=== PATIENT | male | born 1945 | race Caucasian/White ===

== ENCOUNTER 2024-04-02 13:40 | Inpatient (IN) | payer MEDICARE, BC ==
[~2024-04-02] VITALS: Ht 172.7 cm; Wt 58.8 kg
[2024-04-02] MEDS: PROPOFOL 100 ML IV ONE (13:57)
[2024-04-02] MEDS: ROCURONIUM 10MG/ML 10ML VIAL IV ONE ×2 (13:59→14:07)
[2024-04-02] MEDS: ETOMIDATE (2MG/ML) 20ML VIAL IV ONE ×2 (13:59→14:06)
[2024-04-02] MEDS: PROPOFOL 100 ML IV SCH (14:13)
[2024-04-02 14:27] LABS: Urine Bacteria None Seen /hpf (None Seen)
[2024-04-02 14:30] VITALS: PULSE 140; RESP 16; O2SAT 93
[2024-04-02] MEDS: SODIUM CHLORIDE 0.9% 2,000 ML IV ONE (14:30)
[2024-04-02] MEDS: CEFEPIME 2GM/50ML NS 50 ML IV ONE ×2 (14:30→20:26)
[2024-04-02] MEDS: ONDANSETRON HCL 4 MG/2 ML VIAL IV ONE (14:30)
[2024-04-02 14:39] LABS: Urine Blood TRACE /uL (Negative); Urine Clarity Clear (Clear); Urine Color Yellow (Yellow); Urine Protein, UAD 1+ (Negative); Urine Specific Gravity 1.024 (1.001-1.035); Urine Urobilinogen Normal (Negative); Urine WBC 1 /hpf (0 - 3); Urine pH 5.5 (5.0-9.0)
[2024-04-02 14:57] LABS: Amphetamine Screen, Urine Neg (NEGATIVE)
[2024-04-02 14:58] LABS: Barbiturate Scree,Urine Neg (NEGATIVE); Benzodiazephine Screen, Urine Neg (NEGATIVE); Cannabinoid Screen, Urine Neg (NEGATIVE); Cocaine Screen, Urine Neg (NEGATIVE); Opiate Scree,Urine Neg (NEGATIVE); Phencyclidine Screen, Urine Neg (NEGATIVE)
[2024-04-02 15:10] LABS: Basophils # (auto) 0 10 ^3/uL (0-0.2); Basophils % (auto) 0.1 % (0.0-2.0); Eosinophils # (auto) 0 10 ^3/uL (0-0.8); Hematocrit 38.6 % (41.0-53.0); Hemoglobin 12.2 g/dL (13.5-17.5); Lymphocytes % (auto) 14.3 % (10.0-50.0); Mean Corpuscular Hemoglobin 27.6 pg (28.0-32.0); Mean Corpuscular Hgb Conc. 31.7 g/dL (32.0-36.0); Mean Corpuscular Volume 87.1 fL (80.0-100.0); Monocytes # (auto) 1.4 10 ^3/uL (0-1.3); Monocytes % (auto) 6.4 % (0.0-12.0); Neutrophils # (auto) 16.9 10 ^3/uL (1.6-8.6); Neutrophils % (auto) 79.2 % (37.0-80.0); Nucleated Red Blood Cells % 0.1 %; Platelet Count (auto) 282 10^3/uL (140-450); Red Blood Cells 4.43 10^6/uL (4.5-5.90); Red Cell Distribution Width 18.3 % (11.8-14.3); White Blood Cell 21.3 10^3/uL (4.4-10.8)
[2024-04-02 15:20] LABS: Albumin 4.1 g/dL (3.2-4.8); Alkaline Phosphatase 59 U/L (46-116); Anion Gap 8 (5-15); Aspartate Aminotransferase 15 U/L (13-40); Bilirubin, Total 1.9 mg/dL (0.2-1.0); Blood Urea Nitrogen 10 mg/dL (9-23); Calcium 9.1 mg/dL (8.7-10.4); Carbon Dioxide 22 mmol/L (20-30); Chloride 108 mmol/L (98-107); Glucose 191 mg/dL (74-106); Magnesium 1.7 mg/dL (1.6-2.6); Potassium 3.3 mmol/L (3.5-5.1); Sodium 138 mmol/L (136-145); Total Protein 7.8 g/dL (5.7-8.2)
[2024-04-02 15:24] LABS: Alanine Aminotransferase < 9 U/L (7-40)
[2024-04-02 15:25] LABS: Salicylate < 3.0 mg/dL (2.8-20.0)
[2024-04-02] MEDS: SODIUM CHLORIDE 0.9% 1,000 ML IV ONE (15:50)
[2024-04-02] MEDS: ACETAMINOPHEN IV 1000 MG/100ML (10MG/ML) IV STA (15:59)
[2024-04-02 16:01] LABS: Base Excess -12.8 mmol/L (-2.0-3.0)
[2024-04-02] MEDS: VANCOMYCIN 1GM/200ML 200 ML IV ONE (16:30)
[2024-04-02 16:52] LABS: Lactic Acid w/Reflex 2.1 mmol/L (0.4-2.0)
[2024-04-02] MEDS: AZITHROMYCIN 500MG/ 250ML 250 ML IV ONE (18:00)
[2024-04-02] MEDS ORDERED: NITROGLYCERIN 0.4 MG SL TAB SL PRN (19:00)
[2024-04-02] MEDS ORDERED: MORPHINE SULFATE INJ 2 MG/ml SYRG IV PRN (19:00)
[2024-04-02 19:30] VITALS: PULSE 126; RESP 27; O2SAT 95
[2024-04-02] MEDS ORDERED: VANCOMYCIN PER PHARMACY 0 MG IV SCH (19:30)
[2024-04-02] MEDS: MIDAZOLAM DRIP 50 mg/50mL 50 ML IV ONE (19:38)
[2024-04-02] MEDS ORDERED: CEFEPIME 2GM/50ML NS 50 ML IV ONE (19:45)
[2024-04-02] MEDS: MIDAZOLAM DRIP 50 mg/50mL 50 ML IV SCH (20:08)
[2024-04-02] MEDS: NOREPINEPHRINE 8 MG/250ML KIT 250 ML IV SCH (20:08)
[2024-04-02] MEDS ORDERED: DEXTROSE (50%) 50ML SYRG IV PRN (20:15)
[2024-04-02 20:16] LABS: Base Excess -8.6 mmol/L (-2.0-3.0)
[2024-04-02 20:22] VITALS: BP 77/56; PULSE 122; RESP 28; O2SAT 99
[2024-04-02] MEDS: POTASSIUM CHL 20MEQ/100ML 100 ML IV ONE (20:42)
[2024-04-02] MEDS: MAGNESIUM SULFATE 1GM/100ML 100 ML IV SCH (21:00)
[2024-04-02 21:30] VITALS: BP 99/62; PULSE 117; RESP 26; TEMP 100.2; O2SAT 99
[2024-04-02] MEDS: VANCOMYCIN 1.5GM/300ML 300 ML IV ONE (21:59)
[2024-04-02 22:03] VITALS: BP 100/62; PULSE 113; RESP 30; O2SAT 98
[2024-04-02 22:15] LABS: Base Excess -9.3 mmol/L (-2.0-3.0)
[2024-04-02] MEDS ORDERED: CLINIMIX PER PHARMACY 0 ML IV SCH (22:30)
[2024-04-02] MEDS: AMINO ACID INFUSION IN D10W 1,000 ML IV SCH (22:41)
[2024-04-03] VITALS (108 sets, daily range): BP systolic 83–152; BP diastolic 37–81; PULSE 65–137; RESP 11–32; TEMP 97.2–100.6; O2SAT 94–100
[2024-04-03] MEDS: ACCU-CHEK COMFORT CURVE STRIP VI SCH (00:16)
[2024-04-03] MEDS: InsuLIN REG 1unit/0.01ml Soln (100units/ml) SC SCH (00:17)
[2024-04-03] MEDS: fentaNYL Drip 2500mCg/250mlNS 250 ML IV SCH (02:00)
[2024-04-03 04:21] LABS: Basophils # (auto) 0 10 ^3/uL (0-0.2); Basophils % (auto) 0.2 % (0.0-2.0); Eosinophils # (auto) 0 10 ^3/uL (0-0.8); Hematocrit 33.2 % (41.0-53.0); Hemoglobin 10.8 g/dL (13.5-17.5); Lymphocytes % (auto) 7.6 % (10.0-50.0); Mean Corpuscular Hemoglobin 28.2 pg (28.0-32.0); Mean Corpuscular Hgb Conc. 32.5 g/dL (32.0-36.0); Monocytes # (auto) 0.8 10 ^3/uL (0-1.3); Monocytes % (auto) 5.8 % (0.0-12.0); Neutrophils # (auto) 11.6 10 ^3/uL (1.6-8.6); Neutrophils % (auto) 86.4 % (37.0-80.0); Platelet Count (auto) 205 10^3/uL (140-450); Red Blood Cells 3.81 10^6/uL (4.5-5.90); Red Cell Distribution Width 17.6 % (11.8-14.3); White Blood Cell 13.4 10^3/uL (4.4-10.8)
[2024-04-03 04:41] LABS: Albumin 3.3 g/dL (3.2-4.8); Alkaline Phosphatase 51 U/L (46-116); Anion Gap 4 (5-15); Aspartate Aminotransferase 25 U/L (13-40); BUN/Creatinine Ratio 15.8 (10.0-20.0); Blood Urea Nitrogen 12 mg/dL (9-23); Calcium 8.1 mg/dL (8.7-10.4); Carbon Dioxide 20 mmol/L (20-30); Chloride 111 mmol/L (98-107); Glucose 217 mg/dL (74-106); Magnesium 1.8 mg/dL (1.6-2.6); Potassium 3.9 mmol/L (3.5-5.1); Sodium 135 mmol/L (136-145)
[2024-04-03 04:42] LABS: Bilirubin, Total 0.7 mg/dL (0.2-1.0); Phosphorus 1.5 mg/dL (2.4-5.1); Total Protein 6.2 g/dL (5.7-8.2)
[2024-04-03 04:43] LABS: Alanine Aminotransferase < 9 U/L (7-40)
[2024-04-03] MEDS: CEFEPIME 2GM/50ML NS 50 ML IV SCH (06:00)
[2024-04-03] MEDS: ACETAMINOPHEN 325 MG TAB PO PRN (06:40)
[2024-04-03 08:19] LABS: Base Excess -6.6 mmol/L (-2.0-3.0)
[2024-04-03 09:34] LABS: Triglycerides 113 mg/dL (< 150)
[2024-04-03 09:35] LABS: LDL Cholesterol 18 mg/dL (< 100)
[2024-04-03 09:36] LABS: Cholesterol 64 mg/dL (< 200); HDL Cholesterol 23 mg/dL (40-59)
[2024-04-03] MEDS: HEPARIN SODIUM (PORCINE) 5000 UNITS/ML 1ML VIAL IV ONE (09:45)
[2024-04-03] MEDS: MAGNESIUM SULFATE 1GM/100ML 100 ML IV ONE ×2 (09:58→11:38)
[2024-04-03 10:39] LABS: INR 1.1 (0.9-1.15); Partial Thromboplastin Time 33.3 SEC (24.5-34.5); Prothrombin Time 11.6 sec (9.3-11.8)
[2024-04-03 10:57] LABS: Basophils # (auto) 0 10 ^3/uL (0-0.2); Basophils % (auto) 0.2 % (0.0-2.0); Eosinophils # (auto) 0 10 ^3/uL (0-0.8); Eosinophils % (auto) 0.1 % (0.0-7.0); Hematocrit 32.6 % (41.0-53.0); Hemoglobin 10.5 g/dL (13.5-17.5); Lymphocytes # (auto) 0.8 10 ^3/uL (0.4-5.4); Lymphocytes % (auto) 7.2 % (10.0-50.0); Mean Corpuscular Hemoglobin 28.4 pg (28.0-32.0); Mean Corpuscular Hgb Conc. 32.1 g/dL (32.0-36.0); Mean Corpuscular Volume 88.3 fL (80.0-100.0); Monocytes # (auto) 0.5 10 ^3/uL (0-1.3); Monocytes % (auto) 4.7 % (0.0-12.0); Neutrophils # (auto) 9.4 10 ^3/uL (1.6-8.6); Neutrophils % (auto) 87.8 % (37.0-80.0); Platelet Count (auto) 190 10^3/uL (140-450); Red Blood Cells 3.69 10^6/uL (4.5-5.90); Red Cell Distribution Width 18.3 % (11.8-14.3); White Blood Cell 10.7 10^3/uL (4.4-10.8)
[2024-04-03] MEDS: HEPARIN DRIP/D5W 100UNITS/ML 250 ML IV SCH ×2 (11:38→20:53)
[2024-04-03] MEDS: ASPirin 81 mg TAB PO SCH (11:38)
[2024-04-03] MEDS: ATORVASTATIN 20 MG TAB PO SCH (11:38)
[2024-04-03] MEDS ORDERED: ACCU-CHEK COMFORT CURVE STRIP VI SCH (12:00)
[2024-04-03] MEDS ORDERED: DEXTROSE (50%) 50ML SYRG IV SCH (12:00)
[2024-04-03] MEDS ORDERED: InsuLIN REG 1unit/0.01ml Soln (100units/ml) SC SCH (12:00)
[2024-04-03] MEDS: PANTOPRAZOLE 40 MG/10 ML VIAL INJ IV ONE (13:03)
[2024-04-03] MEDS: methylPREDNISolone SOD SUCC 40 MG/ML VL IV ONE (13:04)
[2024-04-03] MEDS: POTASSIUM PHOSPHATE 22 MEQ in SODIUM CHL 0.9% 100 ML IV ONE (13:15)
[2024-04-03] MEDS: AMIODARONE 450mg/250ml AE 250 ML IV ONE (13:32)
[2024-04-03] MEDS: AMIODARONE BOLUS KIT 100 ML IV ONE ×2 (13:33→13:38)
[2024-04-03] MEDS: AMIODARONE 450mg/250ml AE 250 ML IV SCH ×2 (13:48→20:50)
[2024-04-03] MEDS ORDERED: ALBUTEROL SULF 2.5 MG/0.5ML(0.5%) NEB SOLN NEB SCH (18:00)
[2024-04-03 18:46] LABS: % Iron Saturation 4.5 % (20-55)
[2024-04-03] MEDS: IPRATROPIUM BROM 0.5 MG/2.5ML INH SOL NEB SCH (18:55)
[2024-04-03] MEDS: LEVALBUTEROL HCL 1.25 MG/3 ML NEB NEB SCH (18:55)
[2024-04-03 19:39] LABS: INR 1.19 (0.9-1.15); Prothrombin Time 12.5 sec (9.3-11.8)
[2024-04-03 19:45] LABS: Partial Thromboplastin Time > 139.0 SEC (24.5-34.5)
[2024-04-03] MEDS ORDERED: APIX5TAB PO (20:11)
[2024-04-03] MEDS ORDERED: PREG200C36 PO (20:11)
[2024-04-03] MEDS ORDERED: GLIP5TAB21 PO (20:11)
[2024-04-03] MEDS ORDERED: ATOR20TA50 PO (20:11)
[2024-04-03] MEDS: VANCOMYCIN 1GM/200ML 200 ML IV SCH (20:25)
[2024-04-03] MEDS: methylPREDNISolone SOD SUCC 40 MG/ML VL IV SCH (22:06)
[2024-04-03] MEDS: Glucerna 1.2 Cal 1Liter BOTTLE GT SCH (23:14)
[2024-04-04] VITALS (102 sets, daily range): BP systolic 91–158; BP diastolic 41–61; PULSE 47–84; RESP 10–28; TEMP 96.1–99.1; O2SAT 70–100
[2024-04-04 04:36] LABS: Hematocrit 30.5 % (41.0-53.0); Mean Corpuscular Hemoglobin 28.7 pg (28.0-32.0); Mean Corpuscular Hgb Conc. 32.9 g/dL (32.0-36.0); Mean Corpuscular Volume 87.2 fL (80.0-100.0); Platelet Count (auto) 203 10^3/uL (140-450); White Blood Cell 10.6 10^3/uL (4.4-10.8)
[2024-04-04 04:54] LABS: Basophils % (manual) 0 (0.0-2.0); Blast Cells 0; Eosinophils % (manual) 0 (0-7); Metamyelocytes % 0; Myelocytes % 0; Promyelocytes % 0; Reactive Lymphocytes 0
[2024-04-04 04:59] LABS: Albumin 3.1 g/dL (3.2-4.8); Alkaline Phosphatase 65 U/L (46-116); Anion Gap 7 (5-15); Aspartate Aminotransferase 20 U/L (13-40); BUN/Creatinine Ratio 18.4 (10.0-20.0); Bilirubin, Total 0.5 mg/dL (0.2-1.0); Blood Urea Nitrogen 14 mg/dL (9-23); Calcium 8.4 mg/dL (8.7-10.4); Carbon Dioxide 19 mmol/L (20-31); Chloride 109 mmol/L (98-107); Phosphorus 1.2 mg/dL (2.4-5.1); Potassium 3.8 mmol/L (3.5-5.1); Sodium 135 mmol/L (136-145); Total Protein 5.7 g/dL (5.7-8.2)
[2024-04-04 05:23] LABS: Alanine Aminotransferase 9 U/L (7-40); Glucose 374 mg/dL (74-106)
[2024-04-04 06:25] LABS: Anisocytosis Slight; Band Neutrophils % (manual) 2; Lymphocytes % (manual) 1 (10.0-50.0); Monocytes % (manual) 1 (0-12); Platelet Estimate Adequate
[2024-04-04 06:41] LABS: INR 1.07 (0.9-1.15); Partial Thromboplastin Time 36.5 SEC (24.5-34.5); Prothrombin Time 11.3 sec (9.3-11.8)
[2024-04-04 07:35] LABS: Base Excess -7.7 mmol/L (-2.0-3.0)
[2024-04-04] MEDS: PANTOPRAZOLE 40 MG/10 ML VIAL INJ IV SCH (08:16)
[2024-04-04] MEDS: POTASSIUM PHOSPHATE 22 MEQ in SODIUM CHL 0.9% 100 ML IV ONE (08:16)
[2024-04-04] MEDS: IOHEXOL 300 MG/ML 100ML BOTTLE IJ ONE (09:34)
[2024-04-04] MEDS ORDERED: ENOXAPARIN SOD 40 MG/0.4 ML SYRINGE SC SCH (15:15)
[2024-04-04] MEDS: AMIODARONE HCL 200 MG TAB PO ONE (16:29)
[2024-04-04] MEDS: AMIODARONE HCL 200 MG TAB PO SCH (22:00)
[2024-04-04] MEDS ORDERED: AMIODARONE HCL 200 MG TAB NG SCH (22:00)
[2024-04-04] MEDS: ENOXAPARIN SOD 80 MG/0.8ML SYRINGE SC SCH (22:00)
[2024-04-05] VITALS (108 sets, daily range): BP systolic 98–176; BP diastolic 45–108; PULSE 53–95; RESP 12–32; TEMP 97–99; O2SAT 94–100
[2024-04-05 05:00] LABS: Basophils # (auto) 0 10 ^3/uL (0-0.2); Basophils % (auto) 0.1 % (0.0-2.0); Eosinophils # (auto) 0 10 ^3/uL (0-0.8); Hematocrit 28.2 % (41.0-53.0); Hemoglobin 9.4 g/dL (13.5-17.5); Lymphocytes # (auto) 0.2 10 ^3/uL (0.4-5.4); Lymphocytes % (auto) 3.3 % (10.0-50.0); Mean Corpuscular Hemoglobin 28.8 pg (28.0-32.0); Mean Corpuscular Hgb Conc. 33.3 g/dL (32.0-36.0); Mean Corpuscular Volume 86.6 fL (80.0-100.0); Monocytes # (auto) 0.2 10 ^3/uL (0-1.3); Monocytes % (auto) 2.5 % (0.0-12.0); Neutrophils # (auto) 6.8 10 ^3/uL (1.6-8.6); Neutrophils % (auto) 94.1 % (37.0-80.0); Platelet Count (auto) 167 10^3/uL (140-450); Red Blood Cells 3.25 10^6/uL (4.5-5.90); Red Cell Distribution Width 18.4 % (11.8-14.3); White Blood Cell 7.3 10^3/uL (4.4-10.8)
[2024-04-05 05:14] LABS: Albumin 3.2 g/dL (3.2-4.8); Alkaline Phosphatase 60 U/L (46-116); Anion Gap 9 (5-15); Aspartate Aminotransferase < 8 U/L (13-40); BUN/Creatinine Ratio 22.1 (10.0-20.0); Bilirubin, Total 0.5 mg/dL (0.2-1.0); Blood Urea Nitrogen 19 mg/dL (9-23); Calcium 9.2 mg/dL (8.7-10.4); Carbon Dioxide 20 mmol/L (20-31); Chloride 113 mmol/L (98-107); Glucose 296 mg/dL (74-106); Magnesium 2.1 mg/dL (1.6-2.6); Potassium 3.5 mmol/L (3.5-5.1); Sodium 142 mmol/L (136-145)
[2024-04-05 05:15] LABS: Total Protein 6.2 g/dL (5.7-8.2)
[2024-04-05 05:23] LABS: Alanine Aminotransferase < 9 U/L (7-40)
[2024-04-06] VITALS (90 sets, daily range): BP systolic 122–185; BP diastolic 55–150; PULSE 61–121; RESP 13–36; TEMP 97.5–100.4; O2SAT 85–100
[2024-04-06 04:58] LABS: Basophils # (auto) 0 10 ^3/uL (0-0.2); Eosinophils # (auto) 0 10 ^3/uL (0-0.8); Hematocrit 29.2 % (41.0-53.0); Hemoglobin 9.5 g/dL (13.5-17.5); Lymphocytes # (auto) 0.2 10 ^3/uL (0.4-5.4); Lymphocytes % (auto) 3.1 % (10.0-50.0); Mean Corpuscular Hemoglobin 28.1 pg (28.0-32.0); Mean Corpuscular Hgb Conc. 32.7 g/dL (32.0-36.0); Monocytes # (auto) 0.2 10 ^3/uL (0-1.3); Neutrophils # (auto) 7.6 10 ^3/uL (1.6-8.6); Neutrophils % (auto) 93.9 % (37.0-80.0); Platelet Count (auto) 177 10^3/uL (140-450); Red Blood Cells 3.39 10^6/uL (4.5-5.90); Red Cell Distribution Width 18.6 % (11.8-14.3); White Blood Cell 8.1 10^3/uL (4.4-10.8)
[2024-04-06 07:23] LABS: Albumin 3.4 g/dL (3.2-4.8); Alkaline Phosphatase 57 U/L (46-116); Anion Gap 11 (5-15); Aspartate Aminotransferase 11 U/L (13-40); BUN/Creatinine Ratio 30.8 (10.0-20.0); Bilirubin, Total 0.8 mg/dL (0.2-1.0); Blood Urea Nitrogen 24 mg/dL (9-23); Calcium 9.1 mg/dL (8.7-10.4); Carbon Dioxide 19 mmol/L (20-31); Chloride 114 mmol/L (98-107); Glucose 288 mg/dL (74-106); Potassium 3.4 mmol/L (3.5-5.1); Sodium 144 mmol/L (136-145); Total Protein 6.4 g/dL (5.7-8.2)
[2024-04-06 07:24] LABS: Alanine Aminotransferase < 9 U/L (7-40)
[2024-04-06 07:51] LABS: Base Excess -4.1 mmol/L (-2.0-3.0)
[2024-04-06] MEDS: hydrALAZINE HCL 20 MG/ML VL IV PRN (10:58)
[2024-04-06] MEDS: POTASSIUM CHL 20MEQ/100ML 100 ML IV SCH (11:33)
[2024-04-06] MEDS: LABETALOL HCL 20 MG/4 ML VL IV PRN (13:37)
[2024-04-06] MEDS: EPINEPHrine HCL 0.5 ML NEB ONE (14:18)
[2024-04-06 15:16] LABS: Base Excess -0.7 mmol/L (-2.0-3.0)
[2024-04-06] MEDS: LORazepam 2MG/ML-1ML VIAL IV ONE (19:58)
[2024-04-07] VITALS (37 sets, daily range): BP systolic 102–166; BP diastolic 48–96; PULSE 73–133; RESP 18–35; TEMP 97.5–98.3; O2SAT 85–100
[2024-04-07 04:28] LABS: Basophils # (auto) 0 10 ^3/uL (0-0.2); Basophils % (auto) 0.1 % (0.0-2.0); Eosinophils # (auto) 0 10 ^3/uL (0-0.8); Hematocrit 33.3 % (41.0-53.0); Hemoglobin 10.9 g/dL (13.5-17.5); Lymphocytes # (auto) 0.7 10 ^3/uL (0.4-5.4); Lymphocytes % (auto) 6.2 % (10.0-50.0); Mean Corpuscular Hemoglobin 27.9 pg (28.0-32.0); Mean Corpuscular Hgb Conc. 32.8 g/dL (32.0-36.0); Mean Corpuscular Volume 85.2 fL (80.0-100.0); Monocytes # (auto) 1.1 10 ^3/uL (0-1.3); Monocytes % (auto) 10.1 % (0.0-12.0); Neutrophils # (auto) 8.9 10 ^3/uL (1.6-8.6); Neutrophils % (auto) 83.6 % (37.0-80.0); Platelet Count (auto) 225 10^3/uL (140-450); Red Cell Distribution Width 18.6 % (11.8-14.3); White Blood Cell 10.7 10^3/uL (4.4-10.8)
[2024-04-07 04:47] LABS: Alanine Aminotransferase 10 U/L (7-40); Alkaline Phosphatase 57 U/L (46-116); Anion Gap 5 (5-15); Aspartate Aminotransferase 18 U/L (13-40); Blood Urea Nitrogen 18 mg/dL (9-23); Calcium 9.5 mg/dL (8.7-10.4); Carbon Dioxide 27 mmol/L (20-31); Chloride 109 mmol/L (98-107); Glucose 234 mg/dL (74-106); Phosphorus 2.4 mg/dL (2.4-5.1); Potassium 3.4 mmol/L (3.5-5.1); Sodium 141 mmol/L (136-145)
[2024-04-07 04:48] LABS: Bilirubin, Total 1.3 mg/dL (0.2-1.0); Total Protein 6.8 g/dL (5.7-8.2)
[2024-04-07 05:21] LABS: Albumin 3.6 g/dL (3.2-4.8)
[2024-04-07 08:36] LABS: Base Excess -1.2 mmol/L (-2.0-3.0)
[2024-04-07] MEDS: POTASSIUM CHL 20MEQ/100ML 100 ML IV ONE (10:11)
[2024-04-07] MEDS ORDERED: DEXTROSE (50%) 50ML SYRG IV PRN (16:45)
[2024-04-07] MEDS: InsuLIN REG 1unit/0.01ml Soln (100units/ml) SC SCH ×2 (17:18→21:36)
[2024-04-07] MEDS: ACCU-CHEK COMFORT CURVE STRIP VI SCH (17:22)
[2024-04-07] MEDS: OXYCODONE W/ ACETAMINOPHEN 5/325MG TABLET PO PRN (23:23)
[2024-04-08] VITALS (61 sets, daily range): BP systolic 122–186; BP diastolic 62–101; PULSE 81–119; RESP 14–32; TEMP 97.1–98.8; O2SAT 87–100
[2024-04-08 03:46] LABS: Basophils # (auto) 0 10 ^3/uL (0-0.2); Eosinophils # (auto) 0 10 ^3/uL (0-0.8); Hematocrit 38.5 % (41.0-53.0); Hemoglobin 12.8 g/dL (13.5-17.5); Lymphocytes # (auto) 0.5 10 ^3/uL (0.4-5.4); Lymphocytes % (auto) 3.6 % (10.0-50.0); Mean Corpuscular Hemoglobin 27.8 pg (28.0-32.0); Mean Corpuscular Hgb Conc. 33.2 g/dL (32.0-36.0); Mean Corpuscular Volume 83.7 fL (80.0-100.0); Monocytes # (auto) 0.6 10 ^3/uL (0-1.3); Monocytes % (auto) 4.7 % (0.0-12.0); Neutrophils # (auto) 11.7 10 ^3/uL (1.6-8.6); Neutrophils % (auto) 91.7 % (37.0-80.0); Platelet Count (auto) 324 10^3/uL (140-450); Red Cell Distribution Width 18.7 % (11.8-14.3); White Blood Cell 12.8 10^3/uL (4.4-10.8)
[2024-04-08 04:04] LABS: Alanine Aminotransferase 13 U/L (7-40); Albumin 4.2 g/dL (3.2-4.8); Alkaline Phosphatase 70 U/L (46-116); Anion Gap 11 (5-15); Aspartate Aminotransferase 16 U/L (13-40); BUN/Creatinine Ratio 28.4 (10.0-20.0); Blood Urea Nitrogen 21 mg/dL (9-23); Calcium 9.7 mg/dL (8.7-10.4); Carbon Dioxide 24 mmol/L (20-31); Chloride 105 mmol/L (98-107); Glucose 277 mg/dL (74-106); Magnesium 2.2 mg/dL (1.6-2.6); Potassium 3.2 mmol/L (3.5-5.1); Sodium 140 mmol/L (136-145); Total Protein 7.8 g/dL (5.7-8.2)
[2024-04-08] MEDS: POTASSIUM CHL 20MEQ/100ML 100 ML IV SCH ×2 (05:24→11:03)
[2024-04-08] MEDS: PREGABALIN 25 MG CAP PO SCH (09:20)
[2024-04-08] MEDS ORDERED: IBUPROFEN 600 MG TAB PO ONE (09:45)
[2024-04-08] MEDS: COLCHICINE 0.6 MG CAP PO SCH (11:03)
[2024-04-08] MEDS: METOPROLOL TARTRATE 25 MG TAB PO SCH ×2 (11:04→22:07)
[2024-04-08] MEDS ORDERED: IBUPROFEN 600 MG TAB PO SCH (14:00)
[2024-04-08] MEDS: IBUPROFEN 100MG/5ML ORAL SUSP 100 MG/5 ML UD PO SCH (14:00)
[2024-04-08] MEDS: PSYLLIUM PWD 5.8GM PKG GT ONE (17:21)
[2024-04-08] MEDS: FUROSEMIDE 20 MG/2 ML VIAL IV ONE (17:21)
[2024-04-08] MEDS: LABETALOL HCL 20 MG/4 ML VL IV PRN (18:17)
[2024-04-08] MEDS: PSYLLIUM PWD 5.8GM PKG GT SCH (22:09)
[2024-04-09] VITALS (90 sets, daily range): BP systolic 113–162; BP diastolic 60–92; PULSE 73–110; RESP 16–35; TEMP 97.2–98.6; O2SAT 89–100
[2024-04-09 05:03] LABS: Basophils # (auto) 0.1 10 ^3/uL (0-0.2); Basophils % (auto) 0.4 % (0.0-2.0); Eosinophils # (auto) 0.2 10 ^3/uL (0-0.8); Eosinophils % (auto) 1.4 % (0.0-7.0); Hematocrit 43.6 % (41.0-53.0); Hemoglobin 13.8 g/dL (13.5-17.5); Lymphocytes # (auto) 0.7 10 ^3/uL (0.4-5.4); Lymphocytes % (auto) 4.4 % (10.0-50.0); Mean Corpuscular Hemoglobin 27.5 pg (28.0-32.0); Mean Corpuscular Hgb Conc. 31.5 g/dL (32.0-36.0); Mean Corpuscular Volume 87.2 fL (80.0-100.0); Monocytes # (auto) 0.8 10 ^3/uL (0-1.3); Monocytes % (auto) 4.7 % (0.0-12.0); Neutrophils # (auto) 14.4 10 ^3/uL (1.6-8.6); Neutrophils % (auto) 89.1 % (37.0-80.0); Nucleated Red Blood Cells % 0.1 %; Platelet Count (auto) 350 10^3/uL (140-450); Red Cell Distribution Width 19.6 % (11.8-14.3); White Blood Cell 16.2 10^3/uL (4.4-10.8)
[2024-04-09] MEDS ORDERED: D5W 5% 1,000 ML IV SCH (11:45)
[2024-04-09 12:38] LABS: Glucose 278 mg/dL (74-106)
[2024-04-09 12:39] LABS: Alkaline Phosphatase 78 U/L (46-116); Magnesium 2.2 mg/dL (1.6-2.6)
[2024-04-09 12:41] LABS: Aspartate Aminotransferase 17 U/L (13-40); Bilirubin, Total 1.1 mg/dL (0.2-1.0); Phosphorus 3.8 mg/dL (2.4-5.1); Total Protein 7.6 g/dL (5.7-8.2)
[2024-04-09 12:52] LABS: Alanine Aminotransferase 15 U/L (7-40); Anion Gap 9 (5-15); Calcium 9.4 mg/dL (8.7-10.4); Carbon Dioxide 23 mmol/L (20-31); Chloride 108 mmol/L (98-107); Potassium 3.6 mmol/L (3.5-5.1); Sodium 140 mmol/L (136-145)
[2024-04-09 12:53] LABS: Blood Urea Nitrogen 36 mg/dL (9-23)
[2024-04-09] MEDS: VANCOMYCIN 1GM/200ML 200 ML IV ONE (21:38)
[2024-04-10] VITALS (39 sets, daily range): BP systolic 102–152; BP diastolic 53–83; PULSE 72–106; RESP 16–29; TEMP 97.8–98.4; O2SAT 87–100
[2024-04-10 05:12] LABS: Basophils # (auto) 0 10 ^3/uL (0-0.2); Basophils % (auto) 0.2 % (0.0-2.0); Eosinophils # (auto) 0 10 ^3/uL (0-0.8); Hematocrit 41.3 % (41.0-53.0); Hemoglobin 13.5 g/dL (13.5-17.5); Lymphocytes # (auto) 0.6 10 ^3/uL (0.4-5.4); Lymphocytes % (auto) 3.4 % (10.0-50.0); Mean Corpuscular Hemoglobin 27.8 pg (28.0-32.0); Mean Corpuscular Hgb Conc. 32.7 g/dL (32.0-36.0); Mean Corpuscular Volume 84.8 fL (80.0-100.0); Monocytes # (auto) 0.6 10 ^3/uL (0-1.3); Monocytes % (auto) 3.3 % (0.0-12.0); Neutrophils # (auto) 17.7 10 ^3/uL (1.6-8.6); Neutrophils % (auto) 93.1 % (37.0-80.0); Platelet Count (auto) 402 10^3/uL (140-450); Red Blood Cells 4.86 10^6/uL (4.5-5.90)
[2024-04-10] MEDS: levoFLOXacin 500MG 100 ML IV SCH (10:47)
[2024-04-10 12:05] LABS: Alanine Aminotransferase 25 U/L (7-40); Albumin 4.1 g/dL (3.2-4.8); Alkaline Phosphatase 86 U/L (46-116); Anion Gap 12 (5-15); Aspartate Aminotransferase 35 U/L (13-40); BUN/Creatinine Ratio 41.4 (10.0-20.0); Bilirubin, Total 1.1 mg/dL (0.2-1.0); Blood Urea Nitrogen 41 mg/dL (9-23); Calcium 9.5 mg/dL (8.7-10.4); Carbon Dioxide 19 mmol/L (20-31); Chloride 111 mmol/L (98-107); Glucose 257 mg/dL (74-106); Magnesium 2.5 mg/dL (1.6-2.6); Phosphorus 3.8 mg/dL (2.4-5.1); Potassium 4.2 mmol/L (3.5-5.1); Sodium 142 mmol/L (136-145)
[2024-04-10 12:06] LABS: Total Protein 8.1 g/dL (5.7-8.2)
[2024-04-11] VITALS (70 sets, daily range): BP systolic 91–123; BP diastolic 37–80; PULSE 64–97; RESP 14–27; TEMP 97.2–98.7; O2SAT 70–100
[2024-04-11 06:13] LABS: Anion Gap 11 (5-15); Carbon Dioxide 20 mmol/L (20-31); Chloride 112 mmol/L (98-107); Potassium 3.4 mmol/L (3.5-5.1); Sodium 143 mmol/L (136-145)
[2024-04-11 06:15] LABS: Calcium 8.9 mg/dL (8.7-10.4)
[2024-04-11 06:19] LABS: Blood Urea Nitrogen 40 mg/dL (9-23); Glucose 207 mg/dL (74-106)
[2024-04-11 06:20] LABS: Magnesium 2.4 mg/dL (1.6-2.6)
[2024-04-11 06:22] LABS: Phosphorus 3.2 mg/dL (2.4-5.1)
[2024-04-11 06:24] LABS: Basophils # (auto) 0 10 ^3/uL (0-0.2); Basophils % (auto) 0.1 % (0.0-2.0); Eosinophils # (auto) 0 10 ^3/uL (0-0.8); Eosinophils % (auto) 0.1 % (0.0-7.0); Hematocrit 38.9 % (41.0-53.0); Lymphocytes # (auto) 1.8 10 ^3/uL (0.4-5.4); Lymphocytes % (auto) 10.3 % (10.0-50.0); Mean Corpuscular Hemoglobin 28.1 pg (28.0-32.0); Mean Corpuscular Hgb Conc. 33.4 g/dL (32.0-36.0); Mean Corpuscular Volume 84.2 fL (80.0-100.0); Monocytes # (auto) 1.1 10 ^3/uL (0-1.3); Monocytes % (auto) 6.1 % (0.0-12.0); Neutrophils # (auto) 14.7 10 ^3/uL (1.6-8.6); Neutrophils % (auto) 83.4 % (37.0-80.0); Platelet Count (auto) 313 10^3/uL (140-450); Red Blood Cells 4.62 10^6/uL (4.5-5.90); Red Cell Distribution Width 18.6 % (11.8-14.3); White Blood Cell 17.6 10^3/uL (4.4-10.8)
[2024-04-11 09:08] LABS: Base Excess -2.3 mmol/L (-2.0-3.0)
[2024-04-11 11:21] LABS: Base Excess -3.1 mmol/L (-2.0-3.0)
[2024-04-11] MEDS: POTASSIUM CHL 20MEQ/100ML 100 ML IV ONE (12:30)
[2024-04-12] VITALS (33 sets, daily range): BP systolic 89–130; BP diastolic 41–98; PULSE 65–100; RESP 12–24; TEMP 97.8–98; O2SAT 82–100
[2024-04-12 05:09] LABS: Basophils # (auto) 0 10 ^3/uL (0-0.2); Basophils % (auto) 0.2 % (0.0-2.0); Eosinophils # (auto) 0 10 ^3/uL (0-0.8); Eosinophils % (auto) 0.2 % (0.0-7.0); Hematocrit 37.8 % (41.0-53.0); Hemoglobin 12.4 g/dL (13.5-17.5); Lymphocytes # (auto) 2.2 10 ^3/uL (0.4-5.4); Lymphocytes % (auto) 12.8 % (10.0-50.0); Mean Corpuscular Hemoglobin 27.6 pg (28.0-32.0); Mean Corpuscular Hgb Conc. 32.7 g/dL (32.0-36.0); Mean Corpuscular Volume 84.4 fL (80.0-100.0); Monocytes # (auto) 1.1 10 ^3/uL (0-1.3); Monocytes % (auto) 6.5 % (0.0-12.0); Neutrophils % (auto) 80.3 % (37.0-80.0); Platelet Count (auto) 285 10^3/uL (140-450); Red Blood Cells 4.48 10^6/uL (4.5-5.90); Red Cell Distribution Width 18.2 % (11.8-14.3); White Blood Cell 17.4 10^3/uL (4.4-10.8)
[2024-04-12 05:24] LABS: Alanine Aminotransferase 35 U/L (7-40); Albumin 3.4 g/dL (3.2-4.8); Alkaline Phosphatase 71 U/L (46-116); Anion Gap 9 (5-15); Aspartate Aminotransferase 36 U/L (13-40); BUN/Creatinine Ratio 37.1 (10.0-20.0); Bilirubin, Total 1.6 mg/dL (0.2-1.0); Blood Urea Nitrogen 33 mg/dL (9-23); Calcium 8.6 mg/dL (8.7-10.4); Carbon Dioxide 22 mmol/L (20-31); Chloride 110 mmol/L (98-107); Glucose 153 mg/dL (74-106); Magnesium 2.1 mg/dL (1.6-2.6); Potassium 3.6 mmol/L (3.5-5.1); Sodium 141 mmol/L (136-145); Total Protein 6.5 g/dL (5.7-8.2)
[2024-04-12 06:25] LABS: Triglycerides 130 mg/dL (< 150)
[2024-04-12 06:26] LABS: LDL Cholesterol 44 mg/dL (< 100)
[2024-04-12 06:27] LABS: Cholesterol 89 mg/dL (< 200); HDL Cholesterol 24 mg/dL (40-59)
[2024-04-13] VITALS (22 sets, daily range): BP systolic 82–120; BP diastolic 33–62; PULSE 67–97; RESP 13–24; TEMP 97.4–98; O2SAT 87–100
[2024-04-13] MEDS ORDERED: FLUCONAZOLE 100 MG TAB PO SCH (15:30)
[2024-04-14] MEDS ORDERED: cefTRIAXone 2GM/50ML D5W 50 ML IV SCH (10:00)
== END 2024-04-13 15:51 | disposition left against medical advice (07) | DRG 871 ==
LOC: ER 13:40 → EDBD 13:40 → OVERFLOW 19:18 → ICU WEST 19:18 → DOU IN ICU 04-08 23:23
PROVIDERS: ADMIT Internal Medicine; ATTEND Internal Medicine
PROC: 5A1945Z Respiratory Ventilation, 24-96 Consecutive Hours (ICD-10-PCS; principal; 2024-04-02)
PROC: 0BH17EZ Insertion of Endotracheal Airway into Trachea, Via Natural or Artificial Opening (ICD-10-PCS; 2024-04-02)
PROC: 02HV33Z Insertion of Infusion Device into Superior Vena Cava, Percutaneous Approach (ICD-10-PCS; 2024-04-02)
PROC: 0B9D8ZX Drainage of Right Middle Lung Lobe, Via Natural or Artificial Opening Endoscopic, Diagnostic (ICD-10-PCS; 2024-04-05)
PROC: 0BC78ZZ Extirpation of Matter from Left Main Bronchus, Via Natural or Artificial Opening Endoscopic (ICD-10-PCS; 2024-04-05)
PROC: 05HB33Z Insertion of Infusion Device into Right Basilic Vein, Percutaneous Approach (ICD-10-PCS; 2024-04-08)
PROC: B54MZZA Ultrasonography of Right Upper Extremity Veins, Guidance (ICD-10-PCS; 2024-04-08)
PROC: 5A0935A Assistance with Respiratory Ventilation, Less than 24 Consecutive Hours, High Flow/Velocity Cannula (ICD-10-PCS; 2024-04-11)
PROC: 5A0935A Assistance with Respiratory Ventilation, Less than 24 Consecutive Hours, High Flow/Velocity Cannula (ICD-10-PCS; 2024-04-12)
DX: A41.9 Sepsis, unspecified organism (principal); G93.41 Metabolic encephalopathy; J69.0 Pneumonitis due to inhalation of food and vomit; I21.A1 Myocardial infarction type 2; J96.01 Acute respiratory failure with hypoxia; R65.21 Severe sepsis with septic shock; N17.0 Acute kidney failure with tubular necrosis; J15.0 Pneumonia due to Klebsiella pneumoniae; J18.9 Pneumonia, unspecified organism; E87.20 Acidosis, unspecified; I30.9 Acute pericarditis, unspecified; D68.69 Other thrombophilia; E44.0 Moderate protein-calorie malnutrition; J44.1 Chronic obstructive pulmonary disease with (acute) exacerbation; I48.92 Unspecified atrial flutter; I47.10 Supraventricular tachycardia, unspecified; J44.0 Chronic obstructive pulmonary disease with (acute) lower respiratory infection; E11.65 Type 2 diabetes mellitus with hyperglycemia; I48.0 Paroxysmal atrial fibrillation; E78.5 Hyperlipidemia, unspecified; D64.9 Anemia, unspecified; F03.90 Unspecified dementia, unspecified severity, without behavioral disturbance, psychotic disturbance, mood disturbance, and anxiety; Z79.2 Long term (current) use of antibiotics; Z79.899 Other long term (current) drug therapy; Z79.891 Long term (current) use of opiate analgesic; Z79.01 Long term (current) use of anticoagulants; Y92.89 Other specified places as the place of occurrence of the external cause; Z68.22 Body mass index [BMI] 22.0-22.9, adult
CPT/HCPCS: 31500; 31624; 36415; 36556; 36600; 70450; 71045; 71260; 72125; 74177; 80048; 80053; 80061; 80202; 80307; 80329; 81001; 82140; 82565; 82728; 82805; 82962; 83036; 83540; 83550; 83605; 83735; 83880; 84100; 84443; 84484; 85007; 85025; 85027; 85610; 85730; 87040; 87070; 87077; 87081; 87086; 87088; 87186; 87205; 92507; 92610; 93005; 93306; 94002; 94003; 94640; 97110; 97163; 97530; 99291; 99292; G0378; J0131; J0692; J1815; J1956; J2405; J2470; J2704; J3480; J7060

== ENCOUNTER 2025-01-07 19:38 | Inpatient (IN) | payer MEDICARE, BC ==
[~2025-01-07] VITALS: Ht 177.8 cm; Wt 56.4 kg
[2025-01-07] MEDS: POTASSIUM CHL 20MEQ/100ML 100 ML IV SCH (01:22)
[2025-01-07 19:38] VITALS: PULSE 158; RESP 34; O2SAT 94
[~2025-01-07 19:38] MED LIST: APIX5TAB PO; ATOR20TA50 PO; GLIP5TAB21 PO; PREG200C36 PO
[2025-01-07] MEDS: SODIUM CHLORIDE 0.9% 1,000 ML IV ONE (20:15)
[2025-01-07 20:27] LABS: Hematocrit 39.9 % (41.0-53.0); Hemoglobin 12.7 g/dL (13.5-17.5); Mean Corpuscular Hemoglobin 27.2 pg (28.0-32.0); Mean Corpuscular Volume 85.5 fL (80.0-100.0); Nucleated Red Blood Cells % 0.1 %
[2025-01-07 20:35] LABS: Sodium 140 mmol/L (136-145)
[2025-01-07 20:36] LABS: Anion Gap 18 (5-15); Calcium 10.0 mg/dL (8.7-10.4); Carbon Dioxide 24 mmol/L (20-31); Chloride 98 mmol/L (98-107); Potassium 3.0 mmol/L (3.5-5.1)
[2025-01-07 20:40] LABS: Base Excess -4.6 mmol/L (-2.0-3.0)
[2025-01-07 20:41] LABS: BUN/Creatinine Ratio 8.6 (10.0-20.0)
--- NOTE | 2025-01-07 20:41 | ED.PDOC ---
SOB-HPI HPI Comments Patient is a 79-year-old male with a past medical history of COPD on 2 L oxygen at home, hypertension, type 2 diabetes mellitus,? CHF, ? Atrial fibrillation was brought in to the ER via EMS with a chief complaint of worsening shortness of breath. Patient was picked up from his home where he lives with the family and they reported that he has been having worsening shortness of breath with the last 1-2 weeks associated with cough and yellowish sputum, chills. As per the EMS patient was saturating around 89% on arrival and dropped down to 80s was put on nasal cannula 6 L was still feeling short of breath and was given breathing treatments which did not have much in the patient was put on CPAP and brought to the ED for further evaluation. Patient denied any chest pain, abdominal pain, nausea or vomiting. Chief Complaint: Shortness of Breath Time Seen by MD: 19:38 Primary Care Provider: UNKNOWN Mode of Arrival: EMS Past Medical History PAST MEDICAL HISTORY: COPD, Dementia, DM, HTN Surgical History: Unknown Family History Family History: Reviewed,noncontributory to illness, Unknown Social History Smoker: Quit Greater Than 1 Year Alcohol: Denies ETOH Use Drugs: Denies Drug Use Lives In: Home Constitutional: reports: chills, fatigue, weakness EENTM: denies: blurred vision, double vision, ear bleeding, ear discharge, ear drainage, ear pain, ear ringing, eye pain, eye redness, hearing loss, mouth pain, mouth swelling, nasal discharge, nose bleeding, nose congestion, nose pain, photophobia, tearing, throat pain, throat swelling, voice changes, others Respiratory: reports: cough, SOB at rest, others (Phlegm yellowish in color) Cardiovascular: reports: palpitations Gastrointestinal: denies: abdomen distended, abdominal pain, blood streaked bowels, constipated, diarrhea, dysphagia, difficulty swallowing, hematemesis, melena, nausea, poor appetite, poor fluid intake, rectal bleeding, rectal pain, vomiting, others Genitourinary: denies: burning, dysuria, flank pain, frequency, hematuria, incontinence, penile discharge, penile sore, pain, testicle pain, testicle swelling, urgency, others Neurological: denies: dizziness, fainting, headache, left sided numbness, left sided weakness, numbness, paresthesia, pre-existing deficit, right sided numbness, right sided weakness, seizure, speech problems, tingling, tremors, weakness, others Musculoskeletal: denies: back pain, gout, joint pain, joint swelling, muscle pain, muscle stiffness, neck pain, others Integumetry: denies: bruises, change in color, change in hair/nails, dryness, laceration, lesions, lumps, rash, wounds, others Allergic/Immunocompromised: denies: Difficulty Healing, Frequent Infections, Hives, Itching, others Hematologic/Lymphatic: denies: anemia, blood clots, easy bleeding, easy bruising, swollen glands, others Endocrine: denies: excessive hunger, excessive sweating, excessive thirst, excessive urination, flushing, intolerance to cold, intolerance to heat, unexplained weight gain, unexplained weight loss, others Psychiatric: denies: anxiety, bipolar disorder, depression, hopeless, panic disorder, schizophrenia, sleepless, suicidal, others Physical Exam General Appearance: Cachectic, Moderate Distress HEENT: Normal ENT Inspection, Pharynx Normal, TMs Normal Neck: Full Range of Motion, Non-Tender, Normal, Normal Inspection Respiratory: Accessory Muscle Use, Decreased Breath Sounds, Wheezing Cardiovascular: Irregular, No Edema, No JVD, Tachycardia Breast Exam: Deferred Gastrointestinal: No Organomegaly, Non Tender, No Pulsatile Mass, Normal Bowel Sounds, Soft Genitalia: Deferred Pelvic: Deferred Rectal: Deferred Extremities: No calf tenderness, Normal capillary refill, Normal inspection, Normal range of motion, Non-tender, No pedal edema Neurologic: Alert, 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 Was a procedure done?: No Differential Dx Differential Diagnosis: Other Comments COPD exacerbation, pneumonia, acute on chronic hypoxic respiratory failure, sepsis, atrial fibrillation with RVR X-Ray, Labs, Meds, VS Vital Signs Date Time Temp Pulse Resp B/P (MAP) Pulse Ox O2 Delivery O2 Flow Rate FiO2 01/07/25 21:46 101 104/61 Facial BiPAP Mask 35 01/07/25 21:30 98.4 124 33 106/75 (85) 93 98.4 01/07/25 21:00 178 138/94 01/07/25 20:41 135 01/07/25 20:35 32 93 Bi-Pap+ 35 35 01/07/25 20:19 89 Room Air* 20 100 Bi-Pap+ 100 01/07/25 20:19 98.4 145 38 138/73 (94) 89 98.4 01/07/25 20:00 177 01/07/25 19:54 164 154/65 Facial BiPAP Mask 50 01/07/25 19:46 135 01/07/25 19:38 98.0 158 34 154/65 (94) 97 98.0 Lab Test 01/07/25 23:17 01/07/25 23:02 01/07/25 22:03 01/07/25 21:04 Range/Units Troponin I High Sensitivity 18 15 </=54 ng/L POC Glucose 177 H 70-106 mg/dl Lactic Acid Level 2.7 *H 0.4-2.0 mmol/L Test 01/07/25 20:47 01/07/25 20:32 01/07/25 20:13 Range/Units Urine Color Light-yellow Yellow Urine Clarity Clear Clear Urine pH 6.0 5.0-9.0 Urine Specific [place] 1.010 1.001-1.035 Urine Protein Trace H Negative Urine Ketones 3+ H Negative Urine Blood Negative Negative /uL Urine Nitrite Negative Negative Urine Bilirubin Negative Negative Urine Urobilinogen Normal Negative mg/dL Urine Leukocyte Esterase Negative Negative /uL Urine RBC 1 0 - 3 /hpf Urine Microscopic WBC < 1 0-3 /HPF Urine Squamous Epithelial Cells Few <5 /hpf Urine Bacteria None seen None Seen /hpf Urine Glucose Normal Normal mg/dL Blood Gas Specimen Type Arterial Blood Gas Sample Site Right radial Blood Gas Patient Temperature 37.0 Arterial Blood Date Drawn [id number] Arterial Blood pH 7.399 7.350-7.450 Arterial Blood Partial Pressure CO2 31.9 L 35.0-48.0 mmHg Arterial Blood Partial Pressure O2 72.4 L 83.0-108.0 mmHg Arterial Blood HCO3 19.3 L 21.0-28.0 mmol/L Arterial Blood Oxygen Saturation 93.8 L 94.0-98.0 % Arterial Blood Base Excess -4.6 L -2.0-3.0 mmol/L Arterial Blood Oxyhemoglobin 91.5 L 94.0-98.0 % Arterial Blood Carboxyhemoglobin 2.2 H 0.5-1.5 % Arterial Blood Methemoglobin 0.3 0.0-1.5 % Ifeanyi Test Modified Blood Gas Total Hemoglobin 12.60 L 13.5-17.5 g/dL Blood Gas Set Respiration Rate 14.0 Blood Gas Modality Mask - bipap Blood Gas Spontaneous Rate 32 FiO2 % 35.0 Blood Gas EPAP 5 Blood Gas IPAP 12 White Blood Count 12.2 H 4.4-10.8 10^3/uL Red Blood Count 4.67 4.5-5.90 10^6/uL Hemoglobin 12.7 L 13.5-17.5 g/dL Hematocrit 39.9 L 41.0-53.0 % Mean Corpuscular Volume 85.5 80.0-100.0 fL Mean Corpuscular Hemoglobin 27.2 L 28.0-32.0 pg Mean Corpuscular Hemoglobin Concent 31.9 L 32.0-36.0 g/dL Red Cell Distribution Width 18.0 H 11.8-14.3 % Platelet Count 370 140-450 10^3/uL Mean Platelet Volume 7.2 6.9-10.8 fL Neutrophils (%) (Auto) 86.9 H 37.0-80.0 % Lymphocytes (%) (Auto) 6.4 L 10.0-50.0 % Monocytes (%) (Auto) 6.4 0.0-12.0 % Eosinophils (%) (Auto) 0.0 0.0-7.0 % Basophils (%) (Auto) 0.3 0.0-2.0 % Neutrophils # (Auto) 10.6 H 1.6-8.6 10 ^3/uL Lymphocytes # (Auto) 0.8 0.4-5.4 10 ^3/uL Monocytes # (Auto) 0.8 0-1.3 10 ^3/uL Eosinophils # (Auto) 0 0-0.8 10 ^3/uL Basophils # (Auto) 0 0-0.2 10 ^3/uL Nucleated Red Blood Cells 0.1 % Sodium Level 140 136-145 mmol/L Potassium Level 3.0 L 3.5-5.1 mmol/L Chloride Level 98 98-107 mmol/L Carbon Dioxide Level 24 20-31 mmol/L Anion Gap 18 H 5-15 Blood Urea Nitrogen 6 L 9-23 mg/dL Creatinine 0.70 0.700-1.30 mg/dL Glomerular Filtration Rate Calc 93 >90 mL/min BUN/Creatinine Ratio 8.6 L 10.0-20.0 Serum Glucose 152 H 74-106 mg/dL Lactic Acid Level 2.4 *H 0.4-2.0 mmol/L Calcium Level 10.0 8.7-10.4 mg/dL Magnesium Level 1.6 1.6-2.6 mg/dL Troponin I High Sensitivity 13 </=54 ng/L B-Type Natriuretic Peptide 137.22 0-100 pg/mL Current Medications Medications (Trade) Dose Ordered Sig/Milena Route Start Time Stop Time Status Last Admin Sodium Chloride 1,000 ml @ 1,000 mls/hr Q1H ONCE IV 01/07/25 20:00 01/07/25 20:59 DC 01/07/25 20:15 Albuterol (Ventolin Medneb) 5 mg ONCE ONCE NEB 01/07/25 20:00 01/07/25 20:37 DC 01/07/25 20:45 Ipratropium Mccurtain (Atrovent Medneb) 0.5 mg ONCE ONCE NEB 01/07/25 20:00 01/07/25 20:37 DC 01/07/25 20:45 Methylprednisolone Sodium Succinate (Solu Medrol) 62.5 mg ONCE ONCE IV 01/07/25 20:00 01/07/25 20:37 DC 01/07/25 20:59 Metoprolol Tartrate (Lopressor) 5 mg ONCE ONCE IV 01/07/25 21:00 01/07/25 21:05 DC 01/07/25 21:00 Potassium Chloride 100 ml @ 50 mls/hr Q2H IV 01/07/25 21:45 01/08/25 03:44 01/07/25 23:21 Piperacillin Sod/ Tazobactam Sod 100 ml @ 100 mls/hr ONCE ONCE IV 01/07/25 21:45 01/07/25 22:44 DC 01/07/25 22:21 Sodium Chloride 500 ml @ 500 mls/hr Q1H ONCE IV 01/07/25 22:00 01/07/25 22:59 DC 01/07/25 22:31 Magnesium Sulfate/ Dextrose 100 ml @ 100 mls/hr ONCE ONCE IV 01/07/25 22:30 01/07/25 23:29 DC 01/07/25 23:19 ED year old male patient was brought in via EMS with a chief complaint of worsening shortness of breath in route was given breathing treatments and was put on nasal cannula at 6 L which did not help with the shortness of breath following which he was put on CPAP. On arrival patient was started on BiPAP at 12/5, initial lab investigations revealed elevated white count with left shift, elevated lactic acid, chest x-ray showing possible infectious etiology, pulmonar y edema following which the patient was given 1.5 L of fluid judiciously given mild pulmonary congestion seen on the x-ray and on physical examination. Patient was in atrial fibrillation with a RVR with a heart rate more than 150 and was given 5 mg of IV metoprolol which controlled his heart rate. Patient has a history of atrial fibrillation with a prescribed Eliquis 5 mg b.i.d. but daughter reports patient might not have been compliant with the medication. Patient is being admitted for further management of sepsis, pneumonia, COPD exacerbation. Time of 1ST Reevaluation: 20:38 Reevaluation 1ST: Unchanged Time of 2ND Reevaluation: 21:34 Reevaluation 2ND: Improved Patient Education/Counseling: Diagnosis, Treatment Family Education/Counseling: Diagnosis, Treatment SEPSIS Sepsis Screen Date sepsis recognized/suspect: Jan 07, 2025 Time Sepsis recognized/suspect: 2018 Recent Procedure: No On Antibiotic Therapy: No Respiratory Rate >20: Yes Heart Rate >90: Yes Temp<36 C (96.8 F) or >38.3 C: No SBP <90 or MAP <65 mmHG: No New Acute Mental Status Change: No Is the patient on CPAP, BIPAP,: No Physician Orders Electrocardigram (01/07/25 19:50) Chest Portable (01/07/25 19:57) Electrocardigram (01/07/25 20:57) Electrocardigram (01/07/25 22:57) Blood Culture (01/07/25 19:58) BIPAP (01/07/25 20:24) Abg W/ Co-Ox (01/07/25 20:24) Amiodarone 360mg/200ml Premix (Nexterone (01/07/25 21:00) Potassium Chl 20meq/100ml (01/07/25 21:45) Vancomycin Per Pharmacy (01/07/25 21:45) Rapid Influenza A&B (01/07/25 21:31) Covid19 Antigen Kimmy (01/07/25 ) Mrsa Screen (01/07/25 21:31) Vital Signs Date Time Temp Pulse Resp B/P (MAP) Pulse Ox O2 Delivery O2 Flow Rate FiO2 01/07/25 21:46 101 104/61 Facial BiPAP Mask 35 01/07/25 21:30 98.4 124 33 106/75 (85) 93 98.4 01/07/25 21:00 178 138/94 01/07/25 20:41 135 01/07/25 20:35 32 93 Bi-Pap+ 35 35 01/07/25 20:19 89 Room Air* 20 100 Bi-Pap+ 100 01/07/25 20:19 98.4 145 38 138/73 (94) 89 98.4 01/07/25 20:00 177 01/07/25 19:54 164 154/65 Facial BiPAP Mask 50 01/07/25 19:46 135 01/07/25 19:38 98.0 158 34 154/65 (94) 97 98.0 Laboratory Tests Test 01/07/25 20:13 01/07/25 22:03 Lactic Acid Level 2.4 mmol/L (0.4-2.0) *H 2.7 mmol/L (0.4-2.0) *H White Blood Count 12.2 10^3/uL (4.4-10.8) H Medications Medications Dose Ordered Sig/Milena Route Start Time Stop Time Status Last Admin Dose Admin Albuterol 5 mg ONCE ONCE NEB 01/07/25 20:00 01/07/25 20:37 DC 01/07/25 20:45 Ipratropium [place] 0.5 mg ONCE ONCE NEB 01/07/25 20:00 01/07/25 20:37 DC 01/07/25 20:45 Magnesium Sulfate/ Dextrose 100 ml @ 100 mls/hr ONCE ONCE IV 01/07/25 22:30 01/07/25 23:29 DC 01/07/25 23:19 Methylprednisolone Sodium Succinate 62.5 mg ONCE ONCE IV 01/07/25 20:00 01/07/25 20:37 DC 01/07/25 20:59 Metoprolol Tartrate 5 mg ONCE ONCE IV 01/07/25 21:00 01/07/25 21:05 DC 01/07/25 21:00 Piperacillin Sod/ Tazobactam Sod 100 ml @ 100 mls/hr ONCE ONCE IV 01/07/25 21:45 01/07/25 22:44 DC 01/07/25 22:21 Potassium Chloride 100 ml @ 50 mls/hr Q2H IV 01/07/25 21:45 01/08/25 03:44 01/07/25 23:21 Sodium Chloride 500 ml @ 500 mls/hr Q1H ONCE IV 01/07/25 22:00 01/07/25 22:59 DC 01/07/25 22:31 Sodium Chloride 1,000 ml @ 1,000 mls/hr Q1H ONCE IV 01/07/25 20:00 01/07/25 20:59 DC 01/07/25 20:15 Departure 1 Departure Time of Disposition: 22:02 Impression: Primary Impression: Acute on chronic hypoxic respiratory failure Additional Impressions: COPD exacerbation Pneumonia Qualified Codes: J18.9 - Pneumonia, unspecified organism Sepsis Qualified Codes: A41.9 - Sepsis, unspecified organism; R65.20 - Severe sepsis without septic shock; G93.41 - Metabolic encephalopathy Atrial fibrillation with RVR Disposition: ADMITTED INPATIENT Condition: Serious Critical Care Note Critical Care Time?: Yes (90 min-critical care time only) Critical care comment: Acute shortness of breath Authorized and Performed by: Arabella Ugalde MD Total critical care time: Approximately 41 minutes Due to a high probability of clinically significant, life threatening deterioration, the patient required my highest level of preparedness to intervene emergently and I personally spent this critical care time directly and personally managing the patient. This critical care time included obtaining a history; examining the patient; pulse oximetry; ordering and review of studies; arranging urgent treatment with development of a management plan; evaluation of patient's response to treatment; frequent reassessment; and, discussions with other providers. This critical care time was performed to assess and manage the high probability of imminent, life-threatening deterioration that could result in multi-organ failure. It was exclusive of separately billable procedures and treating other patients and teaching time. Please see my other sections and the rest of the note for further information on patient assessment and treatment. Stability Stability form required: No Heart Score Heart Score: Heart Score Response (Comments) Value History Slightly Suspicious 0 EKG N/A 0 Age >65 2 Risk Factors >3 or Hx ASHD 2 Troponin Normal limit 0 Total 4 VU VERDUGO RESIDENT Jan 07, 2025 20:41 ARABELLA UGALDE MD Jan 08, 2025 01:22
--- NOTE | 2025-01-07 20:42 | DVH ---
EXAM: XY CHEST PORTABLE CLINICAL HISTORY: sob TECHNIQUE: Single AP view of the chest WID: COMPARISON: XY CHEST XRAY 1 VIEW on DOS: 04/12/24 FINDINGS: Lines and tubes: None Chest: The heart size and pulmonary vasculature is within normal limits. Small bilateral pleural effusions. Diffuse interstitial opacities of the lungs. Hyperexpansion of the lungs. No pneumothorax. The osseous structures are grossly intact. IMPRESSION: Diffuse interstitial opacities of the lungs. DDX includes pulmonary edema, atypical infection, fibro sis/scarring. Small bilateral pleural effusions.
[2025-01-07] MEDS: IPRATROPIUM BROM 0.5 MG/2.5ML INH SOL NEB ONE (20:45)
[2025-01-07] MEDS: ALBUTEROL SULF 2.5 MG/0.5ML(0.5%) NEB SOLN NEB ONE (20:45)
[2025-01-07] MEDS: methylPREDNISolone SOD SUCC 125 MG/2 ML VL IV ONE (20:59)
[2025-01-07] MEDS: METOPROLOL TARTRATE 1MG/1ML-5ML VIAL IV ONE ×2 (21:00→21:24)
[2025-01-07 21:18] LABS: Blood Urea Nitrogen 6 mg/dL (9-23); Glucose 152 mg/dL (74-106)
[2025-01-07 21:21] LABS: Urine Protein, UAD TRACE (Negative)
[2025-01-07 21:21] LABS: Lactic Acid w/Reflex 2.4 mmol/L (0.4-2.0)
[2025-01-07] MEDS ORDERED: VANCOMYCIN PER PHARMACY 0 MG IV SCH (21:45)
[2025-01-07] MEDS: AMIODARONE 360mg/200mL PREMIX 200 ML IV ONE (22:07)
[2025-01-07] MEDS: AMIODARONE BOLUS KIT 100 ML IV ONE (22:07)
[2025-01-07] MEDS: PIPERACILLIN-TAZOB 3.375GM 100 ML IV ONE (22:21)
[2025-01-07] MEDS: SODIUM CHLORIDE 0.9% 500 ML IV ONE (22:31)
[2025-01-07] MEDS: MAGNESIUM SULFATE 1GM/100ML 100 ML IV ONE (23:19)
[2025-01-08] VITALS (14 sets, daily range): BP systolic 130–170; BP diastolic 64–76; PULSE 74–155; RESP 16–31; TEMP 97.8–98.3; O2SAT 92–99
[2025-01-08] MEDS ORDERED: MORPHINE SULFATE INJ 2 MG/ml SYRG IV PRN
[2025-01-08] MEDS ORDERED: NITROGLYCERIN 0.4 MG SL TAB SL PRN
[2025-01-08] MEDS ORDERED: ACETAMINOPHEN 325 MG TAB PO PRN
[2025-01-08] MEDS ORDERED: DEXTROSE (50%) 50ML SYRG IV PRN
[2025-01-08] MEDS ORDERED: VANCOMYCIN PER PHARMACY 0 MG IV SCH
[2025-01-08] MEDS: VANCOMYCIN 1GM/250ML KIT 250 ML IV ONE (01:30)
[2025-01-08] MEDS: VANCOMYCIN 1GM/200ML PM 200 ML IV ONE (01:31)
[2025-01-08 02:29] LABS: COVID19 ANTIGEN SOFIA FIA NEGATIVE (NEGATIVE)
--- NOTE | 2025-01-08 04:09 | DVHHP2 ---
History of Present Illness Reason for Visit: Shortness for breath History of Present Illness 79-year-old male presents for evaluation of shortness for breath. Patient presents with a one-week history of worsening shortness for breath with associated cough and yellow phlegm. On arrival patient was noted to be saturating in the 80s. He also has a history of congestive heart failure and COPD and uses oxygen at home. Past Medical History Diabetes mellitus, dementia, hypertension, AFib, COPD Family History Noncontributory Smoke: Quit ALCOHOL: none Drugs: None Lives: with Family Review of Systems Review of Systems Review of systems are currently negative otherwise addressed in HPI. Allergies: Coded Allergies: NO KNOWN ALLERGIES (Unverified , 04/02/24) Medications Current Medications Medications Dose Ordered Sig/Milena Route Start Time Stop Time Status Last Admin Dose Admin Vancomycin HCl 0 ml @ 0 mls/hr UD IV 01/07/25 21:45 UNV Piperacillin Sod/ Tazobactam Sod 100 ml @ 25 mls/hr Q8HR IV 01/08/25 06:00 Vancomycin HCl 0 ml @ 0 mls/hr UD IV 01/08/25 00:00 UNV Diagnostic Test (Pha) 1 strip ACHS 01/08/25 07:00 Insulin Human Regular ACHS SC 01/08/25 07:00 Dextrose 50 ml UD PRN IV 01/08/25 00:00 Ondansetron HCl 4 mg Q4HP PRN IV 01/08/25 00:00 Enoxaparin Sodium 40 mg DAILY SC 01/08/25 10:00 Acetaminophen 650 mg Q6HP PRN PO 01/08/25 00:00 Nitroglycerin 0.4 mg Q5MINP PRN SL 01/08/25 00:00 Morphine Sulfate 2 mg Q30M PRN IV 01/08/25 00:00 Acetaminophen/ Hydrocodone Bitart 1 tab Q8HP PRN PO 01/08/25 03:45 UNV Exam Vital Signs Vital Signs Date Time Temp Pulse Resp B/P (MAP) Pulse Ox O2 Delivery O2 Flow Rate FiO2 01/08/25 02:23 93 31 154/69 94 35.0 01/08/25 02:16 Bi-pap/CPAP 01/08/25 02:16 35 01/08/25 02:00 98.0 98.0 Exam Gen: 79-year-old male in moderate distress Skin: Warm, dry, normal color and texture, no rash. HEENT: Normocephalic atraumatic, mucous membranes moist and pink. Neck: Cervical and supraclavicular nodes normal without enlargement, trachea is midline, thyroid gland is normal without masses. Pulmonary: Diminished breath sounds bilaterally Cardiac: Regular rate and rhythm. No murmur Abdomen: Soft, nontender, nondistended, bowel sounds present all 4 quadrants, no guarding, no rigidity, no organomegaly. Extremities: No cyanosis, clubbing, no edema Neuro: Cranial nerves II through XII grossly intact, normal affect and speech, no focal motor deficits. Labs/Xrays ORDERING PHYSICIAN: ARABELLA MONTENEGRO MD PROCEDURE(s): CXRP - CHEST PORTABLE REASON: sob ORDER NUMBER(s): [id number], ACCESSION NUMBER(s): [id number] EXAM: XY CHEST PORTABLE CLINICAL HISTORY: sob TECHNIQUE: Single AP view of the chest WID: COMPARISON: XY CHEST XRAY 1 VIEW on DOS: 04/12/24 FINDINGS: Lines and tubes: None Chest: The heart size and pulmonary vasculature is within normal limits. Small bilateral pleural effusions. Diffuse interstitial opacities of the lungs. Hyperexpansion of the lungs. No pneumothorax. The osseous structures are grossly intact. IMPRESSION: Diffuse interstitial opacities of the lungs. DDX includes pulmonary edema, atypical infection, fibrosis/scarring. Small bilateral pleural effusions. Labs Test 01/08/25 03:30 01/08/25 01:10 01/07/25 23:17 01/07/25 23:02 Range/Units Influenza Type A Antigen Negative Negative Influenza Type B Antigen Negative Negative SARS-CoV-2 Antigen (Rapid) Negative NEGATIVE Troponin I High Sensitivity 18 </=54 ng/L POC Glucose 177 H 70-106 mg/dl Test 01/07/25 22:03 01/07/25 20:47 01/07/25 20:32 01/07/25 20:13 Range/Units Lactic Acid Level 2.7 *H 0.4-2.0 mmol/L Urine Color Light-yellow Yellow Urine Clarity Clear Clear Urine pH 6.0 5.0-9.0 Urine Specific [place] 1.010 1.001-1.035 Urine Protein Trace H Negative Urine Ketones 3+ H Negative Urine Blood Negative Negative /uL Urine Nitrite Negative Negative Urine Bilirubin Negative Negative Urine Urobilinogen Normal Negative mg/dL Urine Leukocyte Esterase Negative Negative /uL Urine RBC 1 0 - 3 /hpf Urine Microscopic WBC < 1 0-3 /HPF Urine Squamous Epithelial Cells Few <5 /hpf Urine Bacteria None seen None Seen /hpf Urine Glucose Normal Normal mg/dL Blood Gas Specimen Type Arterial Blood Gas Sample Site Right radial Blood Gas Patient Temperature 37.0 Arterial Blood Date Drawn [id number] Arterial Blood pH 7.399 7.350-7.450 Arterial Blood Partial Pressure CO2 31.9 L 35.0-48.0 mmHg Arterial Blood Partial Pressure O2 72.4 L 83.0-108.0 mmHg Arterial Blood HCO3 19.3 L 21.0-28.0 mmol/L Arterial Blood Oxygen Saturation 93.8 L 94.0-98.0 % Arterial Blood Base Excess -4.6 L -2.0-3.0 mmol/L Arterial Blood Oxyhemoglobin 91.5 L 94.0-98.0 % Arterial Blood Carboxyhemoglobin 2.2 H 0.5-1.5 % Arterial Blood Methemoglobin 0.3 0.0-1.5 % Ifeanyi Test Modified Blood Gas Total Hemoglobin 12.60 L 13.5-17.5 g/dL Blood Gas Set Respiration Rate 14.0 Blood Gas Modality Mask - bipap Blood Gas Spontaneous Rate 32 FiO2 % 35.0 Blood Gas EPAP 5 Blood Gas IPAP 12 Eosinophils (%) (Auto) 0.0 0.0-7.0 % Eosinophils # (Auto) 0 0-0.8 10 ^3/uL Basophils # (Auto) 0 0-0.2 10 ^3/uL Nucleated Red Blood Cells 0.1 % Magnesium Level 1.6 1.6-2.6 mg/dL B-Type Natriuretic Peptide 137.22 0-100 pg/mL Assessment/Plan Assessment/Plan Assessment Multifocal pneumonia Sepsis Acute hypoxic respiratory failure Dementia Diabetes mellitus AFib COPD Electrolyte imbalance Plan Admit the patient to D OU to the hospitalist Zosyn/vancomycin Med nebs Resume home medications Continue treatment per orders. Plan discussed with: Patient My Orders Orders - GLORIA CALDERON AGACNP Procedure Category Date Status Time Piperacillin-Tazob PHA 01/08/25 In Process 3.375gm (Zosyn 3.375g 06:00 Vancomycin Per PHA 01/08/25 Pending Pharmacy 00:00 Glucose Blood PHA 01/08/25 In Process (Accu-Chek Comfort 07:00 Insulin R (Human) PHA 01/08/25 In Process (Insulin R) 07:00 Dextrose 50% Syringe PHA 01/08/25 In Process 00:00 Admit ADMIT 01/07/25 Transmitted 23:52 Ondansetron Hcl PHA 01/08/25 In Process (Zofran) 00:00 Enoxaparin Sodium PHA 01/08/25 In Process (Lovenox) 10:00 Complete Blood Count LAB 01/08/25 In Process 04:00 Comprehensive LAB 01/08/25 In Process Metabolic Panel 04:00 Cardiac DIET 01/08/25 Transmitted Diet-2gna,Lofat,Lochol Breakfast Condition: Serious VANNESA 01/07/25 In Process 23:52 Acetaminophen Tablet PHA 01/08/25 In Process (Tylenol Tablet) 00:00 Bedrest With Bathroom VANNESA 01/07/25 In Process Privileg 23:52 Nitroglycerin PHA 01/08/25 In Process Sublingual (Ntrostat 00:00 Morphine Sulfate PHA 01/08/25 In Process Injection 00:00 Stat Ekg For Chest VANNESA 01/07/25 In Process Pain 23:52 Notify Md Of Changes VANNESA 01/07/25 In Process From Base 23:52 Audiovisual Equipment Operator For VANNESA 01/07/25 In Process 24 Hours 23:52 Emergency Dysrhythmia VANNESA 01/07/25 In Process Protocol 23:52 Rhythm Strips Once VANNESA 01/07/25 In Process Every Shift 23:52 Oxygen By Nasal RT 01/07/25 Transmitted Cannula 23:52 Hydrocodone-Acet PHA 01/08/25 Logged 7.5/325mg Tab ([place] 03:45 Date of Service: Jan 07, 2025 Billing Provider: GLORIA CALDERON Common Visit Codes: [id number] CARE 30-74 MIN GLORIA CALDERON Jan 08, 2025 04:09
[2025-01-08 04:13] LABS: Hematocrit 37.6 % (41.0-53.0); Hemoglobin 12.1 g/dL (13.5-17.5); Mean Corpuscular Hemoglobin 27.3 pg (28.0-32.0); Mean Corpuscular Volume 84.8 fL (80.0-100.0); Nucleated Red Blood Cells % 0.0 %
[2025-01-08 04:36] LABS: Albumin 4.2 g/dL (3.2-4.8); Alkaline Phosphatase 69 U/L (46-116); Anion Gap 14 (5-15); BUN/Creatinine Ratio 8.0 (10.0-20.0); Calcium 9.4 mg/dL (8.7-10.4); Carbon Dioxide 24 mmol/L (20-31); Chloride 101 mmol/L (98-107); Sodium 139 mmol/L (136-145); Total Protein 8.1 g/dL (5.7-8.2)
[2025-01-08 04:37] LABS: Bilirubin, Total 0.6 mg/dL (0.2-1.0)
[2025-01-08 04:48] LABS: Alanine Aminotransferase < 9 U/L (7-40); Blood Urea Nitrogen 6 mg/dL (9-23); Glucose 248 mg/dL (74-106); Potassium 3.2 mmol/L (3.5-5.1)
[2025-01-08] MEDS: PIPERACILLIN-TAZOB 3.375GM 100 ML IV SCH (05:34)
[2025-01-08] MEDS: IPRATROPIUM BROM 0.5 MG/2.5ML INH SOL NEB SCH (06:13)
[2025-01-08] MEDS: ALBUTEROL SULF 2.5 MG/0.5ML(0.5%) NEB SOLN NEB SCH (06:14)
[2025-01-08] MEDS: InsuLIN REG 1unit/0.01ml Soln (100units/ml) SC SCH (06:37)
[2025-01-08] MEDS: ACCU-CHEK COMFORT CURVE STRIP VI SCH (06:37)
[2025-01-08] MEDS: HYDROcodone-ACET 7.5/325MG TAB PO PRN (06:41)
[2025-01-08] MEDS: POTASSIUM EFFERVESENT TAB 25 MEQ PO ONE (09:18)
[2025-01-08] MEDS: LISINOPRIL 5 MG TAB PO SCH (10:00)
[2025-01-08] MEDS: ENOXAPARIN SOD 40 MG/0.4 ML SYRINGE SC SCH (10:23)
[2025-01-08] MEDS: ONDANSETRON HCL 4 MG/2 ML VIAL IV PRN (10:23)
[2025-01-08] MEDS: methylPREDNISolone SOD SUCC 40 MG/ML VL IV SCH (10:23)
--- NOTE | 2025-01-08 12:31 | DVHPNRES ---
Progress Note Date Seen: Jan 08, 2025 Resident Creating Document: VENECIA FENTON RESIDENT Medical Necessity Reason Pt with a Central, PICC or Fol: No Subjective Review of Systems 79-year-old male with past medical history of hypertension, diabetes mellitus, chronic back pain, dementia, atrial fibrillation, COPD and diastolic dysfunction, he uses home oxygen on 2 L. He presented with shortness of breath. Patient presents with a one-week history of worsening shortness for breath with associated cough and sputum. Reports loss of appetite. Sputum is productive, yellow in color. On arrival patient was noted to be saturating in the 80s. Patient presented with tachycardia, tachypnea, hypertension, hyperglycemia. Negative history of fever, chills, burning micturition, chest pain, orthopnea, recent sick contact. He was admitted in May 2024 for pneumonia for which he received antibiotics. Chest x-ray shows bilateral diffuse pulmonary infiltrate. He was started on IV fluids and vancomycin and Zosyn. Blood culture sent. He had hypokalemia and was treated with IV potassium chloride. ROS: Constitutional: Denies fever and chills. HEENT: Denies changes in vision and hearing. Respiratory: Shortness of breath and cough Cardiovascular: Denies chest discomfort or palpitations GI: Denies abdominal pain, nausea, vomiting and diarrhea. : Denies dysuria and urinary frequency. Musculoskeletal: Pain in left hip. Denie any other myalgias and joint pain Skin: Denies rash and pruritus. Neurological: Denies dizziness, headache, vision or hearing problems Objective vital signs Vital Sign Date Time Temp Pulse Resp B/P (MAP) Pulse Ox O2 Delivery O2 Flow Rate FiO2 01/08/25 11:56 85 16 97 01/08/25 11:15 160/63 (95) 01/08/25 08:15 Nasal Cannula* 4 36 01/08/25 08:15 98.5 98.5 Total Intake and Output 01/07/25 01/07/25 01/08/25 15:00 23:00 07:00 Intake Total 1000 ml 1150 ml Balance 1000 ml 1150 ml medications Current Medications Medications Dose Ordered Sig/Milena Route Start Time Stop Time Status Last Admin Dose Admin Vancomycin HCl 0 ml @ 0 mls/hr UD IV 01/07/25 21:45 UNV Piperacillin Sod/ Tazobactam Sod 100 ml @ 25 mls/hr Q8HR IV 01/08/25 06:00 01/08/25 05:34 25 MLS/HR Vancomycin HCl 0 ml @ 0 mls/hr UD IV 01/08/25 00:00 Diagnostic Test (Pha) 1 strip ACHS 01/08/25 07:00 01/08/25 06:37 1 STRIP Insulin Human Regular ACHS SC 01/08/25 07:00 01/08/25 06:37 4 UNITS Dextrose 50 ml UD PRN IV 01/08/25 00:00 Ondansetron HCl 4 mg Q4HP PRN IV 01/08/25 00:00 01/08/25 10:23 4 MG Enoxaparin Sodium 40 mg DAILY SC 01/08/25 10:00 01/08/25 10:23 40 MG Acetaminophen 650 mg Q6HP PRN PO 01/08/25 00:00 Nitroglycerin 0.4 mg Q5MINP PRN SL 01/08/25 00:00 Morphine Sulfate 2 mg Q30M PRN IV 01/08/25 00:00 Acetaminophen/ Hydrocodone Bitart 1 tab Q8HP PRN PO 01/08/25 03:45 01/08/25 06:41 1 TAB Albuterol 2.5 mg Q6HR NEB 01/08/25 06:00 01/08/25 11:46 2.5 MG Ipratropium [place] 0.5 mg Q6HR NEB 01/08/25 06:00 01/08/25 11:46 0.5 MG Lisinopril 10 mg DAILY PO 01/08/25 10:00 Methylprednisolone Sodium Succinate 40 mg BID IV 01/08/25 10:00 01/08/25 10:23 40 MG Vancomycin HCl 250 ml @ 200 mls/hr Q16H IV 01/08/25 18:00 Examination Physical examination: General: Patient looks frail. Oriented in person, place and time. Patient following commands. HEENT: Normocephalic, atraumatic, moist mucous membranes. Respiratory/pulmonary: Reduced breath sounds. Lungs clear bilaterally, no associated crackles or wheezes. Cardiovascular: Normal heart sounds S1 and S2 with no associated murmurs Abdomen: Abdomen nondistended, there is no pain to palpation in any of the abdominal quadrants, no palpable masses. Extremities: There is no peripheral edema present at the lower extremities. Skin: No rashes or pruritus, there is no sacral edema present at this time. Neurological: Intact cranial nerves with no focal neurologic deficits laboratory and microbiology Laboratory Tests 01/08/25 03:30 Test 01/08/25 03:30 Range/Units Serum Glucose 248 H 74-106 mg/dL Problem List/Assessment/Plan Problem List/Assessment/Plan 1. Sepsis due to pneumonia, Gram-negative, Gram positive, possibly 2. Acute exacerbation of COPD 3. Acute on chronic hypoxic respiratory failure - Chest x-ray shows diffuse pulmonary interstitial opacities and pleural effusions bilaterally - Currently on IV vancomycin and Zosyn. Switch vancomycin to IV doxycycline 100 mg b.i.d.. to cover atypical as well - Ordered sputum culture - Start methylprednisolone 40 mg IV once daily 4. Hypokalemia 5. Severely Malnourished - Administered potassium chloride 50 mEq. Potassium WNL now. 6. Leukocytosis 7. Neutrophil 8. Lactic acidosis 9. Hypoglycemia Goals of care discussed with the patient at bedside for > 35 minutes. Full code Plan discussed with Dr. Lopes Plan discussed with: Patient VENECIA FENTON RESIDENT Jan 08, 2025 12:31
[2025-01-08] MEDS: DOXYCYCLINE 100MG/100ML 100 ML IV SCH (13:45)
[2025-01-08] MEDS: hydrALAZINE HCL 20 MG/ML VL IV PRN (13:45)
[2025-01-08] MEDS: OXYCODONE W/ ACETAMINOPHEN 5/325MG TABLET PO PRN (13:46)
[2025-01-08] MEDS: D5W/SOD CHL 0.45% 1,000 ML IV SCH (16:47)
[2025-01-08] MEDS ORDERED: VANCOMYCIN 1GM/250ML KIT 250 ML IV SCH (18:00)
[2025-01-08] MEDS: AMIODARONE BOLUS KIT 100 ML IV ONE (22:05)
[2025-01-08] MEDS: PREGABALIN CAPSULE 75 MG CAP PO SCH (22:22)
[2025-01-08] MEDS: PANTOPRAZOLE 40 MG/10 ML VIAL INJ IV SCH (22:22)
[2025-01-08] MEDS: PREGABALIN 25 MG CAP PO SCH (22:23)
[2025-01-08] MEDS: AMIODARONE 360mg/200mL PREMIX 200 ML IV ONE (22:30)
[2025-01-09] VITALS (13 sets, daily range): BP systolic 109–179; BP diastolic 72–86; PULSE 84–131; RESP 16–21; TEMP 97.4–99.1; O2SAT 93–100
[2025-01-09] MEDS: PIPERACILLIN-TAZOB 3.375GM 100 ML IV SCH (01:26)
[2025-01-09] MEDS: AMIODARONE 360mg/200mL PREMIX 200 ML IV SCH (03:11)
--- NOTE | 2025-01-09 06:39 | ECG ---
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
[2025-01-09 06:52] LABS: Chloride 99 mmol/L (98-107); Sodium 140 mmol/L (136-145)
[2025-01-09 06:53] LABS: Anion Gap 12 (5-15); Carbon Dioxide 29 mmol/L (20-31)
[2025-01-09 06:54] LABS: Calcium 9.2 mg/dL (8.7-10.4)
[2025-01-09 06:58] LABS: BUN/Creatinine Ratio 16.3 (10.0-20.0)
[2025-01-09 06:59] LABS: Hematocrit 38.7 % (41.0-53.0); Hemoglobin 12.4 g/dL (13.5-17.5); Mean Corpuscular Hemoglobin 27.0 pg (28.0-32.0); Mean Corpuscular Volume 84.2 fL (80.0-100.0); Nucleated Red Blood Cells % 0.1 %
[2025-01-09 07:06] LABS: Blood Urea Nitrogen 8 mg/dL (9-23); Glucose 157 mg/dL (74-106); Potassium 3.4 mmol/L (3.5-5.1)
[2025-01-09] MEDS: PREGABALIN CAPSULE 75 MG CAP PO SCH (10:00)
[2025-01-09] MEDS: methylPREDNISolone SOD SUCC 40 MG/ML VL IV SCH (10:44)
[2025-01-09 11:41] LABS: INR 1.05 (0.9-1.15); Partial Thromboplastin Time 28.6 SEC (24.5-34.5); Prothrombin Time 11.1 sec (9.3-11.8)
--- NOTE | 2025-01-09 11:55 | DVHINCON2 ---
Date of service: Jan 08, 2025 Referring Physician Reason for Consultation Abdominal pain nausea or vomiting weight loss weakness History of Present Illness This 79-year-old male has been having problems with abdominal pain nausea and vomiting patient has history of hypertension and diabetes congestive heart failure patient has been having nausea vomiting any through quite a bit of vomitus with coffee-ground emesis also and hence the reason for the GI consult. Patient is also hypoxic apparently also has lost some weight according to the family. And not able to eat properly and he has also has got dementia and diabetes. Because of this the reason for the GI consult Past Medical History COPD dementia diabetes hypertension Past Surgical History Noncontributory Family History: Diabetes mellitus G8 MOTHER G8 FATHER Family History Noncontributory Social History Denies smoking or drinking Allergies: Coded Allergies: NO KNOWN ALLERGIES (Unverified , 04/02/24) Home Meds Reported Medications Pregabalin (Pregabalin) 200 Mg Cap, 1 CAP PO BIDPRN PRN for neuropathy 04/03/24 Atorvastatin Calcium (ATORVASTATIN CALCIUM) 20 Mg Tab, 1 TAB PO DAILY 04/03/24 Glipizide (Glipizide) 5 Mg Tab, 1 TAB PO DAILY 04/03/24 Apixaban Base (ELIQUIS) 5 Mg Tab, 5 MG PO BID, TAB 04/03/24 Current Medications Current Medications Medications (Trade) Dose Ordered Sig/Milena Route PRN Reason Start Time Stop Time Status Last Admin Vancomycin HCl 250 ml @ 200 mls/hr Q16H IV 01/08/25 18:00 01/08/25 12:35 DC Methylprednisolone Sodium Succinate (Solu Medrol) 40 mg DAILY IV 01/09/25 10:00 01/09/25 10:44 Doxycycline Hyclate 100 ml @ 50 mls/hr Q12HR IV 01/08/25 12:45 01/09/25 10:45 Dextrose/Sodium Chloride 1,000 ml @ 75 mls/hr [id number] IV 01/08/25 12:45 01/08/25 16:47 Oxycodone/ Acetaminophen (Percocet 5/ 325MG Tablet) 1 tab Q6HP PRN PO MODERATE PAIN (4-6 PAIN SCALE) 01/08/25 12:45 01/08/25 20:28 Pregabalin (Lyrica Capsule) 50 mg BID PO 01/08/25 22:00 01/09/25 09:52 DC 01/08/25 22:23 Pantoprazole Sodium (Protonix) 40 mg BID IV 01/08/25 22:00 01/09/25 10:44 Hydralazine HCl (Apresoline Injection) 10 mg Q6HP PRN IV SBP>150 01/08/25 13:30 01/08/25 13:45 Pregabalin (Lyrica Capsule) 150 mg BID PO 01/08/25 22:00 01/09/25 09:53 DC 01/08/25 22:22 Piperacillin Sod/ Tazobactam Sod 100 ml @ 25 mls/hr Q8HR@0200,1000,1800 IV 01/09/25 02:00 01/09/25 10:45 Pregabalin (Lyrica Capsule) 150 mg BID PO 01/09/25 10:00 Review of Systems Noncontributory Vital Signs Vital Signs Date Time Temp Pulse Resp B/P (MAP) Pulse Ox O2 Delivery O2 Flow Rate FiO2 01/09/25 08:55 97.7 107 16 132/72 (92) 96 97.7 01/09/25 07:03 Room Air 01/09/25 07:03 0 21 Physical Exam Poorly built and nourished male in no acute distress but looks chronically ill and wasted Vitals normal Lungs clear Vascular unremarkable Abdomen is soft mild tenderness in the epigastrium no rigidity no guarding no masses bowel sounds normal Extremities no edema Neuro grossly intact Labs/Diagnostic Data Labs Test 01/09/25 05:15 01/08/25 22:44 01/08/25 14:06 01/08/25 03:30 Range/Units White Blood Count 22.0 #H 4.4-10.8 10^3/uL Red Blood Count 4.59 4.5-5.90 10^6/uL Hemoglobin 12.4 L 13.5-17.5 g/dL Hematocrit 38.7 L 41.0-53.0 % Mean Corpuscular Volume 84.2 80.0-100.0 fL Mean Corpuscular Hemoglobin 27.0 L 28.0-32.0 pg Mean Corpuscular Hemoglobin Concent 32.1 32.0-36.0 g/dL Red Cell Distribution Width 18.4 H 11.8-14.3 % Platelet Count 394 140-450 10^3/uL Mean Platelet Volume 7.5 6.9-10.8 fL Neutrophils (%) (Auto) 86.5 H 37.0-80.0 % Lymphocytes (%) (Auto) 5.1 L 10.0-50.0 % Monocytes (%) (Auto) 8.3 0.0-12.0 % Eosinophils (%) (Auto) 0.0 0.0-7.0 % Basophils (%) (Auto) 0.1 0.0-2.0 % Neutrophils # (Auto) 19.1 H 1.6-8.6 10 ^3/uL Lymphocytes # (Auto) 1.1 0.4-5.4 10 ^3/uL Monocytes # (Auto) 1.8 H 0-1.3 10 ^3/uL Eosinophils # (Auto) 0 0-0.8 10 ^3/uL Basophils # (Auto) 0 0-0.2 10 ^3/uL Nucleated Red Blood Cells 0.1 % Sodium Level 140 136-145 mmol/L Potassium Level 3.4 L 3.5-5.1 mmol/L Chloride Level 99 98-107 mmol/L Carbon Dioxide Level 29 20-31 mmol/L Anion Gap 12 5-15 Blood Urea Nitrogen 8 L 9-23 mg/dL Creatinine 0.49 L 0.700-1.30 mg/dL Glomerular Filtration Rate Calc 104 >90 mL/min BUN/Creatinine Ratio 16.3 10.0-20.0 Serum Glucose 157 H 74-106 mg/dL Calcium Level 9.2 8.7-10.4 mg/dL POC Glucose 244 H 70-106 mg/dl Lactic Acid Level 1.4 0.4-2.0 mmol/L Hemoglobin A1c 5.5 <5.7 % A1C Total Bilirubin 0.6 0.2-1.0 mg/dL Aspartate Amino Transferase (AST) 15 13-40 U/L Alanine Aminotransferase (ALT) < 9 7-40 U/L Alkaline Phosphatase 69 46-116 U/L Total Protein 8.1 5.7-8.2 g/dL Albumin 4.2 3.2-4.8 g/dL Test 01/08/25 01:10 01/07/25 23:17 01/07/25 20:47 01/07/25 20:32 Range/Units Influenza Type A Antigen Negative Negative Influenza Type B Antigen Negative Negative SARS-CoV-2 Antigen (Rapid) Negative NEGATIVE Troponin I High Sensitivity 18 </=54 ng/L Urine Color Light-yellow Yellow Urine Clarity Clear Clear Urine pH 6.0 5.0-9.0 Urine Specific [place] 1.010 1.001-1.035 Urine Protein Trace H Negative Urine Ketones 3+ H Negative Urine Blood Negative Negative /uL Urine Nitrite Negative Negative Urine Bilirubin Negative Negative Urine Urobilinogen Normal Negative mg/dL Urine Leukocyte Esterase Negative Negative /uL Urine RBC 1 0 - 3 /hpf Urine Microscopic WBC < 1 0-3 /HPF Urine Squamous Epithelial Cells Few <5 /hpf Urine Bacteria None seen None Seen /hpf Urine Glucose Normal Normal mg/dL Blood Gas Specimen Type Arterial Blood Gas Sample Site Right radial Blood Gas Patient Temperature 37.0 Arterial Blood Date Drawn [id number] Arterial Blood pH 7.399 7.350-7.450 Arterial Blood Partial Pressure CO2 31.9 L 35.0-48.0 mmHg Arterial Blood Partial Pressure O2 72.4 L 83.0-108.0 mmHg Arterial Blood HCO3 19.3 L 21.0-28.0 mmol/L Arterial Blood Oxygen Saturation 93.8 L 94.0-98.0 % Arterial Blood Base Excess -4.6 L -2.0-3.0 mmol/L Arterial Blood Oxyhemoglobin 91.5 L 94.0-98.0 % Arterial Blood Carboxyhemoglobin 2.2 H 0.5-1.5 % Arterial Blood Methemoglobin 0.3 0.0-1.5 % Ifeanyi Test Modified Blood Gas Total Hemoglobin 12.60 L 13.5-17.5 g/dL Blood Gas Set Respiration Rate 14.0 Blood Gas Modality Mask - bipap Blood Gas Spontaneous Rate 32 FiO2 % 35.0 Blood Gas EPAP 5 Blood Gas IPAP 12 Test 01/07/25 20:13 Range/Units Magnesium Level 1.6 1.6-2.6 mg/dL B-Type Natriuretic Peptide 137.22 0-100 pg/mL Microbiology Date/Time Source Procedure Growth Status 01/08/25 01:10 Nose MRSA Screen - Final Complete 01/07/25 20:13 Blood Blood Culture - Preliminary NO GROWTH AFTER 24 HOURS OF INCUBATION. Resulted Assessment 79-year-old male with a history of COPD dementia diabetes hypertension admitted with a [place] hematemesis as well as abdominal pain and nausea vomiting and weight loss Abdomen is soft mild nonspecific tenderness in the epigastrium no masses Clinical impression possible diabetic gastroparesis possible dementia and weight loss possible gastric gastroparesis from diabetes or gastric outlet obstruction ulcer or cancer to be ruled out Plan/Recommendation We will recommend EGD evaluation and further workup and treatment accordingly Thank you Dr. Lizarraga Plan discussed with: Patient SID LIZARRAGA MD Jan 09, 2025 11:55
[2025-01-09] MEDS: POTASSIUM CHLORIDE 20 MEQ, LIDOCAINE 1% (LOCAL ANESTH.) 2 ML in SODIUM CHL 0.9% 100 ML IV ONE (13:13)
--- NOTE | 2025-01-09 14:41 | DVHPN2 ---
Progress Note - Dictate Date Seen: Jan 09, 2025 Medical Necessity Reason Pt with a Central, PICC or Fol: No Subjective Patient apparently has high heart rate and is on amiodarone drip Mild shortness of breath no nausea vomiting no bleeding As per the family patient also had some severe weight loss and weakness and tiredness vital signs Vital Sign Date Time Temp Pulse Resp B/P (MAP) Pulse Ox O2 Delivery O2 Flow Rate FiO2 01/09/25 12:34 97.5 96 16 109/86 (94) 97 97.5 01/09/25 10:00 Nasal Cannula* 4 36 Total Intake and Output 01/08/25 01/08/25 01/09/25 15:00 23:00 07:00 Intake Total 50 ml 0 ml 0 ml Balance 50 ml 0 ml 0 ml medications Current Medications Medications Dose Ordered Sig/Milena Route Start Time Stop Time Status Last Admin Dose Admin Vancomycin HCl 0 ml @ 0 mls/hr UD IV 01/07/25 21:45 UNV Diagnostic Test (Pha) 1 strip ACHS 01/08/25 07:00 01/09/25 12:00 1 STRIP Insulin Human Regular ACHS SC 01/08/25 07:00 01/08/25 23:02 4 UNITS Dextrose 50 ml UD PRN IV 01/08/25 00:00 Ondansetron HCl 4 mg Q4HP PRN IV 01/08/25 00:00 01/08/25 10:23 4 MG Enoxaparin Sodium 40 mg DAILY SC 01/08/25 10:00 01/08/25 10:23 40 MG Acetaminophen 650 mg Q6HP PRN PO 01/08/25 00:00 Nitroglycerin 0.4 mg Q5MINP PRN SL 01/08/25 00:00 Morphine Sulfate 2 mg Q30M PRN IV 01/08/25 00:00 Acetaminophen/ Hydrocodone Bitart 1 tab Q8HP PRN PO 01/08/25 03:45 Hold 01/08/25 06:41 1 TAB Albuterol 2.5 mg Q6HR NEB 01/08/25 06:00 01/09/25 07:03 2.5 MG Ipratropium [place] 0.5 mg Q6HR NEB 01/08/25 06:00 01/09/25 07:03 0.5 MG Lisinopril 10 mg DAILY PO 01/08/25 10:00 Methylprednisolone Sodium Succinate 40 mg DAILY IV 01/09/25 10:00 01/09/25 10:44 40 MG Doxycycline Hyclate 100 ml @ 50 mls/hr Q12HR IV 01/08/25 12:45 01/09/25 10:45 50 MLS/HR Dextrose/Sodium Chloride 1,000 ml @ 75 mls/hr [id number] IV 01/08/25 12:45 01/08/25 16:47 75 MLS/HR Oxycodone/ Acetaminophen 1 tab Q6HP PRN PO 01/08/25 12:45 01/09/25 13:11 1 TAB Pantoprazole Sodium 40 mg BID IV 01/08/25 22:00 01/09/25 10:44 40 MG Hydralazine HCl 10 mg Q6HP PRN IV 01/08/25 13:30 01/08/25 13:45 10 MG Piperacillin Sod/ Tazobactam Sod 100 ml @ 25 mls/hr Q8HR@0200,1000,1800 IV 01/09/25 02:00 01/09/25 10:45 25 MLS/HR Pregabalin 150 mg BID PO 01/09/25 10:00 objective Patient is in atrial fib and amiodarone. Abdomen is soft nontender laboratory and microbiology Laboratory Tests 01/09/25 05:15 Test 01/09/25 05:15 Range/Units Serum Glucose 157 H 74-106 mg/dL Assessment/Plan 79-year-old male with a history of COPD dementia diabetes hypertension admitted with a [place] hematemesis as well as abdominal pain and nausea vomiting and weight loss Abdomen is soft mild nonspecific tenderness in the epigastrium no masses Clinical impression possible diabetic gastroparesis possible dementia and weight loss possible gastric gastroparesis from diabetes or gastric outlet obstruction ulcer or cancer to be ruled out Patient has got high got her cardiac grade we will recommend to await until the cardiac clearance is done in the heart rate is stabilized and then decide on further GI workup if possible. For the time being patient is a high high-risk and hence we will hold off the endoscopic workup until cleared by Cardiology Thank you Dr. Lizarraga Dietary Evaluation Review Comments: 1) Initiate Ensure Clear tid 2) Encourage optimal PO intake 3) Advance to NCS cardiac diet when medically feasible (liberalize diet d/t underweight and advanced age) 4) Refer to outpatient RD for weight gain 5) Follow-up with cardiology and gastroenterology 6) Continue to monitor I&O, labs, and skin integrity Expected Outcomes/Goals: 1) appetite and labs to improve 2) diet to advance 2) f/u in 2-3 days Plan discussed with: Patient SID LIZARRAGA MD Jan 09, 2025 14:41
--- NOTE | 2025-01-09 16:01 | DVHPNRES ---
Progress Note Date Seen: Jan 09, 2025 Resident Creating Document: VENECIA FENTON RESIDENT Medical Necessity Reason Pt with a Central, PICC or Fol: No Subjective Review of Systems 79-year-old male with past medical history of hypertension, diabetes mellitus, chronic back pain, dementia, atrial fibrillation, COPD and diastolic dysfunction, he uses home oxygen on 2 L. He presented with shortness of breath. Patient had one-week history of worsening shortness for breath with associated cough and sputum. Reports loss of appetite. Sputum is productive, yellow in color. On arrival patient was noted to be saturating in the 80s. Patient presented with tachycardia, tachypnea, hypertension, hyperglycemia. Negative history of fever, chills, burning micturition, chest pain, orthopnea, recent sick contact. He was admitted in May 2024 for pneumonia for which he received antibiotics. 01/08/25: Chest x-ray shows bilateral diffuse pulmonary infiltrate. He was started on IV fluids and vancomycin and Zosyn. Blood culture sent. He had hypokalemia and was treated with IV potassium chloride. Had an episode of bloody emesis. GI consulted, EGD advised. 01/09/25: Patient has no new complaints. He has tachycardia, irregular rate with premature ventricular contractions on telemetry. Patient was administered 1 dose of amiodarone. GI is evaluating and cardiac consult placed. Labs show leukocytosis, hypokalemia. ROS: Constitutional: Denies fever and chills. HEENT: Denies changes in vision and hearing. Respiratory: Difficulty breathing Cardiovascular: Denies chest discomfort or palpitations GI: Denies abdominal pain, nausea, vomiting and diarrhea. : Denies dysuria and urinary frequency. Musculoskeletal: Pain in left hip. Skin: Denies rash and pruritus. Neurological: Denies dizziness, headache, vision or hearing problems Objective vital signs Vital Sign Date Time Temp Pulse Resp B/P (MAP) Pulse Ox O2 Delivery O2 Flow Rate FiO2 01/09/25 12:34 97.5 96 16 109/86 (94) 97 97.5 01/09/25 10:00 Nasal Cannula* 4 36 Total Intake and Output 01/08/25 01/08/25 01/09/25 15:00 23:00 07:00 Intake Total 50 ml 0 ml 0 ml Balance 50 ml 0 ml 0 ml medications Current Medications Medications Dose Ordered Sig/Milena Route Start Time Stop Time Status Last Admin Dose Admin Vancomycin HCl 0 ml @ 0 mls/hr UD IV 01/07/25 21:45 UNV Diagnostic Test (Pha) 1 strip ACHS 01/08/25 07:00 01/09/25 12:00 1 STRIP Insulin Human Regular ACHS SC 01/08/25 07:00 01/08/25 23:02 4 UNITS Dextrose 50 ml UD PRN IV 01/08/25 00:00 Ondansetron HCl 4 mg Q4HP PRN IV 01/08/25 00:00 01/08/25 10:23 4 MG Enoxaparin Sodium 40 mg DAILY SC 01/08/25 10:00 01/08/25 10:23 40 MG Acetaminophen 650 mg Q6HP PRN PO 01/08/25 00:00 Nitroglycerin 0.4 mg Q5MINP PRN SL 01/08/25 00:00 Morphine Sulfate 2 mg Q30M PRN IV 01/08/25 00:00 Acetaminophen/ Hydrocodone Bitart 1 tab Q8HP PRN PO 01/08/25 03:45 Hold 01/08/25 06:41 1 TAB Albuterol 2.5 mg Q6HR NEB 01/08/25 06:00 01/09/25 07:03 2.5 MG Ipratropium [place] 0.5 mg Q6HR NEB 01/08/25 06:00 01/09/25 07:03 0.5 MG Lisinopril 10 mg DAILY PO 01/08/25 10:00 Methylprednisolone Sodium Succinate 40 mg DAILY IV 01/09/25 10:00 01/09/25 10:44 40 MG Doxycycline Hyclate 100 ml @ 50 mls/hr Q12HR IV 01/08/25 12:45 01/09/25 10:45 50 MLS/HR Dextrose/Sodium Chloride 1,000 ml @ 75 mls/hr [id number] IV 01/08/25 12:45 01/08/25 16:47 75 MLS/HR Oxycodone/ Acetaminophen 1 tab Q6HP PRN PO 01/08/25 12:45 01/09/25 13:11 1 TAB Pantoprazole Sodium 40 mg BID IV 01/08/25 22:00 01/09/25 10:44 40 MG Hydralazine HCl 10 mg Q6HP PRN IV 01/08/25 13:30 7/3/25 13:45 10 MG Piperacillin Sod/ Tazobactam Sod 100 ml @ 25 mls/hr Q8HR@0200,1000,1800 IV 01/09/25 02:00 01/09/25 10:45 25 MLS/HR Pregabalin 150 mg BID PO 01/09/25 10:00 Examination Physical examination: General: Cachexia. Oriented in person, place and time. HEENT: Normocephalic, atraumatic. Respiratory/pulmonary: Reduced breath sounds. Low-pitched wheeze in right lower lung. Cardiovascular: Irregular heart sounds on auscultation, no associated murmurs Abdomen: Abdomen sunken, no palpable masses. Extremities: There is no peripheral edema present at the lower extremities. Skin: No rashes or pruritus, there is no sacral edema present at this time. Neurological: Intact cranial nerves with no focal neurologic deficits laboratory and microbiology Laboratory Tests 01/09/25 05:15 Test 01/09/25 05:15 Range/Units Serum Glucose 157 H 74-106 mg/dL Microbiology Date/Time Source Procedure Growth Status 01/08/25 01:10 Nose MRSA Screen - Final Complete 01/07/25 20:13 Blood Blood Culture - Preliminary NO GROWTH AFTER 24 HOURS OF INCUBATION. Resulted Problem List/Assessment/Plan Problem List/Assessment/Plan 1. Sepsis due to pneumonia, Gram-negative, Gram positive, possibly 2. Acute exacerbation of COPD 3. Acute on chronic hypoxic respiratory failure - Chest x-ray shows diffuse pulmonary interstitial opacities and pleural effusions bilaterally - Influenza and SARS-CoV-2 negative - Ordered sputum culture. Blood culture negative. MRSA screen negative. - Currently on IV vancomycin and Zosyn. Previously switched vancomycin to IV doxycycline 100 mg b.i.d.. to cover atypical as well - Continue ipratropium bromide, albuterol and methylprednisolone 4. Hypokalemia 5. Severely Malnourished 6. Rule out GI bleed 7. Chronic hip pain - GI consulted. EGD done to rule out GI bleed - CT abdomen pelvis with oral contrast ordered. - Administered IV potassium chloride 20 mEq. - Nutritional consult recommended to encourage p.o. intake and advanced to NCS cardiac diet when medically feasible. - Continues [place] for pain control as needed. 8. Leukocytosis 9. Lactic acidosis 10. Hypoglycemia 11. Hypertension - HTN managed with lisinopril and hydralazine. Goals of care discussed with the patient at bedside for > 25 minutes. Full code Plan discussed with Dr. Lopes Plan discussed with: Patient, Daughter (Both patient & daughter) My Orders My Orders Orders - VENECIA FENTON Procedure Category Date Status Time Pt Request For Service PT 01/09/25 Logged 06:11 * Meat Lugger CONS 01/09/25 Transmitted Consult * Cardiology Consult CONS 01/09/25 Transmitted 15:03 Complete Blood Count LAB 01/10/25 Verified 04:00 Basic Metabolic Panel LAB 01/10/25 Verified 04:00 Dietary Evaluation Review Comments: 1) Initiate Ensure Clear tid 2) Encourage optimal PO intake 3) Advance to NCS cardiac diet when medically feasible (liberalize diet d/t underweight and advanced age) 4) Refer to outpatient RD for weight gain 5) Follow-up with cardiology and gastroenterology 6) Continue to monitor I&O, labs, and skin integrity Expected Outcomes/Goals: 1) appetite and labs to improve 2) diet to advance 2) f/u in 2-3 days VENECIA FENTON RESIDENT Jan 09, 2025 16:01
--- NOTE | 2025-01-09 18:36 | DVH ---
Exam: CT CT AB PEL WITH ORAL CON ONLY History: GI bleed Comparison Study: None TECHNIQUE: Multidetector CT of the abdomen was performed from lung bases to pubic symphysis. Imaging was performed without IV contrast. Axial, coronal and sagittal multiplanar reformats were obtained fr om the axial data set by the technologist. Radiation Dose : 1. Abdomen/Pelvis: CTDIvol 5.1 mGy, DLP 236.5 mGy*cm. FINDINGS: Evaluation of solid organs is limited due to lack of intravenous contrast use. Findings: Lung Bases: Diffuse interstitial opacities with bronchial wall thickening and bronchial impaction wit h emphysematous changes. Liver: The liver is normal in size. No focal lesions. Gallbladder and Biliary Tree: Unremarkable Spleen: Unremarkable Pancreas: The pancreas is grossly normal in appearance. Adrenal Glands: Unremarkable Kidneys: Kidneys are grossly normal without calculi or hydronephrosis. Bladder: Grossly unremarkable for degree of distention. Bowel: Contrast is visualized in the colon. There is wall thickening in the ascending colon/ cecum. Underlying mass can not be excluded. Colonic diverticulosis without CT evidence of acute diverticuli tis. Ascites: Absent Lymphadenopathy: No mesenteric, retroperitoneal or periportal lymphadenopathy. Abdominal Wall and Mesentery: Unremarkable. Vasculature: Severe atherosclerotic vascular disease of the abdominal aorta and its branches. The abd ominal aorta is ectatic. Pelvic Organs: Unremarkable Musculoskeletal: No aggressive focal bony lesions, acute fractures or dislocation. Soft tissues: Unremarkable IMPRESSION: There is wall thickening in the ascending colon/ cecum. Underlying mass can not be excluded. Recomm end direct visualization with colonoscopy. Diffuse interstitial opacities with bronchial wall thickening and bronchial impaction with emphysemat ous changes. Radiation optimization: All CT scans at this facility use at least one of these dose optimization oanh hniques: automated exposure control mA and/or kV adjustment per patient size (includes targeted exam s where dose is matched to clinical indication) or iterative reconstruction.
[2025-01-09] MEDS ORDERED: MIDODRINE HCL 10 MG TAB PO ONE (21:00)
[2025-01-10] VITALS (17 sets, daily range): BP systolic 102–144; BP diastolic 60–77; PULSE 76–96; RESP 16–18; TEMP 97.4–98.7; O2SAT 96–100
[2025-01-10 06:48] LABS: Hematocrit 36.4 % (41.0-53.0); Hemoglobin 11.6 g/dL (13.5-17.5); Mean Corpuscular Hemoglobin 27.0 pg (28.0-32.0); Mean Corpuscular Volume 84.5 fL (80.0-100.0); Nucleated Red Blood Cells % 0.0 %
[2025-01-10 06:53] LABS: Anion Gap 9 (5-15); Chloride 99 mmol/L (98-107); Sodium 140 mmol/L (136-145)
[2025-01-10 06:55] LABS: Calcium 9.8 mg/dL (8.7-10.4)
[2025-01-10 06:59] LABS: BUN/Creatinine Ratio 15.8 (10.0-20.0); Carbon Dioxide 32 mmol/L (20-31); Potassium 3.0 mmol/L (3.5-5.1)
[2025-01-10 07:13] LABS: Blood Urea Nitrogen 9 mg/dL (9-23); Glucose 145 mg/dL (74-106)
--- NOTE | 2025-01-10 10:19 | DVHINCON2 ---
Date Seen: Jan 10, 2025 Referring Physician MD Vickie resident Reason for Consultation Cardiac risk stratification and AFib History of Present Illness This is an 79-year-old male patient who presents to the emergency room with chief complaint of worsening shortness of breath for one day. He also mentions abdominal pain that he has had for approximately one year. Cardiology has been consulted at this time for cardiac risk stratification and atrial fibrillation. At the time of assessment, the patient is a very poor historian and denies all past medical history. Spoke with the patient's daughter, Cyndee, for more information. Initial twelve lead electrocardiogram reveals atrial fibrillation with rapid ventricular response, PVCs and left ventricular hypertrophy. The patient was initiated on an amiodarone drip per primary team. At the time of assessment, the patient is back in normal sinus rhythm with PACs and PVCs on monitoring tech. Significant past medical history includes paroxysmal atrial fibrillation/flutter, hypertension, dyslipidemia, COPD with continuous home O2 use, type 2 diabetes mellitus, urinary incontinence, chronic back pain, and dementia. 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 Past Medical History Past medical history reviewed. No other significant than mentioned above. Past Surgical History Denies all previous surgeries Family History: Diabetes mellitus G8 MOTHER G8 FATHER Family History Family history reviewed. Social History Patient has a 60 pack-year history, quit smoking approximately 30 years ago Denies any illicit drug use Denies any alcohol use Allergies: Coded Allergies: NO KNOWN ALLERGIES (Unverified , 04/02/24) Home Meds Reported Medications Pregabalin (Pregabalin) 200 Mg Cap, 1 CAP PO BIDPRN PRN for neuropathy 04/03/24 Atorvastatin Calcium (ATORVASTATIN CALCIUM) 20 Mg Tab, 1 TAB PO DAILY 04/03/24 Glipizide (Glipizide) 5 Mg Tab, 1 TAB PO DAILY 04/03/24 Apixaban Base (ELIQUIS) 5 Mg Tab, 5 MG PO BID, TAB 04/03/24 Home Meds Home medications reviewed. Review of Systems Constitutional: No symptom reported Ears, Nose, & Throat: No symptom reported Eyes: No symptom reported Neurological: No symptoms reported Pulmonary/Respiratory: Shortness of breath Cardiovascular: No symptom reported Gastrointestinal: Abdominal pain Genitourinary: No symptom reported Musculoskeletal: No symptom reported Skin: No symptom reported Psychiatric: No symptom reported Endocrine: No symptom reported Hematologic/Lymphatic: No symptom reported Vital Signs Vital Signs Date Time Temp Pulse Resp B/P (MAP) Pulse Ox O2 Delivery O2 Flow Rate FiO2 01/10/25 09:34 144/77 01/10/25 08:45 97.4 85 16 98 97.4 01/10/25 06:16 Nasal Cannula* 1 24 Physical Exam General Appearance: Cooperative. Thin, frail Pulmonary/Respiratory: Clear, bilateral breaths sounds. Cardiovascular/Chest: Regular rate and rhythm. Peripheral Pulses: 2+ Radial (R). 2+ Radial (L). 2+ Pedal (R). 2+ Pedal (L) Abdominal Exam: Normal bowel sounds. Ankle Exam: Negative ankle edema Lower extremities: Negative lower extremity edema Neuro/Mental Status: A/OX3, coherent. Thoughts/Psych: Normal thought pattern. Appropriate mood and affect. Good judgment and insight. Appearance: No acute distress. Skin Exam: Generalized ecchymosis. Skin warm and dry. Labs/Diagnostic Data Labs Test 01/10/25 05:05 01/09/25 22:34 01/09/25 11:09 01/08/25 14:06 Range/Units White Blood Count 15.9 #H 4.4-10.8 10^3/uL Red Blood Count 4.31 L 4.5-5.90 10^6/uL Hemoglobin 11.6 L 13.5-17.5 g/dL Hematocrit 36.4 L 41.0-53.0 % Mean Corpuscular Volume 84.5 80.0-100.0 fL Mean Corpuscular Hemoglobin 27.0 L 28.0-32.0 pg Mean Corpuscular Hemoglobin Concent 32.0 32.0-36.0 g/dL Red Cell Distribution Width 17.8 H 11.8-14.3 % Platelet Count 342 140-450 10^3/uL Mean Platelet Volume 7.5 6.9-10.8 fL Neutrophils (%) (Auto) 86.3 H 37.0-80.0 % Lymphocytes (%) (Auto) 6.5 L 10.0-50.0 % Monocytes (%) (Auto) 7.1 0.0-12.0 % Eosinophils (%) (Auto) 0.0 0.0-7.0 % Basophils (%) (Auto) 0.1 0.0-2.0 % Neutrophils # (Auto) 13.7 H 1.6-8.6 10 ^3/uL Lymphocytes # (Auto) 1.0 0.4-5.4 10 ^3/uL Monocytes # (Auto) 1.1 0-1.3 10 ^3/uL Eosinophils # (Auto) 0 0-0.8 10 ^3/uL Basophils # (Auto) 0 0-0.2 10 ^3/uL Nucleated Red Blood Cells 0.0 % Sodium Level 140 136-145 mmol/L Potassium Level 3.0 L 3.5-5.1 mmol/L Chloride Level 99 98-107 mmol/L Carbon Dioxide Level 32 H 20-31 mmol/L Anion Gap 9 5-15 Blood Urea Nitrogen 9 9-23 mg/dL Creatinine 0.57 L 0.700-1.30 mg/dL Glomerular Filtration Rate Calc 99 >90 mL/min BUN/Creatinine Ratio 15.8 10.0-20.0 Serum Glucose 145 H 74-106 mg/dL Calcium Level 9.8 8.7-10.4 mg/dL POC Glucose 269 H 70-106 mg/dl Prothrombin Time 11.1 9.3-11.8 sec Prothrombin Time INR 1.05 0.9-1.15 Activated Partial Thromboplast Time 28.6 24.5-34.5 SEC Lactic Acid Level 1.4 0.4-2.0 mmol/L Test 01/08/25 03:30 01/08/25 01:10 01/07/25 23:17 01/07/25 20:47 Range/Units Hemoglobin A1c 5.5 <5.7 % A1C Total Bilirubin 0.6 0.2-1.0 mg/dL Aspartate Amino Transferase (AST) 15 13-40 U/L Alanine Aminotransferase (ALT) < 9 7-40 U/L Alkaline Phosphatase 69 46-116 U/L Total Protein 8.1 5.7-8.2 g/dL Albumin 4.2 3.2-4.8 g/dL Influenza Type A Antigen Negative Negative Influenza Type B Antigen Negative Negative SARS-CoV-2 Antigen (Rapid) Negative NEGATIVE Troponin I High Sensitivity 18 </=54 ng/L Urine Color Light-yellow Yellow Urine Clarity Clear Clear Urine pH 6.0 5.0-9.0 Urine Specific [place] 1.010 1.001-1.035 Urine Protein Trace H Negative Urine Ketones 3+ H Negative Urine Blood Negative Negative /uL Urine Nitrite Negative Negative Urine Bilirubin Negative Negative Urine Urobilinogen Normal Negative mg/dL Urine Leukocyte Esterase Negative Negative /uL Urine RBC 1 0 - 3 /hpf Urine Microscopic WBC < 1 0-3 /HPF Urine Squamous Epithelial Cells Few <5 /hpf Urine Bacteria None seen None Seen /hpf Urine Glucose Normal Normal mg/dL Test 01/07/25 20:32 01/07/25 20:13 Range/Units Blood Gas Specimen Type Arterial Blood Gas Sample Site Right radial Blood Gas Patient Temperature 37.0 Arterial Blood Date Drawn [id number] Arterial Blood pH 7.399 7.350-7.450 Arterial Blood Partial Pressure CO2 31.9 L 35.0-48.0 mmHg Arterial Blood Partial Pressure O2 72.4 L 83.0-108.0 mmHg Arterial Blood HCO3 19.3 L 21.0-28.0 mmol/L Arterial Blood Oxygen Saturation 93.8 L 94.0-98.0 % Arterial Blood Base Excess -4.6 L -2.0-3.0 mmol/L Arterial Blood Oxyhemoglobin 91.5 L 94.0-98.0 % Arterial Blood Carboxyhemoglobin 2.2 H 0.5-1.5 % Arterial Blood Methemoglobin 0.3 0.0-1.5 % Ifeanyi Test Modified Blood Gas Total Hemoglobin 12.60 L 13.5-17.5 g/dL Blood Gas Set Respiration Rate 14.0 Blood Gas Modality Mask - bipap Blood Gas Spontaneous Rate 32 FiO2 % 35.0 Blood Gas EPAP 5 Blood Gas IPAP 12 B-Type Natriuretic Peptide 137.22 0-100 pg/mL Microbiology Date/Time Source Procedure Growth Status 01/08/25 01:10 Nose MRSA Screen - Final Complete 01/07/25 20:13 Blood Blood Culture - Preliminary NO GROWTH AFTER 48 HOURS OF INCUBATION. Resulted Assessment Preprocedural cardiovascular examination Paroxysmal atrial fibrillation, [id number] Chronic compensated HFmrEF, NYHA class II Hypertension Dyslipidemia Hypokalemia Sepsis COPD with continuous home O2 use Type 2 diabetes mellitus Chronic back pain Dementia Plan/Recommendation We will continue with the following plan/recommendations (Dr. Coto): * Transthoracic echocardiogram reveals EF 45% with no severe valve abnormalities * [id number] score: 4 points, HAS-BLED: 1 point * Stop amiodarone drip, transition to oral Amiodarone for rhythm control * Consider therapeutic Lovenox while inpatient, then transition to NOAC prior to discharge-----if cleared by GI team * Beta-dwight for rate control as tolerated and up-titrate as needed * Monitor and replete electrolytes as needed, keep potassium greater than four and magnesium greater than two * Close Cardiac surveillance Case discussed with . Revised Cardiac Risk Index (Dev criteria): 1 point (1.1% risk of major cardiac event). The patient has no cardiac contraindications to proceed with the procedure. Patient has an underlying history of paroxysmal atrial fibrillation, currently has converted back into normal sinus rhythm. Per cardiology standpoint, patient is at an acceptable-risk for moderate-risk surgery. There is no additional cardiac work-up indicated prior to surgery. Thank you for allowing us to participate in this patient's care. Please call if you have any questions or concerns. Critical care time spent: 44 minutes This medical document was created using an electronic medical record system with voice recognition software and computerized dictation system. Although this document has been carefully reviewed, there might still be some phonetic and typographical errors. Occasional wrong-word or ``sound-alike substitutions may have occurred due to the inherent limitations of voice recognition software. These areas are purely typographical due to imperfections of the software programs and do not reflect any compromise in the patient's medical care. Please read the chart carefully and recognize, using context, where these substitutions have occurred. Plan discussed with: Patient NYHA Physical activity limitations: Class2(Slight)fatigue,sob (palpitatns, angina w activityv) Date of Service: Jan 10, 2025 Billing Provider: SONY KNOWLES Cardiology Common Codes: 18300-JEVMLBZ INP/OBS CARE (High) Cardiology Consultation Codes: 20919-[id number] CONSULT <45MIN SONY KNOWLES Jan 10, 2025 10:19
[2025-01-10] MEDS: MAGNESIUM SULFATE 1GM/100ML 100 ML IV ONE (13:02)
[2025-01-10] MEDS: OXYCODONE W/ ACETAMINOPHEN 5/325MG TABLET PO PRN (13:14)
--- NOTE | 2025-01-10 13:48 | DVHPN2 ---
Progress Note - Dictate Date Seen: Jan 10, 2025 Medical Necessity Reason Pt with a Central, PICC or Fol: No Subjective Patient apparently has converted to sinus rhythm is on amiodarone drip Mild shortness of breath no nausea vomiting no bleeding CT scan showed possible mass lesion in the ascending colon cecum suspicious for neoplasm As per the family patient also had some severe weight loss and weakness and tiredness Cardiology consult is pending and they have ordered echo etc. before the cardiac clearance vital signs Vital Sign Date Time Temp Pulse Resp B/P (MAP) Pulse Ox O2 Delivery O2 Flow Rate FiO2 01/10/25 13:00 98.2 76 16 133/63 (86) 100 98.2 01/10/25 11:23 Nasal Cannula* 2 28 Total Intake and Output 01/09/25 01/09/25 01/10/25 15:00 23:00 07:00 Intake Total 820 ml 700 ml 750 ml Output Total 400 ml Balance 420 ml 700 ml 750 ml medications Current Medications Medications Dose Ordered Sig/Milena Route Start Time Stop Time Status Last Admin Dose Admin Vancomycin HCl 0 ml @ 0 mls/hr UD IV 01/07/25 21:45 UNV Diagnostic Test (Pha) 1 strip ACHS 01/08/25 07:00 01/10/25 13:02 1 STRIP Insulin Human Regular ACHS SC 01/08/25 07:00 01/10/25 13:05 3 UNITS Dextrose 50 ml UD PRN IV 01/08/25 00:00 Ondansetron HCl 4 mg Q4HP PRN IV 01/08/25 00:00 01/08/25 10:23 4 MG Enoxaparin Sodium 40 mg DAILY SC 01/08/25 10:00 01/08/25 10:23 40 MG Acetaminophen 650 mg Q6HP PRN PO 01/08/25 00:00 Nitroglycerin 0.4 mg Q5MINP PRN SL 01/08/25 00:00 Morphine Sulfate 2 mg Q30M PRN IV 01/08/25 00:00 Acetaminophen/ Hydrocodone Bitart 1 tab Q8HP PRN PO 01/08/25 03:45 Hold 01/08/25 06:41 1 TAB Albuterol 2.5 mg Q6HR NEB 01/08/25 06:00 01/10/25 11:23 2.5 MG Ipratropium Mobile 0.5 mg Q6HR NEB 01/08/25 06:00 01/10/25 11:23 0.5 MG Lisinopril 10 mg DAILY PO 01/08/25 10:00 01/10/25 09:34 10 MG Methylprednisolone Sodium Succinate 40 mg DAILY IV 01/09/25 10:00 01/10/25 09:43 40 MG Doxycycline Hyclate 100 ml @ 50 mls/hr Q12HR IV 01/08/25 12:45 01/10/25 09:40 50 MLS/HR Dextrose/Sodium Chloride 1,000 ml @ 75 mls/hr [id number] IV 01/08/25 12:45 01/09/25 15:36 75 MLS/HR Pantoprazole Sodium 40 mg BID IV 01/08/25 22:00 01/10/25 09:43 40 MG Hydralazine HCl 10 mg Q6HP PRN IV 01/08/25 13:30 01/08/25 13:45 10 MG Piperacillin Sod/ Tazobactam Sod 100 ml @ 25 mls/hr Q8HR@0200,1000,1800 IV 01/09/25 02:00 01/10/25 03:46 25 MLS/HR Pregabalin 150 mg BID PO 01/09/25 10:00 01/10/25 09:34 150 MG Amiodarone HCl 200 mg Q12HR PO 01/10/25 22:00 Metoprolol Tartrate 12.5 mg BID PO 01/10/25 22:00 Oxycodone/ Acetaminophen 2 tab Q6HPRN PRN PO 01/10/25 12:45 01/10/25 13:14 2 TAB objective Patient is in atrial fib and amiodarone. Abdomen is soft nontender Awaiting cardiac clearance Plans scheduled for colon tomorrow if clearance is obtained from cardiology Otherwise endorsed to Dr. Quintero for the colonoscopy after getting the clearance Thank you Dr. Nixon laboratory and microbiology Laboratory Tests 01/10/25 05:05 Test 01/10/25 05:05 Range/Units Serum Glucose 145 H 74-106 mg/dL Assessment/Plan 79-year-old male with a history of COPD dementia diabetes hypertension admitted with a [place] hematemesis as well as abdominal pain and nausea vomiting and weight loss Abdomen is soft mild nonspecific tenderness in the epigastrium no masses Clinical impression possible diabetic gastroparesis possible dementia and weight loss possible gastric gastroparesis from diabetes or gastric outlet obstruction ulcer or cancer to be ruled out Patient has got high got her cardiac grade we will recommend to await until the cardiac clearance is done in the heart rate is stabilized and then decide on further GI workup if possible. For the time being patient is a high high-risk and hence we will hold off the endoscopic workup until cleared by Cardiology Thank you Dr. Nixon Dietary Evaluation Review Comments: 1) Initiate Ensure Clear tid 2) Encourage optimal PO intake 3) Advance to NCS cardiac diet when medically feasible (liberalize diet d/t underweight and advanced age) 4) Refer to outpatient RD for weight gain 5) Follow-up with cardiology and gastroenterology 6) Continue to monitor I&O, labs, and skin integrity Expected Outcomes/Goals: 1) appetite and labs to improve 2) diet to advance 2) f/u in 2-3 days Plan discussed with: Patient SID NIXON MD Jan 10, 2025 13:48
[2025-01-10] MEDS: AMIODARONE HCL 200 MG TAB PO ONE (14:00)
[2025-01-10] MEDS ORDERED: POTASSIUM CHL 20MEQ/100ML 100 ML IV SCH (15:30)
--- NOTE | 2025-01-10 15:33 | DVHPNRES ---
Progress Note Date Seen: Jan 10, 2025 Resident Creating Document: MAC CHARLES RESIDENT Has the PT tested + for MRSA If YES, has PT been informed?: No Medical Necessity Reason Pt with a Central, PICC or Fol: No Subjective Review of Systems This is an 79-year-old male with past medical history of hypertension, diabetes mellitus, chronic back pain, dementia, atrial fibrillation, COPD and diastolic dysfunction, he uses home oxygen on 2 L. He presented with shortness of breath. Patient had one-week history of worsening shortness for breath with associated cough and sputum. Reports loss of appetite. Sputum is productive, yellow in color. On arrival patient was noted to be saturating in the 80s. Patient presented with tachycardia, tachypnea, hypertension, hyperglycemia. Negative history of fever, chills, burning micturition, chest pain, orthopnea, recent sick contact. He was admitted in May 2024 for pneumonia for which he received antibiotics. Patient seen and examined at bedside. Patient is cachectic and looks weak and states very minimal discomfort at the abdominal region. Patient denied fever/chills, chest pain, shortness of breath or any other associated symptoms. Patient is currently back on 2 L of oxygen through nasal cannula which is currently his baseline. CT of the abdomen and pelvis with contrast showed wall thickening at the level of the colon with an underlying mass could not be excluded. Tele monitor was reviewed and patient is on sinus rhythm with recurrent PACs and PVCs which makes it irregular. Cardiology was consulted for preoperative clearance and AFib with RVR control. They recommended to switch patient to p.o. amiodarone and consider anticoagulation. We will wait for EGD and colonoscopy to be done and afterward we will start anticoagulation. ROS Constitutional: weight loss, loss of appetite. HEENT: Denies changes in vision and hearing. Respiratory: Denies shortness of breath and cough Cardiovascular: Denies chest discomfort or palpitations GI: Reports mild abdominal discomfort. Denies nausea, vomiting or constipation. : Denies dysuria and urinary frequency. Musculoskeletal: Denies myalgias and joint pain Skin: Denies rash and pruritus. Neurological: Denies dizziness, headache, vision or hearing problems Objective vital signs Vital Sign Date Time Temp Pulse Resp B/P (MAP) Pulse Ox O2 Delivery O2 Flow Rate FiO2 01/10/25 13:00 98.2 76 16 133/63 (86) 100 98.2 7/5/25 11:23 Nasal Cannula* 2 28 Total Intake and Output 01/09/25 01/09/25 01/10/25 15:00 23:00 07:00 Intake Total 820 ml 700 ml 750 ml Output Total 400 ml Balance 420 ml 700 ml 750 ml medications Current Medications Medications Dose Ordered Sig/Milena Route Start Time Stop Time Status Last Admin Dose Admin Vancomycin HCl 0 ml @ 0 mls/hr UD IV 01/07/25 21:45 UNV Diagnostic Test (Pha) 1 strip ACHS 01/08/25 07:00 01/10/25 13:02 1 STRIP Insulin Human Regular ACHS SC 01/08/25 07:00 01/10/25 13:05 3 UNITS Dextrose 50 ml UD PRN IV 01/08/25 00:00 Ondansetron HCl 4 mg Q4HP PRN IV 01/08/25 00:00 01/08/25 10:23 4 MG Enoxaparin Sodium 40 mg DAILY SC 01/08/25 10:00 01/08/25 10:23 40 MG Acetaminophen 650 mg Q6HP PRN PO 01/08/25 00:00 Nitroglycerin 0.4 mg Q5MINP PRN SL 01/08/25 00:00 Morphine Sulfate 2 mg Q30M PRN IV 01/08/25 00:00 Acetaminophen/ Hydrocodone Bitart 1 tab Q8HP PRN PO 01/08/25 03:45 Hold 01/08/25 06:41 1 TAB Albuterol 2.5 mg Q6HR NEB 01/08/25 06:00 01/10/25 11:23 2.5 MG Ipratropium [place] 0.5 mg Q6HR NEB 01/08/25 06:00 01/10/25 11:23 0.5 MG Lisinopril 10 mg DAILY PO 01/08/25 10:00 01/10/25 09:34 10 MG Methylprednisolone Sodium Succinate 40 mg DAILY IV 01/09/25 10:00 01/10/25 09:43 40 MG Doxycycline Hyclate 100 ml @ 50 mls/hr Q12HR IV 01/08/25 12:45 01/10/25 09:40 50 MLS/HR Dextrose/Sodium Chloride 1,000 ml @ 75 mls/hr [id number] IV 01/08/25 12:45 01/09/25 15:36 75 MLS/HR Pantoprazole Sodium 40 mg BID IV 01/08/25 22:00 01/10/25 09:43 40 MG Hydralazine HCl 10 mg Q6HP PRN IV 01/08/25 13:30 01/08/25 13:45 10 MG Piperacillin Sod/ Tazobactam Sod 100 ml @ 25 mls/hr Q8HR@0200,1000,1800 IV 01/09/25 02:00 01/10/25 03:46 25 MLS/HR Pregabalin 150 mg BID PO 01/09/25 10:00 01/10/25 09:34 150 MG Amiodarone HCl 200 mg Q12HR PO 01/10/25 22:00 Metoprolol Tartrate 12.5 mg BID PO 01/10/25 22:00 Oxycodone/ Acetaminophen 2 tab Q6HPRN PRN PO 01/10/25 12:45 01/10/25 13:14 2 TAB Examination Physical examination: General: Cachexia. Oriented in person, place and time. HEENT: Normocephalic, atraumatic. Respiratory/pulmonary: Reduced breath sounds. No significant wheezes at this time. Cardiovascular: Irregular heart sounds on auscultation, no associated murmurs Abdomen: Abdomen mildly tender to palpation, no palpable masses. Extremities: There is no peripheral edema present at the lower extremities. Skin: No rashes or pruritus, there is no sacral edema present at this time. Neurological: Intact cranial nerves with no focal neurologic deficits laboratory and microbiology Laboratory Tests 01/10/25 05:05 Test 01/10/25 05:05 Range/Units Serum Glucose 145 H 74-106 mg/dL Microbiology Date/Time Source Procedure Growth Status 01/08/25 01:10 Nose MRSA Screen - Final Complete 01/07/25 20:13 Blood Blood Culture - Preliminary NO GROWTH AFTER 48 HOURS OF INCUBATION. Resulted Problem List/Assessment/Plan Problem List/Assessment/Plan Assessment/plan Acute on chronic abdominal pain likely due to Colonic mass at the level of the cecum Possible upper/lower GI bleed Severely malnourished and cachectic likely due to above AFib with RVR, currently on sinus rhythm with recurrent PACs and PVCs -amiodarone p.o., metoprolol tartrate 12.5 mg b.i.d. -cardiology on board, recommended to transition IV amiodarone to p.o. amiodarone. Recommended to start anticoagulation when GI provides clearance -we will start anticoagulation after EGD and colonoscopy is performed -GI on board, we will perform colonoscopy/EGD once cardio clears the patient. -CT of the abdomen and pelvis with contrast showed wall thickening at the level of the colon/cecum with possible mass -EGD/colonoscopy scheduled likely for tomorrow Sepsis due to Gram-positive/Gram-negative bacterial pneumonia Acute COPD exacerbation Acute hypoxic respiratory failure likely due to above - Chest x-ray shows diffuse pulmonary interstitial opacities and pleural effusions bilaterally - Influenza and SARS-CoV-2 negative - Ordered sputum culture. Blood culture negative. MRSA screen negative. -continue doxycycline, continue IV Zosyn -continue albuterol/ipratropium med nebs -methylprednisolone 40 mg IV daily Hypokalemia -potassium was 3.0, was repleted Chronic back pain/hip pain likely due to osteoarthritis -pain modulation Primary hypertension -Lisinopril 10 mg daily -metoprolol tartrate 12.5 mg b.i.d. -monitor blood pressure closely Goals of care discussed with the patient at bedside for > 25 minutes. Full code Plan discussed with Dr. Lopes Plan discussed with: Patient Dietary Evaluation Review Comments: 1) Initiate Ensure Clear tid 2) Encourage optimal PO intake 3) Advance to NCS cardiac diet when medically feasible (liberalize diet d/t underweight and advanced age) 4) Refer to outpatient RD for weight gain 5) Follow-up with cardiology and gastroenterology 6) Continue to monitor I&O, labs, and skin integrity Expected Outcomes/Goals: 1) appetite and labs to improve 2) diet to advance 2) f/u in 2-3 days MAC CHARLES RESIDENT Jan 10, 2025 15:33 VENECIA FENTON RESIDENT Jan 14, 2025 17:46
[2025-01-10] MEDS: POTASSIUM CHLORIDE 60 MEQ, LIDOCAINE 1% (LOCAL ANESTH.) 6 ML in SODIUM CHL 0.9% 500 ML IV ONE (18:10)
[2025-01-10] MEDS: METOPROLOL TARTRATE 25 MG TAB PO SCH (22:51)
[2025-01-10] MEDS: AMIODARONE HCL 200 MG TAB PO SCH (22:52)
[2025-01-11] VITALS (18 sets, daily range): BP systolic 106–144; BP diastolic 55–86; PULSE 58–96; RESP 16–19; TEMP 97.4–98.1; O2SAT 92–100
[2025-01-11 06:05] LABS: Hematocrit 34.6 % (41.0-53.0); Hemoglobin 11.3 g/dL (13.5-17.5); Mean Corpuscular Hemoglobin 27.4 pg (28.0-32.0); Mean Corpuscular Volume 83.5 fL (80.0-100.0); Nucleated Red Blood Cells % 0.1 %
[2025-01-11 06:14] LABS: Anion Gap 9 (5-15); Calcium 9.6 mg/dL (8.7-10.4); Carbon Dioxide 29 mmol/L (20-31); Chloride 101 mmol/L (98-107); Potassium 3.9 mmol/L (3.5-5.1); Sodium 139 mmol/L (136-145)
[2025-01-11 06:20] LABS: BUN/Creatinine Ratio 14.8 (10.0-20.0); Blood Urea Nitrogen 8 mg/dL (9-23); Glucose 108 mg/dL (74-106)
--- NOTE | 2025-01-11 09:52 | DVHSR ---
APPROVED REPORT EXAM: LIMITED Two-dimensional and M-mode echocardiogram with Doppler and color Doppler. Blood Pressure: 144/77 mmHg INDICATION Evaluate cardiac function RISK FACTORS Height: 5' 10", Weight: 117 DIMENSIONS LVDd3.9 (3.8-5.7cm)LA (2D)3.5 (1.9-4.0cm)Aortic Root3.0 (2.0-3.7cm) LVDs3.0 (2.5-4.0cm)LA (MM) (1.9-4.0cm)Aortic Cusp Exc1.7 (1.5-2.0cm) EF (%) 47.0 (55-70%)Rt. Atrium3.6 (1.9-4.0cm)Asc. Aorta cm IVSd1.1 (0.7-1.1cm)RV (D) (1.8-2.4cm) PWd1.2 (0.7-1.1cm) Mitral Valve MitralMitral Stenosis E wave0.50m/sMV Mean GR.mmHg A wave0.80m/sMV Peak GR.mmHg E/A ratio0.62D MVAcm2 Aortic Valve Aortic ValveAortic Stenosis V10.90m/Lucille Mean GR.2mmHg V20.80m/Lucille Peak GR.3mmHg LVOT Diameter2.2 (1.8-2.4cm)Doppler AVA4.27cm2 Conclusion lvef 45% mild LVH normal rv function mild mitral regurg no severe valve abnormalities noted
--- NOTE | 2025-01-11 14:36 | DVHPNRES ---
Progress Note Date Seen: Jan 11, 2025 Resident Creating Document: VENECIA FENTON RESIDENT Has the PT tested + for MRSA If YES, has PT been informed?: No Medical Necessity Reason Pt with a Central, PICC or Fol: No Subjective Review of Systems This is an 79-year-old male with past medical history of hypertension, diabetes mellitus, chronic back pain, dementia, atrial fibrillation, COPD and diastolic dysfunction, he uses home oxygen on 2 L. He presented with shortness of breath. Patient had one-week history of worsening shortness for breath with associated cough and sputum. Reports loss of appetite. Sputum is productive, yellow in color. On arrival patient was noted to be saturating in the 80s. Patient presented with tachycardia, tachypnea, hypertension, hyperglycemia. Negative history of fever, chills, burning micturition, chest pain, orthopnea, recent sick contact. He was admitted in May 2024 for pneumonia for which he received antibiotics. Patient is cachectic and looks weak and states very minimal discomfort at the abdominal region. Patient denied fever/chills, chest pain, shortness of breath or any other associated symptoms. Patient is currently back on 2 L of oxygen through nasal cannula which is currently his baseline. CT of the abdomen and pelvis with contrast showed wall thickening at the level of the colon. Tele monitor was reviewed and patient is on sinus rhythm with recurrent PACs and PVCs which makes it irregular. Cardiology was consulted for preoperative clearance and AFib with RVR control. They recommended to switch patient to p.o. amiodarone and consider anticoagulation. We will wait for EGD and colonoscopy to be done and afterward we will start anticoagulation. 01/11/25: Patient's condition has been improving. Cardiology has cleared him for EGD and colonoscopy. ROS Constitutional: Cachexia. Denies fever and chills. HEENT: Denies changes in vision and hearing. Respiratory: Improvement in shortness of breath and cough Cardiovascular: Denies chest discomfort or palpitations GI: Reports mild abdominal discomfort. Denies nausea, vomiting or constipation. : Denies dysuria and urinary frequency. Musculoskeletal: Denies myalgias and joint pain Skin: Denies rash and pruritus. Neurological: Denies dizziness, headache, vision or hearing problems Objective vital signs Vital Sign Date Time Temp Pulse Resp B/P (MAP) Pulse Ox O2 Delivery O2 Flow Rate FiO2 01/11/25 12:56 97.5 63 18 139/60 (86) 100 97.5 01/11/25 11:12 Nasal Cannula* 2 28 Total Intake and Output 01/10/25 01/10/25 01/11/25 15:00 23:00 07:00 Intake Total 480 ml 340 ml 915 ml Output Total 800 ml Balance 480 ml -460 ml 915 ml medications Current Medications Medications Dose Ordered Sig/Milena Route Start Time Stop Time Status Last Admin Dose Admin Vancomycin HCl 0 ml @ 0 mls/hr UD IV 01/07/25 21:45 UNV Diagnostic Test (Pha) 1 strip ACHS 01/08/25 07:00 01/11/25 11:30 1 STRIP Insulin Human Regular ACHS SC 01/08/25 07:00 01/11/25 12:26 2 UNITS Dextrose 50 ml UD PRN IV 01/08/25 00:00 Ondansetron HCl 4 mg Q4HP PRN IV 01/08/25 00:00 01/08/25 10:23 4 MG Enoxaparin Sodium 40 mg DAILY SC 01/08/25 10:00 01/08/25 10:23 40 MG Acetaminophen 650 mg Q6HP PRN PO 01/08/25 00:00 Nitroglycerin 0.4 mg Q5MINP PRN SL 01/08/25 00:00 Morphine Sulfate 2 mg Q30M PRN IV 01/08/25 00:00 Acetaminophen/ Hydrocodone Bitart 1 tab Q8HP PRN PO 01/08/25 03:45 Hold 01/08/25 06:41 1 TAB Albuterol 2.5 mg Q6HR NEB 01/08/25 06:00 01/11/25 11:12 2.5 MG Ipratropium [place] 0.5 mg Q6HR NEB 01/08/25 06:00 01/11/25 11:12 0.5 MG Lisinopril 10 mg DAILY PO 01/08/25 10:00 01/11/25 11:02 10 MG Methylprednisolone Sodium Succinate 40 mg DAILY IV 01/09/25 10:00 01/11/25 10:59 40 MG Doxycycline Hyclate 100 ml @ 50 mls/hr Q12HR IV 01/08/25 12:45 01/11/25 11:03 50 MLS/HR Dextrose/Sodium Chloride 1,000 ml @ 75 mls/hr [id number] IV 01/08/25 12:45 01/11/25 07:25 75 MLS/HR Pantoprazole Sodium 40 mg BID IV 01/08/25 22:00 01/11/25 11:04 40 MG Hydralazine HCl 10 mg Q6HP PRN IV 01/08/25 13:30 01/08/25 13:45 10 MG Piperacillin Sod/ Tazobactam Sod 100 ml @ 25 mls/hr Q8HR@0200,1000,1800 IV 01/09/25 02:00 01/11/25 12:12 25 MLS/HR Pregabalin 150 mg BID PO 01/09/25 10:00 01/11/25 12:09 150 MG Amiodarone HCl 200 mg Q12HR PO 01/10/25 22:00 01/11/25 11:00 200 MG Metoprolol Tartrate 12.5 mg BID PO 01/10/25 22:00 01/11/25 11:01 12.5 MG Oxycodone/ Acetaminophen 2 tab Q6HPRN PRN PO 01/10/25 12:45 01/11/25 09:37 2 TAB Potassium Chloride 100 ml @ 50 mls/hr Q2H IV 01/10/25 15:30 01/10/25 19:29 Cancel Examination General: Cachexia. Oriented in person, place and time. HEENT: Normocephalic, atraumatic. Respiratory/pulmonary: Reduced breath sounds. No significant wheezes at this time. Cardiovascular: Irregular heart sounds on auscultation, no associated murmurs Abdomen: Abdomen non tender, sunken. No palpable masses. Extremities: There is no peripheral edema present at the lower extremities. Skin: No rashes or pruritus, there is no sacral edema present at this time. Neurological: Intact cranial nerves with no focal neurologic deficits laboratory and microbiology Laboratory Tests 01/11/25 04:42 Test 01/11/25 04:42 Range/Units Serum Glucose 108 H 74-106 mg/dL Microbiology Date/Time Source Procedure Growth Status 01/08/25 01:10 Nose MRSA Screen - Final Complete 01/07/25 20:13 Blood Blood Culture - Preliminary NO GROWTH AFTER 72 HOURS OF INCUBATION. Resulted Problem List/Assessment/Plan Problem List/Assessment/Plan 1. Sepsis due to pneumonia, Gram-negative, Gram positive, possibly 2. Acute exacerbation of COPD 3. Acute on chronic hypoxic respiratory failure 4. Leukocytosis 5. Lactic acidosis - Chest x-ray shows diffuse pulmonary interstitial opacities and pleural effusions bilaterally - Influenza and SARS-CoV-2 negative - Ordered sputum culture. Blood culture negative. MRSA screen negative. - Currently on IV vancomycin and Zosyn. Previously switched vancomycin to IV doxycycline 100 mg b.i.d.. to cover atypical as well - Continue ipratropium bromide, albuterol and methylprednisolone 6. Anemia, Rule out GI bleed 7. GI malignancy, possible - Hb down to 11.3 g/dL. GI consult recommended EGD and colonoscopy. - CT abdomen pelvis with oral contrast shows wall thickening in the ascending colon/ cecum. - Echo shows LVEF 45% with mild LVH. Cardiology cleared him for EGD and colonoscopy. - pressing bowel for EGD and colonoscopy. - We will consider CT IV contrast if normal findings on EGD or colonoscopy 8. Hypokalemia 9. Severely Malnourished - Hypokalemia corrections with IV potassium chloride as needed. - Nutritional consult recommended to encourage p.o. intake and advanced to NCS cardiac diet when medically feasible. - we will continue to monitor and manage 10. Diabetes mellitus type 2, Hyperglycemia - Managed with sliding scale insulin 11. Hypertension - HTN managed with Lisinopril and Hydralazine. 12. Chronic hip pain - Pain management with Percocet. - Continues [place] for pain control as needed. Goals of care discussed with the patient at bedside for > 25 minutes. Full code Plan discussed with Dr. Lopes Plan discussed with: Patient Dietary Evaluation Review Comments: 1) Initiate Ensure Clear tid 2) Encourage optimal PO intake 3) Advance to NCS cardiac diet when medically feasible (liberalize diet d/t underweight and advanced age) 4) Refer to outpatient RD for weight gain 5) Follow-up with cardiology and gastroenterology 6) Continue to monitor I&O, labs, and skin integrity Expected Outcomes/Goals: 1) appetite and labs to improve 2) diet to advance 2) f/u in 2-3 days VENECIA FENTON RESIDENT Jan 11, 2025 14:36
--- NOTE | 2025-01-11 14:42 | DVHPN2 ---
Progress Note - Dictate Date Seen: Jan 11, 2025 Has the PT tested + for MRSA If YES, has PT been informed?: No Medical Necessity Reason Pt with a Central, PICC or Fol: No Subjective Patient apparently has converted to sinus rhythm is on amiodarone drip Mild shortness of breath no nausea vomiting no bleeding CT scan showed possible mass lesion in the ascending colon cecum suspicious for neoplasm Patient cleared for EGD colon by Cardiology this morning vital signs Vital Sign Date Time Temp Pulse Resp B/P (MAP) Pulse Ox O2 Delivery O2 Flow Rate FiO2 01/11/25 12:56 97.5 63 18 139/60 (86) 100 97.5 01/11/25 11:12 Nasal Cannula* 2 28 Total Intake and Output 01/10/25 01/10/25 01/11/25 15:00 23:00 07:00 Intake Total 480 ml 340 ml 915 ml Output Total 800 ml Balance 480 ml -460 ml 915 ml medications Current Medications Medications Dose Ordered Sig/Milena Route Start Time Stop Time Status Last Admin Dose Admin Vancomycin HCl 0 ml @ 0 mls/hr UD IV 01/07/25 21:45 UNV Diagnostic Test (Pha) 1 strip ACHS 01/08/25 07:00 01/11/25 11:30 1 STRIP Insulin Human Regular ACHS SC 01/08/25 07:00 01/11/25 12:26 2 UNITS Dextrose 50 ml UD PRN IV 01/08/25 00:00 Ondansetron HCl 4 mg Q4HP PRN IV 01/08/25 00:00 01/08/25 10:23 4 MG Enoxaparin Sodium 40 mg DAILY SC 01/08/25 10:00 01/08/25 10:23 40 MG Acetaminophen 650 mg Q6HP PRN PO 01/08/25 00:00 Nitroglycerin 0.4 mg Q5MINP PRN SL 01/08/25 00:00 Morphine Sulfate 2 mg Q30M PRN IV 01/08/25 00:00 Acetaminophen/ Hydrocodone Bitart 1 tab Q8HP PRN PO 01/08/25 03:45 Hold 01/08/25 06:41 1 TAB Albuterol 2.5 mg Q6HR NEB 01/08/25 06:00 01/11/25 11:12 2.5 MG Ipratropium [place] 0.5 mg Q6HR NEB 01/08/25 06:00 01/11/25 11:12 0.5 MG Lisinopril 10 mg DAILY PO 01/08/25 10:00 01/11/25 11:02 10 MG Methylprednisolone Sodium Succinate 40 mg DAILY IV 01/09/25 10:00 01/11/25 10:59 40 MG Doxycycline Hyclate 100 ml @ 50 mls/hr Q12HR IV 01/08/25 12:45 01/11/25 11:03 50 MLS/HR Dextrose/Sodium Chloride 1,000 ml @ 75 mls/hr [id number] IV 01/08/25 12:45 01/11/25 07:25 75 MLS/HR Pantoprazole Sodium 40 mg BID IV 01/08/25 22:00 01/11/25 11:04 40 MG Hydralazine HCl 10 mg Q6HP PRN IV 01/08/25 13:30 01/08/25 13:45 10 MG Piperacillin Sod/ Tazobactam Sod 100 ml @ 25 mls/hr Q8HR@0200,1000,1800 IV 01/09/25 02:00 01/11/25 12:12 25 MLS/HR Pregabalin 150 mg BID PO 01/09/25 10:00 01/11/25 12:09 150 MG Amiodarone HCl 200 mg Q12HR PO 01/10/25 22:00 01/11/25 11:00 200 MG Metoprolol Tartrate 12.5 mg BID PO 01/10/25 22:00 01/11/25 11:01 12.5 MG Oxycodone/ Acetaminophen 2 tab Q6HPRN PRN PO 01/10/25 12:45 01/11/25 09:37 2 TAB Potassium Chloride 100 ml @ 50 mls/hr Q2H IV 01/10/25 15:30 01/10/25 19:29 Cancel objective Patient is in atrial fib and amiodarone. Abdomen is soft nontender Cardiology clearance is obtained this morning and okay for the EGD: Colon We will defer to to Dr. Quintero who is on-call tomorrow for the EGD colonoscopy , we will start the bowel prep and hopefully Dr. Quintero can arrange to get it done at her early convenience Thank you Dr. Nixon laboratory and microbiology Laboratory Tests 01/11/25 04:42 Test 01/11/25 04:42 Range/Units Serum Glucose 108 H 74-106 mg/dL Assessment/Plan 79-year-old male with a history of COPD dementia diabetes hypertension admitted with a [place] hematemesis as well as abdominal pain and nausea vomiting and weight loss Abdomen is soft mild nonspecific tenderness in the epigastrium no masses Clinical impression possible diabetic gastroparesis possible dementia and weight loss possible gastric gastroparesis from diabetes or gastric outlet obstruction ulcer or cancer to be ruled out Patient has got high got her cardiac grade we will recommend to await until the cardiac clearance is done in the heart rate is stabilized and then decide on further GI workup if possible. For the time being patient is a high high-risk and hence we will hold off the endoscopic workup until cleared by Cardiology Thank you Dr. Nixon Dietary Evaluation Review Comments: 1) Initiate Ensure Clear tid 2) Encourage optimal PO intake 3) Advance to NCS cardiac diet when medically feasible (liberalize diet d/t underweight and advanced age) 4) Refer to outpatient RD for weight gain 5) Follow-up with cardiology and gastroenterology 6) Continue to monitor I&O, labs, and skin integrity Expected Outcomes/Goals: 1) appetite and labs to improve 2) diet to advance 2) f/u in 2-3 days Plan discussed with: Patient SID NIXON MD Jan 11, 2025 14:42
[2025-01-12] VITALS (17 sets, daily range): BP systolic 99–153; BP diastolic 43–86; PULSE 52–96; RESP 16–20; TEMP 97.5–98.3; O2SAT 91–100
[2025-01-12 06:25] LABS: Hematocrit 37.7 % (41.0-53.0); Hemoglobin 12.2 g/dL (13.5-17.5); INR 1.11 (0.9-1.15); Mean Corpuscular Hemoglobin 27.0 pg (28.0-32.0); Mean Corpuscular Volume 83.4 fL (80.0-100.0); Nucleated Red Blood Cells % 0.0 %; Partial Thromboplastin Time 30.5 SEC (24.5-34.5); Prothrombin Time 11.6 sec (9.3-11.8)
[2025-01-12 06:30] LABS: Alanine Aminotransferase 11 U/L (7-40); Alkaline Phosphatase 61 U/L (46-116); Anion Gap 11 (5-15); BUN/Creatinine Ratio 16.9 (10.0-20.0); Blood Urea Nitrogen 12 mg/dL (9-23); Calcium 9.8 mg/dL (8.7-10.4); Carbon Dioxide 29 mmol/L (20-31); Chloride 100 mmol/L (98-107); Potassium 4.7 mmol/L (3.5-5.1); Sodium 140 mmol/L (136-145); Total Protein 6.3 g/dL (5.7-8.2)
[2025-01-12 06:32] LABS: Albumin 3.3 g/dL (3.2-4.8); Bilirubin, Total 0.4 mg/dL (0.2-1.0)
[2025-01-12 06:35] LABS: Glucose 145 mg/dL (74-106)
--- NOTE | 2025-01-12 07:18 | ECG ---
[facility] Test Date: 2025-01-08 Test Time: 20:35:26 Pat Name: CLAUDE MENDEZ Department: Room: 0287T B Gender: M [employer]: KIRAN : 1945 Requested By: SONY KNOWLES Order Number: [id number] Reading MD: Bret Reyes Measurements Intervals [place] Rate: 133 P: 0 [place]: 0 QRS: 68 QRSD: 86 T: 57 QT: 342 QTc: 509 Interpretive Statements Atrial fibrillation Abnormal R-wave progression, early transition Probable LVH with secondary repol abnrm ST depression, probably rate related Prolonged QT interval Electronically Signed On 01-15-2025 19:14:10 PDT by Bret Reyes Please click the below link to view image of tracing.
--- NOTE | 2025-01-12 08:13 | DVH ---
CHEST RADIOGRAPH Indication: For procedure Technique: Single frontal view of the chest was obtained Comparison: XY CHEST PORTABLE on DOS: 01/07/25 FINDINGS: Lines and Tubes: None Lungs: Elevated right hemidiaphragm. Scattered bilateral opacities. Pleura: No effusion. No pneumothorax. Cardiomediastinal contours: Unremarkable Bones: No acute osseous abnormality. IMPRESSION: 1. Scattered bilateral opacities which may be infectious or inflammatory in etiology.
--- NOTE | 2025-01-12 13:14 | DVHPNRES ---
Progress Note Date Seen: Jan 12, 2025 Resident Creating Document: VENECIA FENTON RESIDENT Has the PT tested + for MRSA If YES, has PT been informed?: No Medical Necessity Reason Pt with a Central, PICC or Fol: No Subjective Review of Systems This is an 79-year-old male with past medical history of hypertension, diabetes mellitus, chronic back pain, dementia, atrial fibrillation, COPD and diastolic dysfunction, he uses home oxygen on 2 L. He presented with shortness of breath. Patient had one-week history of worsening shortness for breath with associated cough and sputum. Reports loss of appetite. Sputum is productive, yellow in color. On arrival patient was noted to be saturating in the 80s. Patient presented with tachycardia, tachypnea, hypertension, hyperglycemia. Negative history of fever, chills, burning micturition, chest pain, orthopnea, recent sick contact. He was admitted in May 2024 for pneumonia for which he received antibiotics. Patient seen and examined at bedside. Patient is cachectic and looks weak and states very minimal discomfort at the abdominal region. Patient denied fever/chills, chest pain, shortness of breath or any other associated symptoms. Patient is currently back on 2 L of oxygen through nasal cannula which is currently his baseline. CT of the abdomen and pelvis with contrast showed wall thickening at the level of the colon with an underlying mass could not be excluded. Tele monitor was reviewed and patient is on sinus rhythm with recurrent PACs and PVCs which makes it irregular. Cardiology was consulted for preoperative clearance and AFib with RVR control. They recommended to switch patient to p.o. amiodarone and consider anticoagulation. We will wait for EGD and colonoscopy to be done and afterward we will start anticoagulation. 01/09/25. Patient seen and examined at bedside. Patient has started liquid diet yesterday and denies nausea o vomiting, today will continue with full liquid diet and re-assess tolerance. Vital signs were reviewed, there is no fever or chills overnight. Potassium are 3.1mmol/L this morning, potassium 60 meq was ordered. 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 01/10/25 Patient seen and examined at bedside. Patient has started liquid diet yesterday and denies nausea o vomiting, today will continue with mechanical soft diet and re-assess tolerance. Vancomycin was stopped today. Vital signs were reviewed, there is no fever or chills overnight, patiente is felling well, he had a BM yesterday night and today morning. Potassium was 2.6 mmol/L this morning, potassium 60 meq was ordered. K and Mg will be re-checked. 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 ROS Constitutional: Denies weight loss, fever and chills. HEENT: Denies changes in vision and hearing. Respiratory: Denies shortness of breath and cough Cardiovascular: Denies chest discomfort or palpitations GI: No abdominal pain, distention has improved. : Denies dysuria and urinary frequency. Musculoskeletal: Denies myalgias and joint pain. Skin: Denies rash and pruritus. Neurological: Denies dizziness, headache, vision or hearing problems. Objective vital signs Vital Sign Date Time Temp Pulse Resp B/P (MAP) Pulse Ox O2 Delivery O2 Flow Rate FiO2 01/12/25 12:34 97.8 71 16 153/71 (98) 93 97.8 01/12/25 11:02 Nasal Cannula 2.0 01/12/25 11:02 28 Total Intake and Output 01/11/25 01/11/25 01/12/25 15:00 23:00 07:00 Intake Total 300 ml 1450 ml 1020 ml Output Total 1000 ml Balance 300 ml 1450 ml 20 ml medications Current Medications Medications Dose Ordered Sig/Milena Route Start Time Stop Time Status Last Admin Dose Admin Vancomycin HCl 0 ml @ 0 mls/hr UD IV 01/07/25 21:45 UNV Diagnostic Test (Pha) 1 strip ACHS 01/08/25 07:00 01/12/25 11:17 1 STRIP Insulin Human Regular ACHS SC 01/08/25 07:00 01/11/25 22:40 8 UNITS Dextrose 50 ml UD PRN IV 01/08/25 00:00 Ondansetron HCl 4 mg Q4HP PRN IV 01/08/25 00:00 01/08/25 10:23 4 MG Enoxaparin Sodium 40 mg DAILY SC 01/08/25 10:00 01/08/25 10:23 40 MG Acetaminophen 650 mg Q6HP PRN PO 01/08/25 00:00 Nitroglycerin 0.4 mg Q5MINP PRN SL 01/08/25 00:00 Morphine Sulfate 2 mg Q30M PRN IV 01/08/25 00:00 Acetaminophen/ Hydrocodone Bitart 1 tab Q8HP PRN PO 01/08/25 03:45 Hold 01/08/25 06:41 1 TAB Albuterol 2.5 mg Q6HR NEB 01/08/25 06:00 01/12/25 11:02 2.5 MG Ipratropium [place] 0.5 mg Q6HR NEB 01/08/25 06:00 01/12/25 11:02 0.5 MG Lisinopril 10 mg DAILY PO 01/08/25 10:00 01/11/25 11:02 10 MG Methylprednisolone Sodium Succinate 40 mg DAILY IV 01/09/25 10:00 01/12/25 12:37 40 MG Doxycycline Hyclate 100 ml @ 50 mls/hr Q12HR IV 01/08/25 12:45 01/12/25 12:37 50 MLS/HR Dextrose/Sodium Chloride 1,000 ml @ 75 mls/hr [id number] IV 01/08/25 12:45 01/12/25 10:05 75 MLS/HR Pantoprazole Sodium 40 mg BID IV 01/08/25 22:00 01/12/25 12:37 40 MG Hydralazine HCl 10 mg Q6HP PRN IV 01/08/25 13:30 01/08/25 13:45 10 MG Piperacillin Sod/ Tazobactam Sod 100 ml @ 25 mls/hr Q8HR@0200,1000,1800 IV 01/09/25 02:00 01/12/25 01:32 25 MLS/HR Pregabalin 150 mg BID PO 01/09/25 10:00 01/12/25 09:33 150 MG Amiodarone HCl 200 mg Q12HR PO 01/10/25 22:00 01/12/25 09:37 200 MG Metoprolol Tartrate 12.5 mg BID PO 01/10/25 22:00 01/12/25 09:38 12.5 MG Oxycodone/ Acetaminophen 2 tab Q6HPRN PRN PO 01/10/25 12:45 01/12/25 05:33 2 TAB Potassium Chloride 100 ml @ 50 mls/hr Q2H IV 01/10/25 15:30 01/10/25 19:29 Cancel laboratory and microbiology Laboratory Tests 01/12/25 05:17 Test 01/12/25 05:17 Range/Units Serum Glucose 145 H 74-106 mg/dL Microbiology Date/Time Source Procedure Growth Status 01/08/25 01:10 Nose MRSA Screen - Final Complete 01/07/25 20:13 Blood Blood Culture - Preliminary NO GROWTH AFTER 72 HOURS OF INCUBATION. Resulted Problem List/Assessment/Plan Problem List/Assessment/Plan 1. Sepsis due to pneumonia, Gram-negative, Gram positive, possibly 2. Acute exacerbation of COPD 3. Acute on chronic hypoxic respiratory failure 4. Leukocytosis 5. Lactic acidosis - Chest x-ray shows diffuse pulmonary interstitial opacities and pleural effusions bilaterally - Influenza and SARS-CoV-2 negative - Ordered sputum culture. Blood culture negative. MRSA screen negative. - Currently on IV vancomycin and Zosyn. Previously switched vancomycin to IV doxycycline 100 mg b.i.d.. to cover atypical as well - Continue ipratropium bromide, albuterol and methylprednisolone 6. Anemia, Rule out GI bleed 7. GI malignancy, possible - Hb down to 11.3 g/dL. GI consult recommended EGD and colonoscopy. - CT abdomen pelvis with oral contrast shows wall thickening in the ascending colon/ cecum. - Echo shows LVEF 45% with mild LVH. Cardiology cleared him for EGD and colonoscopy. - pressing bowel for EGD and colonoscopy. - We will consider CT IV contrast if normal findings on EGD or colonoscopy 8. Hypokalemia 9. Severely Malnourished - Hypokalemia corrections with IV potassium chloride as needed. - Nutritional consult recommended to encourage p.o. intake and advanced to NCS cardiac diet when medically feasible. - we will continue to monitor and manage 10. Diabetes mellitus type 2, Hyperglycemia - Managed with sliding scale insulin 11. Hypertension - HTN managed with Lisinopril and Hydralazine. 12. Chronic hip pain - Pain management with Percocet. - Continues [place] for pain control as needed. Goals of care discussed with the patient at bedside for > 25 minutes. Full code Plan discussed with Dr. Lopes Dietary Evaluation Review Comments: 1) Initiate Ensure Clear tid 2) Encourage optimal PO intake 3) Advance to NCS cardiac diet when medically feasible (liberalize diet d/t underweight and advanced age) 4) Refer to outpatient RD for weight gain 5) Follow-up with cardiology and gastroenterology 6) Continue to monitor I&O, labs, and skin integrity Expected Outcomes/Goals: 1) appetite and labs to improve 2) diet to advance 2) f/u in 2-3 days VENECIA FENTON RESIDENT Jan 12, 2025 13:14
--- NOTE | 2025-01-12 13:56 | DVHPNRES ---
Progress Note Date Seen: Jan 12, 2025 Resident Creating Document: VENECIA FENTON RESIDENT Has the PT tested + for MRSA If YES, has PT been informed?: No Medical Necessity Reason Pt with a Central, PICC or Fol: No Subjective Review of Systems This is an 79-year-old male with past medical history of hypertension, diabetes mellitus, chronic back pain, dementia, atrial fibrillation, COPD and diastolic dysfunction, he uses home oxygen on 2 L. He presented with shortness of breath. Patient had one-week history of worsening shortness for breath with associated cough and sputum. Reports loss of appetite. Sputum is productive, yellow in color. On arrival patient was noted to be saturating in the 80s. Patient presented with tachycardia, tachypnea, hypertension, hyperglycemia. Negative history of fever, chills, burning micturition, chest pain, orthopnea, recent sick contact. He was admitted in May 2024 for pneumonia for which he received antibiotics. Patient is cachectic and looks weak and states very minimal discomfort at the abdominal region. Patient denied fever/chills, chest pain, shortness of breath or any other associated symptoms. Patient is currently back on 2 L of oxygen through nasal cannula which is currently his baseline. CT of the abdomen and pelvis with contrast showed wall thickening at the level of the colon. Tele monitor was reviewed and patient is on sinus rhythm with recurrent PACs and PVCs which makes it irregular. Cardiology was consulted for preoperative clearance and AFib with RVR control. 01/12/25: Patient seen at bedside. Going for EGD today. Tomorrow NPO and bowel prep for Colonoscopy. Constitutional: Cachexia. Denies fever and chills. HEENT: Denies changes in vision and hearing. Respiratory: Improvement in shortness of breath and cough Cardiovascular: Denies chest discomfort or palpitations GI: Reports mild abdominal discomfort. Denies nausea, vomiting or constipation. : Denies dysuria and urinary frequency. Musculoskeletal: Denies myalgias and joint pain Skin: Denies rash and pruritus. Neurological: Denies dizziness, headache, vision or hearing problems Objective vital signs Vital Sign Date Time Temp Pulse Resp B/P (MAP) Pulse Ox O2 Delivery O2 Flow Rate FiO2 01/12/25 12:34 97.8 71 16 153/71 (98) 93 97.8 01/12/25 11:02 Nasal Cannula 2.0 01/12/25 11:02 28 Total Intake and Output 01/11/25 01/11/25 01/12/25 15:00 23:00 07:00 Intake Total 300 ml 1450 ml 1020 ml Output Total 1000 ml Balance 300 ml 1450 ml 20 ml medications Current Medications Medications Dose Ordered Sig/Milena Route Start Time Stop Time Status Last Admin Dose Admin Vancomycin HCl 0 ml @ 0 mls/hr UD IV 01/07/25 21:45 UNV Diagnostic Test (Pha) 1 strip ACHS 01/08/25 07:00 01/12/25 11:17 1 STRIP Insulin Human Regular ACHS SC 01/08/25 07:00 01/11/25 22:40 8 UNITS Dextrose 50 ml UD PRN IV 01/08/25 00:00 Ondansetron HCl 4 mg Q4HP PRN IV 01/08/25 00:00 01/08/25 10:23 4 MG Enoxaparin Sodium 40 mg DAILY SC 01/08/25 10:00 01/08/25 10:23 40 MG Acetaminophen 650 mg Q6HP PRN PO 01/08/25 00:00 Nitroglycerin 0.4 mg Q5MINP PRN SL 01/08/25 00:00 Morphine Sulfate 2 mg Q30M PRN IV 01/08/25 00:00 Acetaminophen/ Hydrocodone Bitart 1 tab Q8HP PRN PO 01/08/25 03:45 Hold 01/08/25 06:41 1 TAB Albuterol 2.5 mg Q6HR NEB 01/08/25 06:00 01/12/25 11:02 2.5 MG Ipratropium [place] 0.5 mg Q6HR NEB 01/08/25 06:00 01/12/25 11:02 0.5 MG Lisinopril 10 mg DAILY PO 01/08/25 10:00 01/11/25 11:02 10 MG Methylprednisolone Sodium Succinate 40 mg DAILY IV 01/09/25 10:00 01/12/25 12:37 40 MG Doxycycline Hyclate 100 ml @ 50 mls/hr Q12HR IV 01/08/25 12:45 01/12/25 12:37 50 MLS/HR Dextrose/Sodium Chloride 1,000 ml @ 75 mls/hr [id number] IV 01/08/25 12:45 01/12/25 10:05 75 MLS/HR Pantoprazole Sodium 40 mg BID IV 01/08/25 22:00 01/12/25 12:37 40 MG Hydralazine HCl 10 mg Q6HP PRN IV 01/08/25 13:30 01/08/25 13:45 10 MG Piperacillin Sod/ Tazobactam Sod 100 ml @ 25 mls/hr Q8HR@0200,1000,1800 IV 01/09/25 02:00 01/12/25 01:32 25 MLS/HR Pregabalin 150 mg BID PO 01/09/25 10:00 01/12/25 09:33 150 MG Amiodarone HCl 200 mg Q12HR PO 01/10/25 22:00 01/12/25 09:37 200 MG Metoprolol Tartrate 12.5 mg BID PO 01/10/25 22:00 01/12/25 09:38 12.5 MG Oxycodone/ Acetaminophen 2 tab Q6HPRN PRN PO 01/10/25 12:45 01/12/25 05:33 2 TAB Potassium Chloride 100 ml @ 50 mls/hr Q2H IV 01/10/25 15:30 01/10/25 19:29 Cancel Examination General: Cachectic. Patient alert and oriented in person, place and time. Patient following commands. HEENT: Normocephalic, atraumatic, moist mucous membranes Respiratory/pulmonary: Clear lungs bilaterally, moving, reduced breath sounds. No associated crackles or wheezes. Cardiovascular: Normal heart sounds S1 and S2 with no associated murmurs Abdomen: Abdomen nondistended, there is no pain to palpation in any of the abdominal quadrants, no palpable masses. Extremities: There is no peripheral edema present at the lower extremities. Skin: No rashes or pruritus, there is no sacral edema present at this time. Neurological: Intact cranial nerves with no focal neurologic deficits laboratory and microbiology Laboratory Tests 01/12/25 05:17 Test 01/12/25 05:17 Range/Units Serum Glucose 145 H 74-106 mg/dL Microbiology Date/Time Source Procedure Growth Status 01/08/25 01:10 Nose MRSA Screen - Final Complete 01/07/25 20:13 Blood Blood Culture - Preliminary NO GROWTH AFTER 72 HOURS OF INCUBATION. Resulted Problem List/Assessment/Plan Problem List/Assessment/Plan 1. Sepsis due to pneumonia, Gram-negative, Gram positive, possibly 2. Acute exacerbation of COPD 3. Acute on chronic hypoxic respiratory failure 4. Leukocytosis 5. Lactic acidosis - Chest x-ray shows diffuse pulmonary interstitial opacities and pleural effusions bilaterally - Influenza and SARS-CoV-2 negative - Ordered sputum culture. Blood culture negative. MRSA screen negative. - Currently on IV vancomycin and Zosyn. Previously switched vancomycin to IV doxycycline 100 mg b.i.d.. to cover atypical as well - Continue ipratropium bromide, albuterol and methylprednisolone 6. Anemia, Rule out GI bleed 7. GI malignancy, possible - Hb down to 11.3 g/dL. GI consult recommended EGD and colonoscopy. - CT abdomen pelvis with oral contrast shows wall thickening in the ascending colon/ cecum. - Echo shows LVEF 45% with mild LVH. Cardiology cleared him for EGD and colonoscopy. - Going for EGD today. Scheduled for colonoscopy tomorrow, we will do bowel prep. - We will consider CT IV contrast if normal findings on EGD or colonoscopy 8. Hypokalemia 9. Severely Malnourished - Hypokalemia corrections with IV potassium chloride as needed. - Nutritional consult recommended to encourage p.o. intake and advanced to NCS cardiac diet when medically feasible. - We will continue to monitor and manage 10. Diabetes mellitus type 2, Hyperglycemia - Managed with sliding scale insulin 11. Hypertension - HTN managed with Lisinopril and Hydralazine. 12. Chronic hip pain - Pain management with Percocet. - Continues [place] for pain control as needed. Goals of care discussed with the patient at bedside for > 25 minutes. Full code Plan discussed with Dr. Lopes Plan discussed with: Patient Dietary Evaluation Review Comments: 1) Initiate Ensure Clear tid 2) Encourage optimal PO intake 3) Advance to NCS cardiac diet when medically feasible (liberalize diet d/t underweight and advanced age) 4) Refer to outpatient RD for weight gain 5) Follow-up with cardiology and gastroenterology 6) Continue to monitor I&O, labs, and skin integrity Expected Outcomes/Goals: 1) appetite and labs to improve 2) diet to advance 2) f/u in 2-3 days VENECIA FENTON RESIDENT Jan 12, 2025 13:56
[2025-01-12] MEDS ORDERED: PROPOFOL 10 MG/ML 20 ML IV ONE (14:26)
[2025-01-12] MEDS ORDERED: fentaNYL CITRATE 100 MCG/2 ML VL ONE (14:26)
[2025-01-12] MEDS ORDERED: GLYCOPYRROLATE 0.2 MG/ML 1ML VIAL ONE (14:26)
[2025-01-12] MEDS ORDERED: MIDAZOLAM HCL 2MG/2ML 2ml VIAL (1mg/ml) ONE (14:26)
[2025-01-12] MEDS ORDERED: LIDOCAINE 2% (LOCAL ANESTH.) PF 5ml SDV ONE (14:26)
[2025-01-12] MEDS ORDERED: ONDANSETRON HCL 4 MG/2 ML VIAL ONE (14:26)
--- NOTE | 2025-01-12 15:51 | DVHOP2 ---
Operative Report DATE OF OPERATION: 01/12/25 PROCEDURE: Upper Endoscopy with biopsy. PREOPERATIVE INDICATION: The patient is a 79 -year-old male undergoing endoscopy for history of nausea vomiting and coffee-ground emesis POSTOPERATIVE DIAGNOSES: 1. Mild candidal esophagitis with some whitish yellowish plaques and some oral thrush 2. 1 cm sliding-type hiatal hernia with irregular squamocolumnar junction and grade a erosive esophagitis 3. Mild gastritis otherwise normal examination up to the 2nd and 3rd part of the duodenal with good bile drainage and no active bleeding PROCEDURE PERFORMED BY: Jaimee Quintero GI NURSE: Martha SCOPE: Olympus videoendoscope. ASA CLASS: 3. PREOPERATIVE MEDICATIONS: Mac sedation, Dr. Sevilla PROCEDURE IN DETAIL: After obtaining an informed consent, the patient was placed on left lateral decubitus position. The patient was then sedated with the above medications. A bite block was placed between his teeth. The endoscope was then passed through the oropharynx, into the esophagus, and through the stomach and pylorus up to the second and third part of the duodenum. The endoscope was then withdrawn. And 3rd part of the duodenal and the duodenal bulb were normal. Duodenal biopsies were obtained The pre-pyloric area and antrum showed mild gastritis. Gastric biopsies were obtained On retroflexion the fundus cardia and angularis were normal. The endoscope was then withdrawn into distal esophagus Patient had a 1 cm sliding-type hiatal hernia with slightly irregular squamocolumnar junction grade a erosive esophagitis GE junction and esophageal biopsies were obtained as the patient had evidence of mild candidal esophagitis with some whitish plaques more prominent in the proximal esophagus The patient also had mild oral thrush. The endoscope was then withdrawn The patient tolerated the procedure well without difficulty. COMPLICATIONS : None SPECIMENS: Duodenum Biopsy Gastric biopsy Esophageal biopsies DISPOSITION: Transfer back to the floor D/C to home PLAN: 1. Await for biopsy result 2. Will place pt on Protonix 40 mg bid 3. Carafate suspension 1 g p.o. twice a day 4. Nystatin swish and swallow 5 mL p.o. three times a day 5. Bowel prep tonight and scheduled for colonoscopy on 01/13/25 JAIMEE QUINTERO MD Jan 12, 2025 15:51
[2025-01-12] MEDS: GOLYTELY 4L KIT PO ONE (17:57)
[2025-01-12] MEDS: NYSTATIN (MOUTH-THROAT) 500,000 UNITS/5 ML SUSP MT SCH (18:59)
[2025-01-12] MEDS: SUCRALFATE 1 GM/10 ML ORAL SUSP PO SCH (22:22)
[2025-01-13] VITALS (18 sets, daily range): BP systolic 111–161; BP diastolic 52–89; PULSE 58–92; RESP 12–19; TEMP 97.4–97.9; O2SAT 91–100
[2025-01-13] MEDS: MAGNESIUM CITRATE SOLUTION 300 ML BTL PO ONE ×2 (04:59→17:55)
[2025-01-13] MEDS: GOLYTELY 4L KIT PO ONE ×2 (05:08→17:55)
--- NOTE | 2025-01-13 07:21 | ECG ---
[facility] Test Date: 2025-01-10 Test Time: 10:29:36 Pat Name: CLAUDE MENDEZ Department: Room: 0287T B Gender: M Board Member: DENISE : 1945 Requested By: SID NIXON Order Number: [id number] Reading MD: Bret Reyes Measurements Intervals [place] Rate: 78 P: 44 IN: 140 QRS: 65 QRSD: 90 T: 83 QT: 455 QTc: 519 Interpretive Statements Sinus rhythm Ventricular premature complex Prolonged QT interval Electronically Signed On 01-15-2025 19:15:23 PDT by Bret Reyes Please click the below link to view image of tracing.
[2025-01-13] MEDS ORDERED: PROPOFOL 10 MG/ML 20 ML IV ONE (14:37)
--- NOTE | 2025-01-13 15:02 | DVHOP2 ---
Operative Report DATE OF OPERATION: 01/13/25 PROCEDURE: Incomplete colonoscopy/flexible sigmoidoscopy PREOPERATIVE INDICATION: The patient is a 79 -year-old male undergoing colonoscopy for abnormal finding GI tract imaging suspicious for ascending colon mass POSTOPERATIVE DIAGNOSES: 1. Patient had a very poor prep and therefore the procedure could not be completed or terminal slight 2. Grossly normal sigmoidoscopy up to 20 cm but limited exam due to poor prep PROCEDURE PERFORMED BY: Jaimee Quintero M.D. SCOPE: Olympus videocolonoscope. ASA CLASS: 3. PREOPERATIVE MEDICATIONS: Adrian Robertsno PROCEDURE IN DETAIL: After obtaining an informed consent, the patient was placed on left lateral decubitus position. He was then sedated with the above medications. A rectal examination was performed that was normal. The colonoscope was then passed through the anus into the rectosigmoid The patient had a very poor prep with a large amount of thick liquid greenish stool in the colon that Was happening visualization of the colon. The colonoscope was then withdrawn. The patient tolerated the procedure well without difficulty. WITHDRAWAL TIME: Not applicable QUALITY OF THE PREP: [place] Bowel Prep score: Not applicable COMPLICATIONS : None SPECIMENS: None DISPOSITION: Transfer back to the floor Stable PLAN: 1. Repeat colonoscopy tomorrow after further attempts at a bowel prep 2. Resume clear liquid diet 3. Discussed with nurse and patient JAIMEE QUINTERO MD Jan 13, 2025 15:02
--- NOTE | 2025-01-13 18:11 | DVHPNRES ---
Progress Note Date Seen: Jan 13, 2025 Resident Creating Document: VENECIA FENTON RESIDENT Has the PT tested + for MRSA If YES, has PT been informed?: No Medical Necessity Reason Pt with a Central, PICC or Fol: No Subjective Review of Systems This is an 79-year-old male with past medical history of hypertension, diabetes mellitus, chronic back pain, dementia, atrial fibrillation, COPD and diastolic dysfunction, he uses home oxygen on 2 L. He presented with shortness of breath. Patient had one-week history of worsening shortness for breath with associated cough and sputum. Reports loss of appetite. Sputum is productive, yellow in color. On arrival patient was noted to be saturating in the 80s. Patient presented with tachycardia, tachypnea, hypertension, hyperglycemia. Negative history of fever, chills, burning micturition, chest pain, orthopnea, recent sick contact. He was admitted in May 2024 for pneumonia for which he received antibiotics. Patient is cachectic and looks weak and states very minimal discomfort at the abdominal region. Patient denied fever/chills, chest pain, shortness of breath or any other associated symptoms. Patient is currently back on 2 L of oxygen through nasal cannula which is currently his baseline. CT of the abdomen and pelvis with contrast showed wall thickening at the level of the colon. Tele monitor was reviewed and patient is on sinus rhythm with recurrent PACs and PVCs which makes it irregular. Cardiology was consulted for preoperative clearance and AFib with RVR control. 01/12/25: Patient seen at bedside. Going for EGD today. Tomorrow NPO and bowel prep for Colonoscopy. 01/13/25: Patient evaluated at bedside. No new complaints. EGD showed mild Gwendolyn esophagitis, oral thrush. Sliding hiatal hernia with an irregular squamocolumnar junction, erosive esophagitis and mild gastritis. Nystatin swish and swallow given. Patient went in for colonoscopy today. Procedure not performed due to poor prep. Sigmoidoscopy done, no abnormality seen. Constitutional: Cachexia. Denies fever and chills. HEENT: Denies changes in vision and hearing. Respiratory: Improvement in shortness of breath and cough Cardiovascular: Denies chest discomfort or palpitations GI: Reports mild abdominal discomfort. Denies nausea, vomiting or constipation. : Denies dysuria and urinary frequency. Musculoskeletal: Denies myalgias and joint pain Skin: Denies rash and pruritus. Neurological: Denies dizziness, headache, vision or hearing problems Objective vital signs Vital Sign Date Time Temp Pulse Resp B/P (MAP) Pulse Ox O2 Delivery O2 Flow Rate FiO2 01/13/25 16:48 97.8 58 17 118/89 (99) 92 97.8 01/13/25 14:45 Mask 6.0 100 Total Intake and Output 01/12/25 01/12/25 01/13/25 15:00 23:00 07:00 Intake Total 10 ml 250 ml 800 ml Output Total 1200 ml Balance 10 ml -950 ml 800 ml medications Current Medications Medications Dose Ordered Sig/Milena Route Start Time Stop Time Status Last Admin Dose Admin Vancomycin HCl 0 ml @ 0 mls/hr UD IV 01/07/25 21:45 UNV Diagnostic Test (Pha) 1 strip ACHS 01/08/25 07:00 01/13/25 17:00 1 STRIP Insulin Human Regular ACHS SC 01/08/25 07:00 01/13/25 18:00 10 UNITS Dextrose 50 ml UD PRN IV 01/08/25 00:00 Ondansetron HCl 4 mg Q4HP PRN IV 01/08/25 00:00 01/08/25 10:23 4 MG Enoxaparin Sodium 40 mg DAILY SC 01/08/25 10:00 01/08/25 10:23 40 MG Acetaminophen 650 mg Q6HP PRN PO 01/08/25 00:00 Nitroglycerin 0.4 mg Q5MINP PRN SL 01/08/25 00:00 Morphine Sulfate 2 mg Q30M PRN IV 01/08/25 00:00 Acetaminophen/ Hydrocodone Bitart 1 tab Q8HP PRN PO 01/08/25 03:45 Hold 01/08/25 06:41 1 TAB Albuterol 2.5 mg Q6HR NEB 01/08/25 06:00 01/13/25 12:33 2.5 MG Ipratropium [place] 0.5 mg Q6HR NEB 01/08/25 06:00 01/13/25 12:33 0.5 MG Lisinopril 10 mg DAILY PO 01/08/25 10:00 01/13/25 10:45 10 MG Methylprednisolone Sodium Succinate 40 mg DAILY IV 01/09/25 10:00 01/13/25 10:44 40 MG Doxycycline Hyclate 100 ml @ 50 mls/hr Q12HR IV 01/08/25 12:45 01/13/25 11:12 50 MLS/HR Dextrose/Sodium Chloride 1,000 ml @ 75 mls/hr [id number] IV 01/08/25 12:45 01/13/25 01:41 75 MLS/HR Pantoprazole Sodium 40 mg BID IV 01/08/25 22:00 01/13/25 10:44 40 MG Hydralazine HCl 10 mg Q6HP PRN IV 01/08/25 13:30 01/08/25 13:45 10 MG Piperacillin Sod/ Tazobactam Sod 100 ml @ 25 mls/hr Q8HR@0200,1000,1800 IV 01/09/25 02:00 01/13/25 02:57 25 MLS/HR Pregabalin 150 mg BID PO 01/09/25 10:00 01/13/25 10:45 150 MG Amiodarone HCl 200 mg Q12HR PO 01/10/25 22:00 01/13/25 10:44 200 MG Metoprolol Tartrate 12.5 mg BID PO 01/10/25 22:00 01/13/25 10:46 12.5 MG Oxycodone/ Acetaminophen 2 tab Q6HPRN PRN PO 01/10/25 12:45 01/13/25 11:08 2 TAB Potassium Chloride 100 ml @ 50 mls/hr Q2H IV 01/10/25 15:30 01/10/25 19:29 Cancel Sucralfate 1 gm BID@0600,2200 PO 01/12/25 22:00 01/12/25 22:22 1 GM Nystatin 5 ml QID MT 01/12/25 18:00 01/13/25 17:55 5 ML Examination General: Cachectic. Patient alert and oriented in person, place and time. Patient following commands. HEENT: Normocephalic, atraumatic, moist mucous membranes Respiratory/pulmonary: Clear lungs bilaterally, moving, reduced breath sounds. No associated crackles or wheezes. Cardiovascular: Normal heart sounds S1 and S2 with no associated murmurs Abdomen: Abdomen nondistended, there is no pain to palpation in any of the abdominal quadrants, no palpable masses. Extremities: There is no peripheral edema present at the lower extremities. Skin: No rashes or pruritus, there is no sacral edema present at this time. Neurological: Intact cranial nerves with no focal neurologic deficits laboratory and microbiology Laboratory Tests 01/12/25 05:17 Test 01/12/25 05:17 Range/Units Serum Glucose 145 H 74-106 mg/dL Microbiology Date/Time Source Procedure Growth Status 01/08/25 01:10 Nose MRSA Screen - Final Complete 01/07/25 20:13 Blood Blood Culture - Final NO GROWTH AFTER 5 DAYS OF INCUBATION. Complete Problem List/Assessment/Plan Problem List/Assessment/Plan 1. Sepsis due to pneumonia, Gram-negative, Gram positive, possibly 2. Acute exacerbation of COPD 3. Acute on chronic hypoxic respiratory failure 4. Leukocytosis 5. Lactic acidosis - Chest x-ray shows diffuse pulmonary interstitial opacities and pleural effusions bilaterally - Influenza and SARS-CoV-2 negative - Ordered sputum culture. Blood culture negative. MRSA screen negative. - Currently on IV vancomycin and Zosyn. Previously switched vancomycin to IV doxycycline 100 mg b.i.d.. to cover atypical as well - Continue ipratropium bromide, albuterol and methylprednisolone 6. Anemia, Rule out GI bleed 7. GI malignancy, possible - Hb down to 11.3 g/dL. GI consult recommended EGD and colonoscopy. - CT abdomen pelvis with oral contrast shows wall thickening in the ascending colon/ cecum. - Echo shows LVEF 45% with mild LVH. Cardiology cleared him for EGD and colonoscopy. - Going for EGD today. EGD shows mild Gwendolyn esophagitis, oral thrush. Sliding hiatal hernia with irregular squamocolumnar junction, erosive esophagitis, mild gastritis. - started on swish and swallow nystatin 5 mL p.o. t.i.d. - went in for colonoscopy today. Soft diet after colonoscopy. - We will consider CT IV contrast if normal findings on EGD or colonoscopy. 8. Hypokalemia 9. Severely Malnourished - Hypokalemia corrections with IV potassium chloride as needed. - Nutritional consult recommended to encourage p.o. intake and advanced to NCS cardiac diet when medically feasible. - We will continue to monitor and manage 10. Diabetes mellitus type 2, Hyperglycemia - Managed with sliding scale insulin 11. Hypertension - HTN managed with Lisinopril and Hydralazine. 12. Chronic hip pain - Pain management with Percocet. - Continues [place] for pain control as needed. Goals of care discussed with the patient at bedside for > 25 minutes. Full code Plan discussed with Dr. Lopes Plan discussed with: Patient Dietary Evaluation Review Comments: 1) Initiate Ensure Clear tid 2) Encourage optimal PO intake 3) Advance to NCS cardiac diet when medically feasible (liberalize diet d/t underweight and advanced age) 4) Refer to outpatient RD for weight gain 5) Follow-up with cardiology and gastroenterology 6) Continue to monitor I&O, labs, and skin integrity Expected Outcomes/Goals: 1) appetite and labs to improve 2) diet to advance 2) f/u in 2-3 days VENECIA FENTON RESIDENT Jan 13, 2025 18:11
[2025-01-13] MEDS ORDERED: ETOMIDATE (2MG/ML) 20ML VIAL IV ONE (20:18)
[2025-01-13] MEDS ORDERED: HYDROMORPHONE HCL 1 MG/ML INJ IV ONE (20:19)
[2025-01-14] VITALS (14 sets, daily range): BP systolic 106–151; BP diastolic 52–78; PULSE 58–96; RESP 16–18; TEMP 97.6–98; O2SAT 92–100
[2025-01-14] MEDS: GOLYTELY 4L KIT PO ONE (05:44)
[2025-01-14] MEDS: MAGNESIUM CITRATE SOLUTION 300 ML BTL PO ONE (05:46)
[2025-01-14] MEDS ORDERED: PROPOFOL 10 MG/ML 20 ML IV ONE (13:08)
--- NOTE | 2025-01-14 13:40 | DVHOP2 ---
Operative Report DATE OF OPERATION: 01/14/25 PROCEDURE: Diagnostic Colonoscopy. PREOPERATIVE INDICATION: The patient is a 79 -year-old male undergoing colonoscopy for abdominal pain and abnormal finding GI tract imaging POSTOPERATIVE DIAGNOSES: 1. 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 Trace to 1+ internal hemorrhoids otherwise essentially completely normal colonoscopy examination up to the cecum and terminal ileum PROCEDURE PERFORMED BY: Jaimee Quintero M.D. SCOPE: Olympus videocolonoscope. ASA CLASS: 3. PREOPERATIVE MEDICATIONS: Dr. Roel Robertson PROCEDURE IN DETAIL: After obtaining an informed consent, the patient was placed on left lateral decubitus position. He was then sedated with the above medications. A rectal examination was performed that was normal. The colonoscope was then passed through the anus into the rectosigmoid and through the descending, transverse, and ascending colon up to the cecum with visualization of the appendiceal orifice, base of the cecum and the ileoce william valve. The colonoscope was then withdrawn. The distal 5-10 cm of the terminal ileum were normal There were no masses or polyps or colitis. There was no abnormal finding in the cecum or the ascending colon. Patient had mild sigmoid diverticular disease and mild tortuosity of the colon On retroflexion and straight on view he had trace internal hemorrhoids. The patient tolerated the procedure well without difficulty. WITHDRAWAL TIME: 8 minutes QUALITY OF THE PREP: [place] Bowel Prep score: 9. COMPLICATIONS : None SPECIMENS: None DISPOSITION: Transfer back to the floor Stable PLAN: 1. Repeat colonoscopy in 10 years 2. Resume GI soft diet advance as tolerated 3. Increase fluid and fiber intake 4. Patient is cleared for discharge from GI point of view 5. Outpatient follow up with GI Services as needed JAIMEE QUINTERO MD Jan 14, 2025 13:40
--- NOTE | 2025-01-14 16:17 | DVHDSRES ---
Discharge Summary Date of Admission Resident Creating Document: VENECIA FENTON RESIDENT Jan 07, 2025 at 23:52 Date of Discharge: Jan 14, 2025 Admitting Diagnosis Sepsis due to pneumonia, Gram-negative, Gram positive, possibly Wounds: No large wounds. Labs/Diagnostic Data: Laboratory Results Test 01/14/25 11:06 01/12/25 05:17 01/10/25 05:05 01/08/25 14:06 POC Glucose 166 mg/dl (70-106) White Blood Count 7.8 10^3/uL (4.4-10.8) Red Blood Count 4.51 10^6/uL (4.5-5.90) Hemoglobin 12.2 g/dL (13.5-17.5) Hematocrit 37.7 % (41.0-53.0) Mean Corpuscular Volume 83.4 fL (80.0-100.0) Mean Corpuscular Hemoglobin 27.0 pg (28.0-32.0) Mean Corpuscular Hemoglobin Concent 32.4 g/dL (32.0-36.0) Red Cell Distribution Width 18.1 % (11.8-14.3) Platelet Count 308 10^3/uL (140-450) Mean Platelet Volume 7.6 fL (6.9-10.8) Neutrophils (%) (Auto) 75.4 % (37.0-80.0) Lymphocytes (%) (Auto) 13.4 % (10.0-50.0) Monocytes (%) (Auto) 11.2 % (0.0-12.0) Eosinophils (%) (Auto) 0.0 % (0.0-7.0) Basophils (%) (Auto) 0.0 % (0.0-2.0) Neutrophils # (Auto) 5.9 10 ^3/uL (1.6-8.6) Lymphocytes # (Auto) 1.1 10 ^3/uL (0.4-5.4) Monocytes # (Auto) 0.9 10 ^3/uL (0-1.3) Eosinophils # (Auto) 0 10 ^3/uL (0-0.8) Basophils # (Auto) 0 10 ^3/uL (0-0.2) Nucleated Red Blood Cells 0.0 % Prothrombin Time 11.6 sec (9.3-11.8) Prothrombin Time INR 1.11 (0.9-1.15) Activated Partial Thromboplast Time 30.5 SEC (24.5-34.5) Sodium Level 140 mmol/L (136-145) Potassium Level 4.7 mmol/L (3.5-5.1) Chloride Level 100 mmol/L (98-107) Carbon Dioxide Level 29 mmol/L (20-31) Anion Gap 11 (5-15) Blood Urea Nitrogen 12 mg/dL (9-23) Creatinine 0.71 mg/dL (0.700-1.30) Glomerular Filtration Rate Calc 93 mL/min (>90) BUN/Creatinine Ratio 16.9 (10.0-20.0) Serum Glucose 145 mg/dL (74-106) Calcium Level 9.8 mg/dL (8.7-10.4) Total Bilirubin 0.4 mg/dL (0.2-1.0) Aspartate Amino Transferase (AST) 24 U/L (13-40) Alanine Aminotransferase (ALT) 11 U/L (7-40) Alkaline Phosphatase 61 U/L (46-116) Total Protein 6.3 g/dL (5.7-8.2) Albumin 3.3 g/dL (3.2-4.8) Carcinoembryonic Antigen 0.64 ng/mL (<=5.0) Magnesium Level 1.9 mg/dL (1.6-2.6) Thyroid Stimulating Hormone (TSH) 0.50 uIU/mL (0.55-4.78) Lactic Acid Level 1.4 mmol/L (0.4-2.0) Test 01/08/25 03:30 01/08/25 01:10 01/07/25 23:17 01/07/25 20:47 Hemoglobin A1c 5.5 % A1C (<5.7) Influenza Type A Antigen Negative (Negative) Influenza Type B Antigen Negative (Negative) SARS-CoV-2 Antigen (Rapid) Negative (NEGATIVE) Troponin I High Sensitivity 18 ng/L (</=54) Urine Color Light-yellow (Yellow) Urine Clarity Clear (Clear) Urine pH 6.0 (5.0-9.0) Urine Specific [place] 1.010 (1.001-1.035) Urine Protein Trace (Negative) Urine Ketones 3+ (Negative) Urine Blood Negative /uL (Negative) Urine Nitrite Negative (Negative) Urine Bilirubin Negative (Negative) Urine Urobilinogen Normal mg/dL (Negative) Urine Leukocyte Esterase Negative /uL (Negative) Urine RBC 1 /hpf (0 - 3) Urine Microscopic WBC < 1 /HPF (0-3) Urine Squamous Epithelial Cells Few /hpf (<5) Urine Bacteria None seen /hpf (None Seen) Urine Glucose Normal mg/dL (Normal) Test 01/07/25 20:32 01/07/25 20:13 Blood Gas Specimen Type Arterial Blood Gas Sample Site Right radial Blood Gas Patient Temperature 37.0 Arterial Blood Date Drawn [id number] Arterial Blood pH 7.399 (7.350-7.450) Arterial Blood Partial Pressure CO2 31.9 mmHg (35.0-48.0) Arterial Blood Partial Pressure O2 72.4 mmHg (83.0-108.0) Arterial Blood HCO3 19.3 mmol/L (21.0-28.0) Arterial Blood Oxygen Saturation 93.8 % (94.0-98.0) Arterial Blood Base Excess -4.6 mmol/L (-2.0-3.0) Arterial Blood Oxyhemoglobin 91.5 % (94.0-98.0) Arterial Blood Carboxyhemoglobin 2.2 % (0.5-1.5) Arterial Blood Methemoglobin 0.3 % (0.0-1.5) Ifeanyi Test Modified Blood Gas Total Hemoglobin 12.60 g/dL (13.5-17.5) Blood Gas Set Respiration Rate 14.0 Blood Gas Modality Mask - bipap Blood Gas Spontaneous Rate 32 FiO2 % 35.0 Blood Gas EPAP 5 Blood Gas IPAP 12 B-Type Natriuretic Peptide 137.22 pg/mL (0-100) Other Laboratory Tests 01/12/25 05:17 Brief Hx & Hospital Course: This is an 79-year-old male with past medical history of hypertension, diabetes mellitus, chronic back pain, dementia, atrial fibrillation, COPD and diastolic dysfunction, he uses home oxygen on 2 L. He presented with shortness of breath. Patient had one-week history of worsening shortness for breath with associated cough and sputum. Reports loss of appetite. Sputum is productive, yellow in color. On arrival patient was noted to be saturating in the 80s, with increased oxygen demand. Patient presented with tachycardia, tachypnea, hypertension, hyperglycemia. Negative history of fever, chills, burning micturition, chest pain, orthopnea, recent sick contact. He was admitted in May 2024 for pneumonia for which he received antibiotics. Patient is cachectic and looks weak and states discomfort in the abdominal region. Patient denied fever/chills, chest pain, shortness of breath or any other associated symptoms. Labs show reduced hemoglobin, increased WBC count, neutrophilia, increase blood glucose and urine ketones. His labs are negative for COVID and influenza. He was given piperacillin-tazobactam and doxycycline along with IV fluids during his stay. Managed diabetes on sliding scale insulin. Tele monitor was reviewed and patient is on sinus rhythm with recurrent PACs and PVCs which makes it irregular. Suspect GI bleed or malignancy in context of anemia, cachexia and loss of appetite. CT of the abdomen and pelvis with contrast showed wall thickening at the level of the cecum. GI consulted and was advised to do an EGD and colonoscopy for him. Cardiology was consulted for preoperative clearance and AFib with RVR control. EGD showed mild Gwendolyn esophagitis, oral thrush; Sliding hiatal hernia with an irregular squamocolumnar junction, erosive esophagitis and mild gastritis. Nystatin swish and swallow given. Colonoscopy Procedure delayed due to poor prep, sigmoidoscopy done, no abnormality seen. Patient denied a ABG today. He is currently stable and will follow up with GI outpatient. Consults/Reason for consult GI consult, advised EGD evaluation and colonoscopy for further workup and treatment accordingly. Cardiology consulted to clear patient for surgery, Per cardiology standpoint, patient is at an acceptable-risk for moderate-risk surgery. Operations or Procedures CT CT AB PEL WITH ORAL CON ONLY History: GI bleed Comparison Study: None TECHNIQUE: Multidetector CT of the abdomen was performed from lung bases to pubic symphysis. Imaging was performed without IV contrast. Axial, coronal and sagittal multiplanar reformats were obtained from the axial data set by the technologist. Radiation Dose : 1. Abdomen/Pelvis: CTDIvol 5.1 mGy, DLP 236.5 mGy*cm. FINDINGS: Evaluation of solid organs is limited due to lack of intravenous contrast use. Findings: Lung Bases: Diffuse interstitial opacities with bronchial wall thickening and bronchial impaction with emphysematous changes. Liver: The liver is normal in size. No focal lesions. Gallbladder and Biliary Tree: Unremarkable Spleen: Unremarkable Pancreas: The pancreas is grossly normal in appearance. Adrenal Glands: Unremarkable Kidneys: Kidneys are grossly normal without calculi or hydronephrosis. Bladder: Grossly unremarkable for degree of distention. Bowel: Contrast is visualized in the colon. There is wall thickening in the ascending colon/ cecum. Underlying mass can not be excluded. Colonic diverticulosis without CT evidence of acute diverticulitis. Ascites: Absent Lymphadenopathy: No mesenteric, retroperitoneal or periportal lymphadenopathy. Abdominal Wall and Mesentery: Unremarkable. Vasculature: Severe atherosclerotic vascular disease of the abdominal aorta and its branches. The abdominal aorta is ectatic. Pelvic Organs: Unremarkable Musculoskeletal: No aggressive focal bony lesions, acute fractures or dislocation. Soft tissues: Unremarkable IMPRESSION: There is wall thickening in the ascending colon/ cecum. Underlying mass can not be excluded. Recommend direct visualization with colonoscopy. Diffuse interstitial opacities with bronchial wall thickening and bronchial impaction with emphysematous changes. Radiation optimization: All CT scans at this facility use at least one of these dose optimization techniques: automated exposure control mA and/or kV adjustment per patient size (includes targeted exams where dose is matched to clinical indication) or iterative reconstruction.CHEST RADIOGRAPH Indication: For procedure -- Technique: Single frontal view of the chest was obtained Comparison: XY CHEST PORTABLE on DOS: 01/07/25 FINDINGS: Lines and Tubes: None Lungs: Elevated right hemidiaphragm. Scattered bilateral opacities. Pleura: No effusion. No pneumothorax. Cardiomediastinal contours: Unremarkable Bones: No acute osseous abnormality. IMPRESSION: 1. Scattered bilateral opacities which may be infectious or inflammatory in etiology. -- XY CHEST PORTABLE CLINICAL HISTORY: sob TECHNIQUE: Single AP view of the chest WID: COMPARISON: XY CHEST XRAY 1 VIEW on DOS: 04/12/24 FINDINGS: Lines and tubes: None Chest: The heart size and pulmonary vasculature is within normal limits. Small bilateral pleural effusions. Diffuse interstitial opacities of the lungs. Hyperexpansion of the lungs. No pneumothorax. The osseous structures are grossly intact. IMPRESSION: Diffuse interstitial opacities of the lungs. DDX includes pulmonary edema, atypical infection, fibrosis/scarring. Small bilateral pleural effusions. -- DATE OF OPERATION: 01/14/25 PROCEDURE: Diagnostic Colonoscopy. PREOPERATIVE INDICATION: The patient is a 79 -year-old male undergoing colonoscopy for abdominal pain and abnormal finding GI tract imaging POSTOPERATIVE DIAGNOSES: 1. Mild to moderate sigmoid diverticular disease and mild tortuosity of the colon 2. Trace to 1+ internal hemorrhoids otherwise essentially completely normal colonoscopy examination up to the cecum and terminal ileum PROCEDURE PERFORMED BY: Gina Quintero M.D. SCOPE: Olympus videocolonoscope. ASA CLASS: 3. PREOPERATIVE MEDICATIONS: Dr. Roel Robertson PROCEDURE IN DETAIL: After obtaining an informed consent, the patient was placed on left lateral decubitus position. He was then sedated with the above medications. A rectal examination was performed that was normal. The colonoscope was then passed through the anus into the rectosigmoid and through the descending, transverse, and ascending colon up to the cecum with visualization of the appendiceal orifice, base of the cecum and the ileocecal valve. The colonoscope was then withdrawn. The distal 5-10 cm of the terminal ileum were normal There were no masses or polyps or colitis. There was no abnormal finding in the cecum or the ascending colon. Patient had mild sigmoid diverticular disease and mild tortuosity of the colon On retroflexion and straight on view he had trace internal hemorrhoids. The patient tolerated the procedure well without difficulty. WITHDRAWAL TIME: 8 minutes QUALITY OF THE PREP: [place] Bowel Prep score: 9. COMPLICATIONS : None SPECIMENS: None DISPOSITION: Transfer back to the floor Stable PLAN: 1. Repeat colonoscopy in 10 years 2. Resume GI soft diet advance as tolerated 3. Increase fluid and fiber intake 4. Patient is cleared for discharge from GI point of view 5. Outpatient follow up with GI Services as needed -- DATE OF OPERATION: 01/13/25 PROCEDURE: Incomplete colonoscopy/flexible sigmoidoscopy PREOPERATIVE INDICATION: The patient is a 79 -year-old male undergoing colonoscopy for abnormal finding GI tract imaging suspicious for ascending colon mass POSTOPERATIVE DIAGNOSES: 1. Patient had a very poor prep and therefore the procedure could not be completed or terminal slight 2. Grossly normal sigmoidoscopy up to 20 cm but limited exam due to poor prep PROCEDURE PERFORMED BY: Gina Quintero M.D. SCOPE: Olympus videocolonoscope. ASA CLASS: 3. PREOPERATIVE MEDICATIONS: Adrian Robertson PROCEDURE IN DETAIL: After obtaining an informed consent, the patient was placed on left lateral decubitus position. He was then sedated with the above medications. A rectal examination was performed that was normal. The colonoscope was then passed through the anus into the rectosigmoid The patient had a very poor prep with a large amount of thick liquid greenish stool in the colon that Was happening visualization of the colon. The colonoscope was then withdrawn. The patient tolerated the procedure well without difficulty. WITHDRAWAL TIME: Not applicable QUALITY OF THE PREP: [place] Bowel Prep score: Not applicable COMPLICATIONS : None SPECIMENS: None DISPOSITION: Transfer back to the floor Stable PLAN: 1. Repeat colonoscopy tomorrow after further attempts at a bowel prep 2. Resume clear liquid diet 3. Discussed with nurse and patient Condition at Discharge: Stable Final Diagnosis/Problems List Sepsis due to pneumonia, Gram-negative, Gram positive, possibly Acute exacerbation of COPD Acute on chronic hypoxic respiratory failure Leukocytosis Lactic acidosis Anemia, Rule out GI bleed GI malignancy, possible Hypokalemia Severely Malnourished Diabetes mellitus type 2, Hyperglycemia Hypertension Chronic hip pain Discharge Disposition: Home Discharge Instruct/Medications Diet: Consistent carbohydrate Diet comment: 1) Initiate Ensure Clear tid 2) Encourage optimal PO intake 3) Advance to NCS cardiac diet when medically feasible (liberalize diet d/t underweight and advanced age) 4) Refer to outpatient RD for weight gain 5) Follow-up with cardiology and gastroenterology 6) Continue to monitor I&O, labs, and skin integrity Activity: No Restrictions, As Tolerated Follow Up/Referral: Follow up with PCP in 1 week. Follow up with GI outpatient. Follow-up outpatient RD for weight gain. Follow-up with cardiology and gastroenterology Care Plan: Follow up with PCP in 1 week. Follow up with GI outpatient. Follow-up outpatient RD for weight gain. Follow-up with cardiology and gastroenterology. Please continue home medications. Scheduled Apixaban Base (Eliquis), 5 MG PO BID, (Reported) Atorvastatin Calcium (Atorvastatin Calcium), 1 TAB PO DAILY, (Reported) Glipizide (Glipizide), 1 TAB PO DAILY, (Reported) Scheduled PRN Pregabalin (Pregabalin), 1 CAP PO BIDPRN PRN for neuropathy, (Reported) Discharge Statement: "Patient was advised to return to the ER or call 911 if any headaches, dizziness, shortness of breath, chest pain, abdominal pain, bleeding, fevers, or worsening of medical condition. Patient was counseled about treatment plan, medications, possible side effects, patientverbalized understanding. All questions were answered to the best of my ability. This discharge took greater then 30 minutes in planning, reviewing documentation, counseling the patient, and discussing with other team members." ASSESSMENT ASSESSMENT Assessment Sepsis due to pneumonia, Gram-negative, Gram positive, possibly Acute exacerbation of COPD Acute on chronic hypoxic respiratory failure Leukocytosis Lactic acidosis Anemia, Rule out GI bleed GI malignancy, possible Hypokalemia Severely Malnourished Diabetes mellitus type 2, Hyperglycemia Hypertension Chronic hip pain VENECIA FENTON RESIDENT Jan 14, 2025 16:17
== END 2025-01-14 18:55 | disposition home or self-care (01) | DRG 871 ==
LOC: ER 19:38 → EDBD 19:38 → OVERFLOW 23:52 → TELE-WESTW 01-08 14:23
PROVIDERS: ADMIT Student in an Organized Health Care Education/Training Program; ATTEND Student in an Organized Health Care Education/Training Program
PROC: 5A09357 Assistance with Respiratory Ventilation, Less than 24 Consecutive Hours, Continuous Positive Airway Pressure (ICD-10-PCS; 2025-01-07)
PROC: 0DB68ZX Excision of Stomach, Via Natural or Artificial Opening Endoscopic, Diagnostic (ICD-10-PCS; 2025-01-12)
PROC: 0DB38ZX Excision of Lower Esophagus, Via Natural or Artificial Opening Endoscopic, Diagnostic (ICD-10-PCS; 2025-01-12)
PROC: 05H933Z Insertion of Infusion Device into Right Brachial Vein, Percutaneous Approach (ICD-10-PCS; 2025-01-12)
PROC: B54MZZA Ultrasonography of Right Upper Extremity Veins, Guidance (ICD-10-PCS; 2025-01-12)
PROC: 0DB98ZX Excision of Duodenum, Via Natural or Artificial Opening Endoscopic, Diagnostic (ICD-10-PCS; principal; 2025-01-12 15:33)
PROC: 0DJD8ZZ Inspection of Lower Intestinal Tract, Via Natural or Artificial Opening Endoscopic (ICD-10-PCS; 2025-01-13)
PROC: 0DJD8ZZ Inspection of Lower Intestinal Tract, Via Natural or Artificial Opening Endoscopic (ICD-10-PCS; 2025-01-14)
DX: A41.50 Gram-negative sepsis, unspecified (principal); E43 Unspecified severe protein-calorie malnutrition; J15.69 Pneumonia due to other Gram-negative bacteria; J96.21 Acute and chronic respiratory failure with hypoxia; J15.9 Unspecified bacterial pneumonia; K29.71 Gastritis, unspecified, with bleeding; K57.31 Diverticulosis of large intestine without perforation or abscess with bleeding; K22.11 Ulcer of esophagus with bleeding; J44.1 Chronic obstructive pulmonary disease with (acute) exacerbation; E87.20 Acidosis, unspecified; B37.81 Candidal esophagitis; B37.0 Candidal stomatitis; J44.0 Chronic obstructive pulmonary disease with (acute) lower respiratory infection; I50.22 Chronic systolic (congestive) heart failure; Z68.1 Body mass index [BMI] 19.9 or less, adult; Z20.822 Contact with and (suspected) exposure to COVID-19; I48.0 Paroxysmal atrial fibrillation; K44.9 Diaphragmatic hernia without obstruction or gangrene; I11.0 Hypertensive heart disease with heart failure; E87.6 Hypokalemia; F03.90 Unspecified dementia, unspecified severity, without behavioral disturbance, psychotic disturbance, mood disturbance, and anxiety; E78.5 Hyperlipidemia, unspecified; G89.29 Other chronic pain; M19.09 Primary osteoarthritis, other specified site; I49.3 Ventricular premature depolarization; E11.65 Type 2 diabetes mellitus with hyperglycemia; K64.8 Other hemorrhoids; Z87.891 Personal history of nicotine dependence; Z83.3 Family history of diabetes mellitus; Z79.01 Long term (current) use of anticoagulants; Z79.899 Other long term (current) drug therapy; Z99.81 Dependence on supplemental oxygen
CPT/HCPCS: 36415; 36600; 45330; 45378; 71045; 74176; 80048; 80053; 81001; 82378; 82805; 82962; 83036; 83605; 83735; 83880; 84443; 84484; 85025; 85610; 85730; 86850; 86900; 86901; 87040; 87081; 87426; 87804; 93005; 93306; 94640; 94660; 96365; 96366; 96375; 97110; 97116; 97163; 99291; 99292; G0378; J1815; J2003; J2250; J2405; J2470; J2543; J2704; J3480

== ENCOUNTER 2025-01-17 15:53 | Inpatient (IN) | payer MEDICARE, BC ==
[~2025-01-17] VITALS: Ht 170.2 cm; Wt 47.5 kg
--- NOTE | 2025-01-17 16:05 | ED.PDOC ---
SOB-HPI HPI Comments HPI: Poor Historian. Past Medical History: Past Surgical History: HPI: 79y M who presents to the ED for chief complaint of shortness of breath - EMS states pt shortness of breath started at approx 1400 and called EMS - EMS arrived on scene and pt was noted to be on 2 L via nc with 02 sat of 80% - EMS gave pt 3 x Duo Neb treatments and placed pt on 6 L via nc and pt 02 sat marva to 89% upon arrival to the ED - pt in the ED, is alert and oriented and able to speak in full sentences and has noted heart rate of 118 in the ED, - pt in no noted respiratory distress and otherwise denies chest pain, fever, cough, chills, or associated symptoms - pt is currently not on any blood thinner at this time Past Medical History: hypertension, diabetes mellitus, chronic back pain, dementia, atrial fibrillation, COPD and diastolic dysfunction, he uses home oxygen on 2 L, Past Surgical History: Social History: Denies ETOH, smoking, and drug use. Medications: albuterol Allergies: denies REVIEW OF SYSTEMS: CONSTITUTIONAL: Denies acute: fever, diaphoresis, chills, generalized weakness. HEAD: Denies acute: headache, photophobia Eyes: Denies acute: Double vision, vision loss, eye pain, eye discharge. EARS: Denies acute: tinnitus, hearing loss, ear discharge, ear pain, THROAT: Denies acute: sore throat, swelling, difficulty swallowing , pain with swallowing, change in voice. NECK: Denies acute: neck pain, neck swelling, stiff neck. HEART: Denies acute : chest pain, palpitations, LUNGS: Denies acute: , , cough, hemoptysis ABDOMEN: Denies acute: abdominal pain, Nausea, Vomiting, diarrhea, melena , hematemesis, hematochezia SKIN: Denies acute: rash, redness, lesions, itchiness. EXTREMITIES: Denies acute: calf pain, numbness, tingling, weakness, denies pain in extremity. Denies acute: Low back pain. Neuro: Denies acute: focal neurological deficit, motor or sensory focal neurological deficit, tremors, seizure like activity, confusion, dizziness, change in mental status, loss of bowel or bladder function, cauda equina like symptoms. : Denies acute: dysuria, hematuria, flank pain, increase in urinary frequency. PSYCH: Denies acute: hallucination, suicidal ideation, homicidal ideation. FEMALE: Denies acute: abnormal vaginal bleeding, foul odor, unusual discharge. PHYSICAL EXAM: General: ----[id number]----acute distress, awake and alert. Head: normocephalic, atraumatic. Neck: supple, trachea is midline, no swelling. Throat: Normal phonation. Eyes:, no erythema, no purulent discharge, no proptosis, no icterus. Heart: regular tachycardic, no significant murmur appreciated. Lungs: no apparent respiratory distress, Able to speak in full sentences. No wheezing, no rhonchi, no crackles. No stridors Clear to auscultation bilaterally. Abdomen: non tender to palpation, non distended, soft, no guarding, no rebound, + bowel sounds. Neuro: Awake, Alert, oriented to name, self, situation, follows commands GCS=15. Speech is normal. Skin: no petechia, no purpura, no cyanosis, non-pale, not jaundice. Lower extremities: --no - Pitting edema no deformity, no focal swelling, no calf TTP. Makes eye contact. moves all four extremities. Face: no apparent facial droop. ED COURSE: DISCLAIMER: This medical document was created using an electronic medical record system with voice recognition software and computerized dictation system. Although this document has been carefully reviewed, there might still be some phonetic and typographical errors. Occasional wrong-word or "sound-alike" substitutions may have occurred due to the inherent limitations of voice recognition software. These areas are purely typographical due to imperfections of the software programs and do not reflect any compromise in the patient's medical care. Please read the chart carefully and recognize, using context, where these substitutions have occurred. Chief Complaint: Shortness of Breath Time Seen by MD: 16:01 Primary Care Provider: UNKNOWN Reviewed notes: Photo Studio Assistant Notes Information Source: Patient, Emergency Med Personnel Mode of Arrival: EMS Past Medical History PAST MEDICAL HISTORY: COPD, Dementia, DM, HTN Surgical History: Unknown Family History Family History: Reviewed,noncontributory to illness, Unknown Social History Smoker: Quit Greater Than 1 Year Alcohol: Denies ETOH Use Drugs: Denies Drug Use Lives In: Home Was a procedure done? Was a procedure done?: No Differential Dx Differential Diagnosis: Other (DDx include ACS, unstable angina, anxiety, PE, pneumothroax, neoplasm, cardiac ischemia, COPD, asthma, CHF, pleural effusion, tobacco abuse, pneumonia, hypoxia, hypercapnia, anemia., infection/sepsis., pulmonary edema. Asthma, Cardiac tamponade, infection.) X-Ray, Labs, Meds, VS Vital Signs Date Time Temp Pulse Resp B/P (MAP) Pulse Ox O2 Delivery O2 Flow Rate FiO2 01/17/25 18:47 97 Oxymizer 11 N/A 01/17/25 18:44 113 20 98 Oxymizer 11 N/A 01/17/25 18:00 105 16 104/50 (68) 93 01/17/25 17:00 111 01/17/25 16:11 14 93 Nasal Cannula* 3 32 01/17/25 16:09 98.5 118 24 117/69 (85) 89 98.5 01/17/25 16:00 98.4 118 20 112/52 (72) 93 98.4 Lab Test 01/17/25 17:57 01/17/25 16:31 Range/Units White Blood Count 26.0 #H 4.4-10.8 10^3/uL Red Blood Count 4.09 L 4.5-5.90 10^6/uL Hemoglobin 11.1 L 13.5-17.5 g/dL Hematocrit 34.6 L 41.0-53.0 % Mean Corpuscular Volume 84.6 80.0-100.0 fL Mean Corpuscular Hemoglobin 27.0 L 28.0-32.0 pg Mean Corpuscular Hemoglobin Concent 32.0 32.0-36.0 g/dL Red Cell Distribution Width 18.1 H 11.8-14.3 % Platelet Count 235 140-450 10^3/uL Mean Platelet Volume 8.0 6.9-10.8 fL Neutrophils (%) (Auto) 37.0-80.0 % Lymphocytes (%) (Auto) 10.0-50.0 % Monocytes (%) (Auto) 0.0-12.0 % Basophils (%) (Auto) 0.0-2.0 % Neutrophils # (Auto) 1.6-8.6 10 ^3/uL Lymphocytes # (Auto) 0.4-5.4 10 ^3/uL Monocytes # (Auto) 0-1.3 10 ^3/uL Differential Total Cells Counted 100.0 100 Neutrophils % (Manual) 93 H 37.0-80.0 Band Neutrophils % (Manual) 0 Lymphocytes % (Manual) 4 L 10.0-50.0 Monocytes % (Manual) 3 0-12 Eosinophils % (Manual) 0 0-7 Basophils % (Manual) 0 0.0-2.0 Metamyelocytes % (manual) 0 Myelocytes % (Manual) 0 Promyelocytes % (Manual) 0 Blast Cells % (Manual) 0 Reactive Lymphocytes 0 Platelet Estimate Adequate Sodium Level 139 136-145 mmol/L Potassium Level 3.2 L 3.5-5.1 mmol/L Chloride Level 100 98-107 mmol/L Carbon Dioxide Level 29 20-31 mmol/L Anion Gap 10 5-15 Blood Urea Nitrogen 9 9-23 mg/dL Creatinine 0.65 L 0.700-1.30 mg/dL Glomerular Filtration Rate Calc 95 >90 mL/min BUN/Creatinine Ratio 13.8 10.0-20.0 Serum Glucose 112 H 74-106 mg/dL Calcium Level 9.5 8.7-10.4 mg/dL Total Bilirubin 1.0 0.2-1.0 mg/dL Aspartate Amino Transferase (AST) 15 13-40 U/L Alanine Aminotransferase (ALT) < 9 7-40 U/L Alkaline Phosphatase 60 46-116 U/L Troponin I High Sensitivity 18 </=54 ng/L B-Type Natriuretic Peptide 81.03 0-100 pg/mL Total Protein 6.4 5.7-8.2 g/dL Albumin 3.5 3.2-4.8 g/dL POC Glucose 110 H 70-106 mg/dl [address] [address] Ph: [phone] DIAGNOSTIC IMAGING Diagnostic Imaging Report : [id number] Signed PATIENT: CLAUDE MENDEZ ACCT: [id number] UNIT: [id number] : 1945 LOC: ER ROOM / BED: / AGE / SEX: 79 / M ADM STATUS: REG ER SERVICE 1604 ORDERING PHYSICIAN: ONIEL TOLLIVER DO PROCEDURE(s): CXRP - CHEST PORTABLE REASON: SOB ORDER NUMBER(s): [id number], ACCESSION NUMBER(s): [id number] CHEST RADIOGRAPH Indication: SOB Technique: Single frontal view of the chest was obtained Comparison: XY CHEST XRAY 1 VIEW on DOS: 01/12/25, XY CHEST PORTABLE on DOS: 01/07/25, XY CHEST XRAY 1 VIEW on DOS: 04/12/24 FINDINGS: Lines and Tubes: None Lungs: Prominent interstitial markings throughout the right chest may represent pneumonia. There is also prominent interstitial markings left base Pleura: No effusion. No pneumothorax. Cardiomediastinal contours: Unremarkable Bones: No acute osseous abnormality. IMPRESSION: 1. Increased interstitial prominence throughout the right chest in the left base may represent pneumonia. Cardiac size is within normal limits. 2. These findings are a change from the chest x-ray 01/12/2025. ATED BY: ZEE JOHNSON Jr., DO DICTATED DATE/TIME: 01/17/251656 SIGNED BY: ZEE JOHNSON Jr., SIGNED DATE/TIME: 01/17/251656 CC: Time of 1ST Reevaluation: 00:00 Reevaluation 1ST: N/A Patient Education/Counseling: Diagnosis, Treatment Family Education/Counseling: No Family Present Comments MDM: patient presented with the above HPI.--dyspnea----workup was initiated. patient was found with the above mentioned diagnosis. the following medications were ordered: please refer to order lists of meds and tests obtained by myself Dr. Tolliver. Patient ED course and VS have been stabilized. Patient has been reassessed in the ED and remained in a stable condition. Pertinent incidental findings were discussed with the patient and/or family. Patient/family voices understanding and is agreeable with plan. Patient has been observed in the ED adequate length of time to insure improvement/stability. Escalation of care considered: Consideration of escalation to observation or admission Patient was found with leukocytosis, antibiotics initiated. Patient was given DuoNeb treatment and steroids. Patient was ADMITTED to the medicine team for further evaluation and treatment of their presentation. All the reports of any imaging studies that were ordered by myself were reviewed by myself. SEPSIS Sepsis Screen Physician Orders Marketing Analyst (01/17/25 ) Electrocardigram (01/17/25 15:57) Chest Portable (01/17/25 16:04) Vital Signs Date Time Temp Pulse Resp B/P (MAP) Pulse Ox O2 Delivery O2 Flow Rate FiO2 01/17/25 18:47 97 Oxymizer 11 N/A 01/17/25 18:44 113 20 98 Oxymizer 11 N/A 01/17/25 18:00 105 16 104/50 (68) 93 01/17/25 17:00 111 01/17/25 16:11 14 93 Nasal Cannula* 3 32 01/17/25 16:09 98.5 118 24 117/69 (85) 89 98.5 01/17/25 16:00 98.4 118 20 112/52 (72) 93 98.4 Laboratory Tests Test 01/17/25 17:57 White Blood Count 26.0 10^3/uL (4.4-10.8) #H Departure 1 Departure Time of Disposition: 16:12 Impression: Primary Impression: Acute respiratory failure Additional Impressions: Hypoxemia Leukocytosis Pneumonia Disposition: 09 ADMITTED INPATIENT Admit to: Tele Condition: Guarded e-Prescriptions Doxycycline (Monohydrate) (Doxycycline) 100 Mg Cap 100 MG PO BID for 5 Days, #10 CAP Prov: KEITH PARKTRIXIE RESIDENT 01/22/25 Amoxicillin & Pot Clavulanate (AUGMENTIN TABLET) 875 Mg Tb 875 MG PO BID for 10 Days, #20 TAB Prov: RENETTA PARKSONIA RESIDENT 01/22/25 Discharged With: Self Critical Care Note Critical Care Time?: No Heart Score Heart Score: Heart Score Response (Comments) Value History Slightly Suspicious 0 EKG Normal 0 Age >65 2 Risk Factors >3 or Hx ASHD 2 Troponin Normal limit 0 Total 4 I personally scribed for ONIEL TOLLIVER DO ([email or web address]) on 01/17/25 at 16:05. Electronically submitted by Romario Mathew ([email or web address]). I personally scribed for ONIEL TOLLIVER DO ([email or web address]) on 01/17/25 at 18:23. Electronically submitted by Romario Mathew ([email or web address]). ONIEL TOLLIVER DO Jan 17, 2025 16:05
[2025-01-17] MEDS: IPRATROPIUM BROM 0.5 MG/2.5ML INH SOL NEB ONE (16:09)
[2025-01-17] MEDS: ALBUTEROL SULF 2.5 MG/0.5ML(0.5%) NEB SOLN NEB ONE (16:09)
[2025-01-17] MEDS: methylPREDNISolone SOD SUCC 125 MG/2 ML VL IV ONE (16:58)
--- NOTE | 2025-01-17 17:00 | DVH ---
CHEST RADIOGRAPH Indication: SOB Technique: Single frontal view of the chest was obtained Comparison: XY CHEST XRAY 1 VIEW on DOS: 01/12/25, XY CHEST PORTABLE on DOS: 01/07/25, XY CHEST XRAY 1 EW on DOS: 04/12/24 FINDINGS: Lines and Tubes: None Lungs: Prominent interstitial markings throughout the right chest may represent pneumonia. There is a lso prominent interstitial markings left base Pleura: No effusion. No pneumothorax. Cardiomediastinal contours: Unremarkable Bones: No acute osseous abnormality. IMPRESSION: 1. Increased interstitial prominence throughout the right chest in the left base may represent pneumo suzanne. Cardiac size is within normal limits. 2. These findings are a change from the chest x-ray 01/12/2025.
[2025-01-17] MEDS: PIPERACILLIN-TAZOB 3.375GM 100 ML IV ONE (17:44)
[2025-01-17 18:17] LABS: Hemoglobin 11.1 g/dL (13.5-17.5)
[2025-01-17 18:18] LABS: Hematocrit 34.6 % (41.0-53.0); Mean Corpuscular Hemoglobin 27.0 pg (28.0-32.0); Mean Corpuscular Volume 84.6 fL (80.0-100.0)
[2025-01-17 18:35] LABS: Albumin 3.5 g/dL (3.2-4.8); Alkaline Phosphatase 60 U/L (46-116); Anion Gap 10 (5-15); BUN/Creatinine Ratio 13.8 (10.0-20.0); Bilirubin, Total 1.0 mg/dL (0.2-1.0); Calcium 9.5 mg/dL (8.7-10.4); Carbon Dioxide 29 mmol/L (20-31); Chloride 100 mmol/L (98-107); Sodium 139 mmol/L (136-145); Total Protein 6.4 g/dL (5.7-8.2)
[2025-01-17 18:36] LABS: Alanine Aminotransferase < 9 U/L (7-40); Blood Urea Nitrogen 9 mg/dL (9-23); Glucose 112 mg/dL (74-106); Potassium 3.2 mmol/L (3.5-5.1)
[2025-01-17 18:44] VITALS: PULSE 113; RESP 20; O2SAT 98
[2025-01-17 18:57] LABS: Total Cells Counted 100.0 (100)
--- NOTE | 2025-01-17 19:09 | DVHHP2 ---
Admitting Diagnosis: Acute hypoxia History of Present Illness 79y M who presents to the ED for chief complaint of shortness of breath EMS states pt shortness of breath started at approx 1400 and called EMS EMS arrived on scene and pt was noted to be on 2 L via nc with 02 sat of 80% EMS gave pt 3 x Duo Neb treatments and placed pt on 6 L via nc and pt 02 sat marva to 89% upon arrival to the ED pt in the ED, is alert and oriented and able to speak in full sentences and has noted heart rate of 118 in the ED, pt in no noted respiratory distress and otherwise denies chest pain, fever, cough, chills, or associated symptoms pt is currently not on any blood thinner at this time' Past Medical History: hypertension, diabetes mellitus, chronic back pain, dementia, atrial fibrillation, COPD and diastolic dysfunction, he uses home oxygen on 2 L, Past Surgical History: Social History: Denies ETOH, smoking, and drug use. Medications: albuterol Allergies: denies REVIEW OF SYSTEMS: CONSTITUTIONAL: Denies acute: fever, diaphoresis, chills, generalized weakness. HEAD: Denies acute: headache, photophobia Eyes: Denies acute: Double vision, vision loss, eye pain, eye discharge. EARS: Denies acute: tinnitus, hearing loss, ear discharge, ear pain, THROAT: Denies acute: sore throat, swelling, difficulty swallowing , pain with swallowing, change in voice. NECK: Denies acute: neck pain, neck swelling, stiff neck. HEART: Denies acute : chest pain, palpitations, LUNGS: Denies acute: , , cough, hemoptysis ABDOMEN: Denies acute: abdominal pain, Nausea, Vomiting, diarrhea, melena , hematemesis, hematochezia SKIN: Denies acute: rash, redness, lesions, itchiness. EXTREMITIES: Denies acute: calf pain, numbness, tingling, weakness, denies pain in extremity. Denies acute: Low back pain. Neuro: Denies acute: focal neurological deficit, motor or sensory focal neurological deficit, tremors, seizure like activity, confusion, dizziness, change in mental status, loss of bowel or bladder function, cauda equina like symptoms. : Denies acute: dysuria, hematuria, flank pain, increase in urinary frequency. PAST MEDICAL HISTORY: COPD, Dementia, DM, HTN Surgical History: Unknown Family History Family History: Reviewed,noncontributory to illness, Unknown Social History Smoker: Quit Greater Than 1 Year Alcohol: Denies ETOH Use Drugs: Denies Drug Use Lives In: Home Patient Family History: Diabetes mellitus G8 MOTHER G8 FATHER Allergies: Coded Allergies: NO KNOWN ALLERGIES (Unverified , 04/02/24) Home Meds Reported Medications Pregabalin (Pregabalin) 200 Mg Cap, 1 CAP PO BIDPRN PRN for neuropathy 04/03/24 Atorvastatin Calcium (ATORVASTATIN CALCIUM) 20 Mg Tab, 1 TAB PO DAILY 04/03/24 Glipizide (Glipizide) 5 Mg Tab, 1 TAB PO DAILY 04/03/24 Apixaban Base (ELIQUIS) 5 Mg Tab, 5 MG PO BID, TAB 04/03/24 Vital Signs Vital Signs Date Time Temp Pulse Resp B/P (MAP) Pulse Ox O2 Delivery O2 Flow Rate FiO2 01/17/25 18:47 97 Oxymizer 11 N/A 01/17/25 18:44 113 20 01/17/25 18:00 104/50 (68) 01/17/25 16:09 98.5 98.5 Physical Exam Generally-79 years old male, frail, lying in bed. Mild distress on nasal cannula HEENT-atraumatic, normocephalic Heart-regular rate and rhythm Lungs decreased breath sounds on right lower lung woo Abdomen soft nontender nondistended Musculoskeletal-no edema cyanosis Neuro-AO x3, no focal deficits SEPSIS Sepsis Screen Date sepsis recognized/suspect: Jan 17, 2025 Time Sepsis recognized/suspect: 1846 Recent Procedure: No On Antibiotic Therapy: No Respiratory Rate >20: No Heart Rate >90: No Temp<36 C (96.8 F) or >38.3 C: No SBP <90 or MAP <65 mmHG: No New Acute Mental Status Change: No Is the patient on CPAP, BIPAP,: No Physician Orders Ehs Specialist (01/17/25 ) Electrocardigram (01/17/25 15:57) Troponin-I Hs (01/17/25 16:57) Troponin-I Hs (01/17/25 18:57) Chest Portable (01/17/25 16:04) Vital Signs Date Time Temp Pulse Resp B/P (MAP) Pulse Ox O2 Delivery O2 Flow Rate FiO2 01/17/25 18:47 97 Oxymizer 11 N/A 01/17/25 18:44 113 20 98 Oxymizer 11 N/A 01/17/25 18:00 105 16 104/50 (68) 93 01/17/25 17:00 111 01/17/25 16:11 14 93 Nasal Cannula* 3 32 01/17/25 16:09 98.5 118 24 117/69 (85) 89 98.5 01/17/25 16:00 98.4 118 20 112/52 (72) 93 98.4 Laboratory Tests Test 01/17/25 17:57 White Blood Count 26.0 10^3/uL (4.4-10.8) #H Medications Medications Dose Ordered Sig/Milena Route Start Time Stop Time Status Last Admin Dose Admin Albuterol 2.5 mg ONCE ONCE NEB 01/17/25 16:00 01/17/25 16:01 DC 01/17/25 16:09 Ipratropium [place] 1 mg ONCE ONCE NEB 01/17/25 16:00 01/17/25 16:01 DC 01/17/25 16:09 Methylprednisolone Sodium Succinate 125 mg ONCE ONCE IV 01/17/25 16:00 01/17/25 16:01 DC 01/17/25 16:58 Piperacillin Sod/ Tazobactam Sod 100 ml @ 100 mls/hr ONCE ONCE IV 01/17/25 17:15 01/17/25 18:14 DC 01/17/25 17:44 Results Labs Test 01/17/25 17:57 01/17/25 16:31 Range/Units White Blood Count 26.0 #H 4.4-10.8 10^3/uL Red Blood Count 4.09 L 4.5-5.90 10^6/uL Hemoglobin 11.1 L 13.5-17.5 g/dL Hematocrit 34.6 L 41.0-53.0 % Mean Corpuscular Volume 84.6 80.0-100.0 fL Mean Corpuscular Hemoglobin 27.0 L 28.0-32.0 pg Mean Corpuscular Hemoglobin Concent 32.0 32.0-36.0 g/dL Red Cell Distribution Width 18.1 H 11.8-14.3 % Platelet Count 235 140-450 10^3/uL Mean Platelet Volume 8.0 6.9-10.8 fL Neutrophils (%) (Auto) 37.0-80.0 % Lymphocytes (%) (Auto) 10.0-50.0 % Monocytes (%) (Auto) 0.0-12.0 % Basophils (%) (Auto) 0.0-2.0 % Neutrophils # (Auto) 1.6-8.6 10 ^3/uL Lymphocytes # (Auto) 0.4-5.4 10 ^3/uL Monocytes # (Auto) 0-1.3 10 ^3/uL Differential Total Cells Counted 100.0 100 Neutrophils % (Manual) 93 H 37.0-80.0 Band Neutrophils % (Manual) 0 Lymphocytes % (Manual) 4 L 10.0-50.0 Monocytes % (Manual) 3 0-12 Eosinophils % (Manual) 0 0-7 Basophils % (Manual) 0 0.0-2.0 Metamyelocytes % (manual) 0 Myelocytes % (Manual) 0 Promyelocytes % (Manual) 0 Blast Cells % (Manual) 0 Reactive Lymphocytes 0 Platelet Estimate Adequate Sodium Level 139 136-145 mmol/L Potassium Level 3.2 L 3.5-5.1 mmol/L Chloride Level 100 98-107 mmol/L Carbon Dioxide Level 29 20-31 mmol/L Anion Gap 10 5-15 Blood Urea Nitrogen 9 9-23 mg/dL Creatinine 0.65 L 0.700-1.30 mg/dL Glomerular Filtration Rate Calc 95 >90 mL/min BUN/Creatinine Ratio 13.8 10.0-20.0 Serum Glucose 112 H 74-106 mg/dL Calcium Level 9.5 8.7-10.4 mg/dL Total Bilirubin 1.0 0.2-1.0 mg/dL Aspartate Amino Transferase (AST) 15 13-40 U/L Alanine Aminotransferase (ALT) < 9 7-40 U/L Alkaline Phosphatase 60 46-116 U/L Troponin I High Sensitivity 18 </=54 ng/L B-Type Natriuretic Peptide 81.03 0-100 pg/mL Total Protein 6.4 5.7-8.2 g/dL Albumin 3.5 3.2-4.8 g/dL POC Glucose 110 H 70-106 mg/dl Primary Diagnosis Acute hypoxic respiratory failure due to right lung pneumonia suspect aspiration Plan Family patient coughs throughout the day especially during eating Chest x-ray shows worsening right lung infiltration Start vanc and Zosyn for broad-spectrum antibiotics Check procalcitonin MANAGEMENT NURSE RN eval IV fluid Goal greater than 92% Continues cannula for oxygen supplementation MANAGEMENT NURSE RN eval for dysplasia Resume home meds Regular diet Full code Lovenox for DVT prophylaxis No GI prophylaxis Plan discussed with: Patient Problems List: (1) Hypoxemia Status: Acute (2) Respiratory distress Status: Acute Date of Service: Jan 17, 2025 Billing Provider: NUNU WADE MD Common Visit Codes: [id number] INP/OBS CARE (HIGH) NUNU WADE MD Jan 17, 2025 19:09
[2025-01-17] MEDS ORDERED: VANCOMYCIN PER PHARMACY 0 MG IV SCH (19:15)
[2025-01-17] MEDS ORDERED: ONDANSETRON HCL 4 MG/2 ML VIAL IV PRN (19:15)
[2025-01-17 19:31] VITALS: BP 104/50; PULSE 112; RESP 22; TEMP 98.5; O2SAT 97
[2025-01-17 19:42] LABS: Base Excess 2.0 mmol/L (-2.0-3.0)
[2025-01-17] MEDS: ALBUTEROL SULF 2.5 MG/0.5ML(0.5%) NEB SOLN NEB PRN (19:49)
[2025-01-17] MEDS: IPRATROPIUM BROM 0.5 MG/2.5ML INH SOL NEB PRN (19:49)
[2025-01-17 19:50] VITALS: PULSE 105; RESP 18; O2SAT 92
[2025-01-17 19:51] VITALS: O2SAT 93
[2025-01-17 19:55] VITALS: PULSE 105; RESP 21; O2SAT 100
[2025-01-17] MEDS: SODIUM CHLOR 0.9% PF (SALINE LOCK) 10ML VIAL/SYR IV SCH (21:05)
[2025-01-17] MEDS: HYDROcodone-ACET 5/325MG TAB PO PRN (21:30)
[2025-01-17] MEDS: ACETAMINOPHEN 325 MG TAB PO PRN (21:31)
[2025-01-17] MEDS: AZITHROMYCIN 500MG/ 250ML 250 ML IV SCH (22:15)
[2025-01-17] MEDS: OXYCODONE W/ ACETAMINOPHEN 5/325MG TABLET PO PRN (23:22)
[2025-01-17] MEDS: methylPREDNISolone SOD SUCC 125 MG/2 ML VL IV SCH (23:23)
[2025-01-18] VITALS (12 sets, daily range): BP systolic 99–142; BP diastolic 43–65; PULSE 67–100; RESP 17–20; TEMP 97.7–98.5; O2SAT 94–100
[2025-01-18] MEDS: PIPERACILLIN-TAZOB 3.375GM 100 ML IV SCH (02:00)
[2025-01-18] MEDS: DOCUSATE SOD 100 MG CAP PO PRN (05:56)
[2025-01-18] MEDS: ALBUTEROL SULF 2.5 MG/0.5ML(0.5%) NEB SOLN NEB SCH (06:00)
[2025-01-18] MEDS: IPRATROPIUM BROM 0.5 MG/2.5ML INH SOL NEB SCH (06:00)
[2025-01-18] MEDS ORDERED: VANCOMYCIN 500mg/100mL 100 ML IV SCH (09:30)
[2025-01-18] MEDS: PANTOPRAZOLE 40 MG/10 ML VIAL INJ IV SCH (10:54)
[2025-01-18] MEDS: ENOXAPARIN SOD 40 MG/0.4 ML SYRINGE SC SCH (10:55)
[2025-01-18 11:50] LABS: Urine Protein, UAD Negative (Negative)
--- NOTE | 2025-01-18 13:16 | DVHPNRES ---
Progress Note Date Seen: Jan 18, 2025 Resident Creating Document: [facility] P[facility] RESIDENT Medical Necessity Reason Pt with a Central, PICC or Fol: No Subjective Review of Systems CLAUDE MENDEZ is a 79 years old male with a PMH of HTN, type 2 DM controlled, chronic back pain, dementia, COPD presented to the ED with the chief complaints of worsening of shortness since couple of days. Patient is poor historian, alert and oriented but able to speak in full sentences. Patient denies fever, cough, chest pain, nausea, vomiting, diarrhea and other associated symptoms. patient recently discharged from this facility after being treated for pneumonia. Patient seen and examined at the bedside. Patient reported improvement in his shortness of breath since admission and currently on 2 L oxygen NC. Objective vital signs Vital Sign Date Time Temp Pulse Resp B/P (MAP) Pulse Ox O2 Delivery O2 Flow Rate FiO2 01/18/25 12:32 97.7 68 18 125/62 (83) 99 97.7 01/18/25 10:00 Oxymizer 2.0 01/18/25 10:00 N/A Total Intake and Output 01/17/25 01/17/25 01/18/25 15:00 23:00 07:00 Intake Total 150 ml Balance 150 ml medications Current Medications Medications Dose Ordered Sig/Milena Route Start Time Stop Time Status Last Admin Dose Admin Piperacillin Sod/ Tazobactam Sod 100 ml @ 25 mls/hr Q8H IV 01/18/25 02:00 01/18/25 10:55 25 MLS/HR Methylprednisolone Sodium Succinate 60 mg Q6HR IV 01/18/25 00:00 01/18/25 12:46 60 MG Sodium Chloride 10 ml Q8HR IV 01/17/25 22:00 01/18/25 06:03 10 ML Docusate Sodium 100 mg BIDPRN PRN PO 01/17/25 19:15 01/18/25 05:56 100 MG Acetaminophen 650 mg Q6HP PRN PO 01/17/25 19:15 01/17/25 21:31 650 MG Acetaminophen/ Hydrocodone Bitart 1 tab Q4HP PRN PO 01/17/25 19:15 Cancel Ondansetron HCl 4 mg Q4HP PRN IV 01/17/25 19:15 Enoxaparin Sodium 40 mg DAILY SC 01/18/25 10:00 01/18/25 10:55 40 MG Pantoprazole Sodium 40 mg DAILY IV 01/18/25 10:00 01/18/25 10:54 40 MG Azithromycin 250 ml @ 125 mls/hr Q24H IV 01/17/25 19:15 01/17/25 22:15 125 MLS/HR Albuterol 2.5 mg Q6HWA [facility] 01/18/25 06:00 Ipratropium [place] 0.5 mg Q6HWA [facility] 01/18/25 06:00 Oxycodone/ Acetaminophen 2 tab Q6HP PRN PO 01/17/25 23:00 01/18/25 05:58 2 TAB Apixaban 5 mg BID PO 01/18/25 22:00 UNV Enteral Nutritional Formula 240 ml TIDWM PO 01/18/25 18:00 UNV Examination Pt is lying on bed General Appearance: Alert, mildly disoriented but Baseline, Cooperative, Not in acute distress HEENT: Atraumatic, Mucous membranes moist/pink Respiratory: Bilateral crackles Cardiovascular: Regular rate, Normal S1, Normal S2, No murmurs Abdominal: Active bowel sounds, Soft, no distention, no tenderness Extremities: No edema, Normal pulses, No tenderness/swelling Skin: No Significant rash, except past surgical scars Neuro: Normal speech, sensorimotor deficits none Psych/Mental Status: Mental status NL, Mood NL Nurse was there as utility arborist during examination laboratory and microbiology Test 01/18/25 12:49 Range/Units Serum Glucose Pending Labs and/or images reviewed: Labs reviewed by me, Image(s) reviewed by me Problem List/Assessment/Plan Problem List/Assessment/Plan # ? Aspiration pneumonia # ? COPD exacerbation # Acute on chronic hypoxic respiratory failure likely due to below # Acute Gram-positive/negative bacterial PNA # ? Sepsis from above -elevated lactic acid, 500 mL bolus NS -CXR findings -respiratory cultures, pending -Zosyn and azithromycin -breathing treatments -currently on 2 L oxygen NC, maintain saturation between 88-92% # Hypokalemia - Repleting - Monitor lab # severe malnutrition the BMI 17.8 - dietary consult - ensure # history of AFib with RVR with secondary hypercoagulable state - continue Eliquis # Chronic back pain - continue pregabalin GI PPX: Protonix VTE ppx: eloquis home dose Diet: Liquid diet Goals of care addressed with the patient for more than 27 minutes: Full code status Case discussed with , patient and nurse Plan discussed with: Patient My Orders My Orders Orders - [facility] Procedure Category Date Status Time Magnesium LAB 01/18/25 In Process 09:00 Covid19 Antigen Kimmy LAB 01/18/25 Logged 09:00 Rapid Influenza A&B LAB 01/18/25 Logged 09:00 Thyroid Stimulating LAB 01/18/25 In Process Hormone 09:00 Lactic Acid W/ Reflex LAB 01/18/25 Logged Order 09:00 PTPTT LAB 01/18/25 In Process 09:00 Blood Culture RICH 01/18/25 Uncollected 09:01 D-Dimer LAB 01/18/25 In Process 09:03 Clear Liq Diet DIET 01/18/25 Transmitted Lunch Apixaban (Eliquis) PHA 01/18/25 Logged 22:00 Nutritional PHA 01/18/25 Logged Supplements (Ensure 18:00 Date of Service: Jan 18, 2025 Billing Provider: MIGUEL ANGEL MCGINNIS MD Common Visit Codes: [id number] INP/OBS CARE(HIGH) [facility] Jan 18, 2025 13:16 MIGUEL ANGEL MCGINNIS MD Jan 18, 2025 23:49
[2025-01-18 13:31] LABS: Hematocrit 41.4 % (41.0-53.0); Hemoglobin 13.1 g/dL (13.5-17.5); Mean Corpuscular Hemoglobin 27.0 pg (28.0-32.0); Mean Corpuscular Volume 85.3 fL (80.0-100.0); Nucleated Red Blood Cells % 0.0 %
[2025-01-18 13:49] LABS: Alkaline Phosphatase 73 U/L (46-116); Anion Gap 12 (5-15); BUN/Creatinine Ratio 16.7 (10.0-20.0); Blood Urea Nitrogen 12 mg/dL (9-23); Calcium 9.5 mg/dL (8.7-10.4); Carbon Dioxide 22 mmol/L (20-31); Chloride 101 mmol/L (98-107); Potassium 3.8 mmol/L (3.5-5.1); Total Protein 7.4 g/dL (5.7-8.2)
[2025-01-18 13:50] LABS: Albumin 3.8 g/dL (3.2-4.8); Bilirubin, Total 0.8 mg/dL (0.2-1.0)
[2025-01-18 13:52] LABS: Alanine Aminotransferase < 9 U/L (7-40); Glucose 303 mg/dL (74-106); Sodium 135 mmol/L (136-145)
[2025-01-18 13:53] LABS: INR 1.08 (0.9-1.15); Partial Thromboplastin Time 27.3 SEC (24.5-34.5); Prothrombin Time 11.4 sec (9.3-11.8)
[2025-01-18 14:02] LABS: Lactic Acid w/Reflex 2.3 mmol/L (0.4-2.0)
[2025-01-18] MEDS ORDERED: DEXTROSE (50%) 50ML SYRG IV PRN (14:15)
[2025-01-18] MEDS ORDERED: SODIUM CHLORIDE 0.9% 500 ML IV ONE (15:30)
[2025-01-18] MEDS: SODIUM CHLORIDE 0.9% 500 ML IV ONE (15:39)
--- NOTE | 2025-01-18 15:56 | DVH ---
Technique: Real-time ultrasound imaging, with color Doppler and compression of the bilateral common femoral vein, femoral vein, greater saphenous vein, and popliteal vein. Indication: elevated d dimer Comparison: None Findings: There is normal compressibility and flow augmentation in all of the imaged deep veins. There are no f illing defects. Impression: No evidence of DVT in the bilateral lower extremities
[2025-01-18] MEDS: ACCU-CHEK COMFORT CURVE STRIP VI SCH (17:25)
[2025-01-18] MEDS: ENSURE CLEAR Mixed Berry 8oz Carton PO SCH (18:14)
[2025-01-18] MEDS: InsuLIN REG 1unit/0.01ml Soln (100units/ml) SC SCH ×2 (18:15→21:45)
[2025-01-18] MEDS: BUDESONIDE (INHALATION) 0.5 MG/2 ML NEB NEB SCH (18:40)
[2025-01-18] MEDS: APIXABAN 5 MG TAB PO SCH (21:33)
[2025-01-18] MEDS: INSULIN LANTUS (GLARGINE) 1 /0.01ml (100units/ml) SC SCH (21:40)
[2025-01-19] VITALS (13 sets, daily range): BP systolic 107–116; BP diastolic 48–59; PULSE 58–86; RESP 14–19; TEMP 97.5–98; O2SAT 93–100
[2025-01-19 07:29] LABS: Hematocrit 31.3 % (41.0-53.0); Hemoglobin 10.1 g/dL (13.5-17.5); Mean Corpuscular Hemoglobin 27.1 pg (28.0-32.0); Mean Corpuscular Volume 83.7 fL (80.0-100.0); Nucleated Red Blood Cells % 0.0 %
[2025-01-19 07:43] LABS: Albumin 3.3 g/dL (3.2-4.8); Alkaline Phosphatase 54 U/L (46-116); Anion Gap 6 (5-15); BUN/Creatinine Ratio 22.4 (10.0-20.0); Bilirubin, Total 0.6 mg/dL (0.2-1.0); Blood Urea Nitrogen 15 mg/dL (9-23); Calcium 9.4 mg/dL (8.7-10.4); Carbon Dioxide 28 mmol/L (20-31); Chloride 105 mmol/L (98-107); Potassium 3.6 mmol/L (3.5-5.1); Sodium 139 mmol/L (136-145); Total Protein 6.1 g/dL (5.7-8.2)
[2025-01-19 07:44] LABS: Alanine Aminotransferase < 9 U/L (7-40); Glucose 185 mg/dL (74-106)
[2025-01-19] MEDS: INSULIN LANTUS (GLARGINE) 1 /0.01ml (100units/ml) SC ONE (12:13)
--- NOTE | 2025-01-19 12:56 | ECG ---
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
--- NOTE | 2025-01-19 16:22 | DVHPNRES ---
Progress Note Date Seen: Jan 19, 2025 Resident Creating Document: MIGUEL ANGEL MCGINNIS MD Medical Necessity Reason Pt with a Central, PICC or Fol: No Subjective Review of Systems CLAUDE MENDEZ is a 79 years old male with a PMH of HTN, type 2 DM controlled, chronic back pain, dementia, COPD presented to the ED with the chief complaints of worsening of shortness since couple of days. Patient is poor historian, alert and oriented but able to speak in full sentences. Patient denies fever, cough, chest pain, nausea, vomiting, diarrhea and other associated symptoms. patient recently discharged from this facility after being treated for pneumonia. interval events: Patient complains of painful they came with cyst today, he reports having constipation. He has mild abdominal pain and back pain. He denies any chest pain shortness of breath Objective vital signs Vital Sign Date Time Temp Pulse Resp B/P (MAP) Pulse Ox O2 Delivery O2 Flow Rate FiO2 01/19/25 12:53 97.7 65 16 111/48 (69) 98 97.7 01/19/25 10:01 Oxymizer 2.0 01/19/25 10:01 N/A Total Intake and Output 01/18/25 01/18/25 01/19/25 15:00 23:00 07:00 Intake Total 100 ml 900 ml 350 ml Output Total 500 ml 600 ml Balance 100 ml 400 ml -250 ml medications Current Medications Medications Dose Ordered Sig/Milena Route Start Time Stop Time Status Last Admin Dose Admin Piperacillin Sod/ Tazobactam Sod 100 ml @ 25 mls/hr Q8H IV 01/18/25 02:00 01/19/25 09:36 25 MLS/HR Sodium Chloride 10 ml Q8HR IV 01/17/25 22:00 01/19/25 06:23 10 ML Docusate Sodium 100 mg BIDPRN PRN PO 01/17/25 19:15 01/18/25 21:33 100 MG Acetaminophen 650 mg Q6HP PRN PO 01/17/25 19:15 01/17/25 21:31 650 MG Acetaminophen/ Hydrocodone Bitart 1 tab Q4HP PRN PO 01/17/25 19:15 Cancel Ondansetron HCl 4 mg Q4HP PRN IV 01/17/25 19:15 Enoxaparin Sodium 40 mg DAILY SC 01/18/25 10:00 01/19/25 09:37 40 MG Pantoprazole Sodium 40 mg DAILY IV 01/18/25 10:00 01/19/25 09:36 40 MG Azithromycin 250 ml @ 125 mls/hr Q24H IV 01/17/25 19:15 01/17/25 22:15 125 MLS/HR Albuterol 2.5 mg Q6HWA [facility] 01/18/25 06:00 01/19/25 11:51 2.5 MG Ipratropium [place] 0.5 mg Q6HWA [facility] 01/18/25 06:00 01/19/25 11:51 0.5 MG Oxycodone/ Acetaminophen 2 tab Q6HP PRN PO 01/17/25 23:00 01/19/25 12:25 2 TAB Apixaban 5 mg BID PO 01/18/25 22:00 01/19/25 09:36 5 MG Enteral Nutritional Formula 240 ml TIDWM PO 01/18/25 18:00 01/19/25 11:46 240 ML Diagnostic Test (Pha) 1 strip ACHS 01/18/25 17:00 01/19/25 11:41 1 STRIP Insulin Human Regular HS [place] 01/18/25 22:00 01/18/25 21:45 4 UNITS Insulin Human Regular AC [place] 01/18/25 17:00 01/19/25 11:42 15 UNITS Dextrose 50 ml UD PRN IV 01/18/25 14:15 Budesonide 0.5 mg BID [facility] 01/18/25 22:00 01/19/25 06:36 0.5 MG Methylprednisolone Sodium Succinate 40 mg BID IV 01/19/25 22:00 Insulin Glargine 15 units QAM [place] 01/20/25 07:00 Insulin Glargine 10 units HS [place] 01/19/25 22:00 Examination Pt is lying on bed General Appearance: Alert, mildly disoriented but Baseline, Cooperative, Not in acute distress HEENT: Atraumatic, Mucous membranes moist/pink Respiratory: Nasal cannula in place, Bilateral crackles Cardiovascular: Regular rate, Normal S1, Normal S2, No murmurs Abdominal: Active bowel sounds, Soft, no distention, no tenderness Extremities: No edema, Normal pulses, No tenderness/swelling Skin: No Significant rash, except past surgical scars Neuro: Normal speech, sensorimotor deficits none Psych/Mental Status: Mental status NL, Mood NL Nurse was there as associate account director during examination laboratory and microbiology laboratory and microbiology Laboratory Tests 01/19/25 06:13 Test 01/19/25 06:13 Range/Units Serum Glucose 185 #H 74-106 mg/dL Labs and/or images reviewed: Labs reviewed by me, Image(s) reviewed by me Problem List/Assessment/Plan Problem List/Assessment/Plan # ? Aspiration pneumonia # ? COPD exacerbation # Acute on chronic hypoxic respiratory failure likely due to below # Acute Gram-positive/negative bacterial PNA # ? Sepsis from above -elevated lactic acid, 500 mL bolus NS -CXR findings -respiratory cultures, pending -Zosyn and azithromycin -breathing treatments -currently on 2 L oxygen [place], maintain saturation between 88-92% -perform swallow evaluation # Hypokalemia - Repleting - Monitor lab # severe malnutrition the BMI 17.8 - dietary consult - ensure # history of AFib with RVR with secondary hypercoagulable state - continue Eliquis # Chronic back pain - continue pregabalin GI PPX: Protonix VTE ppx: eloquis home dose Diet: Liquid diet Goals of care addressed with the patient for more than 27 minutes: Full code status Case discussed with , patient and nurse Plan discussed with: Patient Plan discussed with: Patient Dietary Evaluation Review Recommendations by RD: Increase Calorie Intake, PPN/TPN Comments: Pt meets criteria for 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 based on wt loss 11.3kg/19.2% in 10 month, moderate muscle wasting, and mild fat depletion Nutrition Recommendation 1) Consider TPN if continue clear liquid diet 2) Advance to No Concentrated Sugar (NCS) diet as medically feasible 3) Monitor PO intake, wt trend, lab values Expected Outcomes/Goals: To maintain/gain weight To meet at least 75% estimated needs within & days FU 2-3 days Interpretation of weight loss: up to 20% in 1 year Body Fat Depletion (Non Severe: Mild Depletion Muscle mass (Non-Severe): Mild Depletion (Moderate) Protein Calorie Malnutrition: Non-Severe Is there a minimum of two crit: Yes Date of Service: Jan 19, 2025 Billing Provider: MIGUEL ANGEL MCGINNIS MD Common Visit Codes: [id number] INP/OBS CARE(HIGH) ANDREW LOZANO RESIDENT Jan 19, 2025 16:22 MIGUEL ANGEL MCGINNIS MD Jan 20, 2025 08:14
[2025-01-19] MEDS: INSULIN LANTUS (GLARGINE) 1 /0.01ml (100units/ml) SC SCH (21:37)
[2025-01-19] MEDS: methylPREDNISolone SOD SUCC 125 MG/2 ML VL IV SCH (21:41)
[2025-01-19] MEDS: AZITHROMYCIN 500MG/ 250ML 250 ML IV SCH (21:45)
[2025-01-20] VITALS (14 sets, daily range): BP systolic 101–133; BP diastolic 51–72; PULSE 55–95; RESP 16–19; TEMP 97.6–98.4; O2SAT 94–100
[2025-01-20] MEDS: INSULIN LANTUS (GLARGINE) 1 /0.01ml (100units/ml) SC SCH (06:16)
[2025-01-20 13:26] LABS: Hematocrit 35.1 % (41.0-53.0); Hemoglobin 11.3 g/dL (13.5-17.5); Mean Corpuscular Hemoglobin 27.2 pg (28.0-32.0); Mean Corpuscular Volume 84.3 fL (80.0-100.0); Nucleated Red Blood Cells % 0.0 %
[2025-01-20 13:42] LABS: Alkaline Phosphatase 58 U/L (46-116); Anion Gap 10 (5-15); BUN/Creatinine Ratio 17.3 (10.0-20.0); Blood Urea Nitrogen 13 mg/dL (9-23); Calcium 9.9 mg/dL (8.7-10.4); Carbon Dioxide 28 mmol/L (20-31); Chloride 102 mmol/L (98-107); Sodium 140 mmol/L (136-145); Total Protein 6.5 g/dL (5.7-8.2)
[2025-01-20 13:43] LABS: Alanine Aminotransferase < 9 U/L (7-40); Albumin 3.6 g/dL (3.2-4.8); Bilirubin, Total 0.4 mg/dL (0.2-1.0); Glucose 191 mg/dL (74-106); Potassium 3.3 mmol/L (3.5-5.1)
[2025-01-20] MEDS ORDERED: POTASSIUM CHL 20 Meq TABLET PO ONE (14:15)
[2025-01-20] MEDS: POTASSIUM EFFERVESENT TAB 25 MEQ PO ONE (15:09)
--- NOTE | 2025-01-20 16:52 | DVHPNRES ---
Progress Note Date Seen: Jan 20, 2025 Resident Creating Document: ANDREW LOZANO RESIDENT Medical Necessity Reason Pt with a Central, PICC or Fol: No Subjective Review of Systems CLAUDE MENDEZ is a 79 years old male with a PMH of HTN, type 2 DM controlled, chronic back pain, dementia, COPD presented to the ED with the chief complaints of worsening of shortness since couple of days. Patient is poor historian, alert and oriented but able to speak in full sentences. Patient denies fever, cough, chest pain, nausea, vomiting, diarrhea and other associated symptoms. patient recently discharged from this facility after being treated for pneumonia. 01/20 interval events: The patient reports improvement in his shortness of breath, even without oxygen he is not feeling shortness of breath, he wants to have some regular diet. Complaints of painful ecchymosis all over his extremities. The patient denies any chest pain, fever, chills, nausea, vomiting or any other complaints at this time. Review of systems: The patient was seen and examined at the bedside. No overnight events. No new complaints reported. ROS is as above and rest of the ROS is negative. Objective vital signs Vital Sign Date Time Temp Pulse Resp B/P (MAP) Pulse Ox O2 Delivery O2 Flow Rate FiO2 01/20/25 13:00 97.7 64 18 112/56 (74) 96 97.7 01/20/25 11:27 Room Air* 0 21 Total Intake and Output 01/19/25 01/19/25 01/20/25 15:00 23:00 07:00 Intake Total 100 ml 700 ml 590 ml Output Total 250 ml 750 ml Balance 100 ml 450 ml -160 ml medications Current Medications Medications Dose Ordered Sig/Milena Route Start Time Stop Time Status Last Admin Dose Admin Piperacillin Sod/ Tazobactam Sod 100 ml @ 25 mls/hr Q8H IV 01/18/25 02:00 01/20/25 16:42 25 MLS/HR Sodium Chloride 10 ml Q8HR IV 01/17/25 22:00 01/20/25 05:37 10 ML Docusate Sodium 100 mg BIDPRN PRN PO 01/17/25 19:15 01/18/25 21:33 100 MG Acetaminophen 650 mg Q6HP PRN PO 01/17/25 19:15 01/17/25 21:31 650 MG Acetaminophen/ Hydrocodone Bitart 1 tab Q4HP PRN PO 01/17/25 19:15 Cancel Ondansetron HCl 4 mg Q4HP PRN IV 01/17/25 19:15 Enoxaparin Sodium 40 mg DAILY SC 01/18/25 10:00 01/20/25 09:55 40 MG Pantoprazole Sodium 40 mg DAILY IV 01/18/25 10:00 01/20/25 09:54 40 MG Albuterol 2.5 mg Q6HWA [facility] 01/18/25 06:00 01/20/25 11:27 2.5 MG Ipratropium [place] 0.5 mg Q6HWA [facility] 01/18/25 06:00 01/20/25 11:27 0.5 MG Oxycodone/ Acetaminophen 2 tab Q6HP PRN PO 01/17/25 23:00 01/20/25 13:13 2 TAB Apixaban 5 mg BID PO 01/18/25 22:00 01/20/25 09:54 5 MG Enteral Nutritional Formula 240 ml TIDWM PO 01/18/25 18:00 01/20/25 10:56 240 ML Diagnostic Test (Pha) 1 strip ACHS 01/18/25 17:00 01/20/25 16:29 1 STRIP Insulin Human Regular HS [place] 01/18/25 22:00 01/19/25 21:38 3 UNITS Insulin Human Regular AC [place] 01/18/25 17:00 01/20/25 16:35 2 UNITS Dextrose 50 ml UD PRN IV 01/18/25 14:15 Budesonide 0.5 mg BID [facility] 01/18/25 22:00 01/20/25 06:29 0.5 MG Methylprednisolone Sodium Succinate 40 mg BID IV 01/19/25 22:00 01/20/25 09:54 40 MG Insulin Glargine 15 units QAM [place] 01/20/25 07:00 01/20/25 06:16 15 UNITS Insulin Glargine 10 units HS [place] 01/19/25 22:00 01/19/25 21:37 10 UNITS Azithromycin 250 ml @ 125 mls/hr DAILY@2200 IV 01/19/25 22:00 01/19/25 21:45 125 MLS/HR Examination Pt is lying on bed General Appearance: Alert, mildly disoriented but Baseline, Cooperative, Not in acute distress HEENT: Atraumatic, Mucous membranes moist/pink Respiratory: Nasal cannula in place, Bilateral crackles Cardiovascular: Regular rate, Normal S1, Normal S2, No murmurs Abdominal: Active bowel sounds, Soft, no distention, no tenderness Extremities: No edema, Normal pulses, No tenderness/swelling Skin: No Significant rash, except past surgical scars Neuro: Normal speech, sensorimotor deficits none Psych/Mental Status: Mental status NL, Mood NL Nurse was there as property management assistant during examination laboratory and microbiology laboratory and microbiology Laboratory Tests 01/20/25 13:15 Test 01/20/25 13:15 Range/Units Serum Glucose 191 H 74-106 mg/dL Labs and/or images reviewed: Labs reviewed by me, Image(s) reviewed by me Problem List/Assessment/Plan Problem List/Assessment/Plan # ? Aspiration pneumonia # ? COPD exacerbation # Acute on chronic hypoxic respiratory failure likely due to below # Acute Gram-positive/negative bacterial PNA # ? Sepsis from above -elevated lactic acid, 500 mL bolus NS -CXR findings -respiratory cultures, pending -Zosyn and azithromycin -breathing treatments -currently on 2 L oxygen [place], maintain saturation between 88-92% -perform swallow evaluation # Hypokalemia - Repleting - Monitor lab # severe malnutrition the BMI 17.8 - dietary consult - ensure # history of AFib with RVR with secondary hypercoagulable state - continue Eliquis # Chronic back pain - continue pregabalin GI PPX: Protonix VTE ppx: eloquis home dose Diet: Liquid diet Goals of care addressed with the patient for more than 27 minutes: Full code status Case discussed with , patient and nurse Plan discussed with: Patient Plan discussed with: Patient, Other (RN) Dietary Evaluation Review Recommendations by RD: Increase Calorie Intake, PPN/TPN Comments: Pt meets criteria for 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 based on wt loss 11.3kg/19.2% in 10 month, moderate muscle wasting, and mild fat depletion Nutrition Recommendation 1) Consider TPN if continue clear liquid diet 2) Advance to No Concentrated Sugar (NCS) diet as medically feasible 3) Monitor PO intake, wt trend, lab values Expected Outcomes/Goals: To maintain/gain weight To meet at least 75% estimated needs within & days FU 2-3 days Interpretation of weight loss: up to 20% in 1 year Body Fat Depletion (Non Severe: Mild Depletion Muscle mass (Non-Severe): Mild Depletion (Moderate) Protein Calorie Malnutrition: Non-Severe Is there a minimum of two crit: Yes Date of Service: Jan 20, 2025 Billing Provider: MIGUEL ANGEL MCGINNIS MD Common Visit Codes: [id number] INP/OBS CARE(HIGH) ANDREW LOZANO RESIDENT Jan 20, 2025 16:52 MIGUEL ANGEL MCGINNIS MD Jan 20, 2025 18:16
[2025-01-21] VITALS (12 sets, daily range): BP systolic 115–156; BP diastolic 53–99; PULSE 62–96; RESP 16–19; TEMP 97.5–98.4; O2SAT 92–100
[2025-01-21 02:29] LABS: COVID19 ANTIGEN SOFIA FIA NEGATIVE (NEGATIVE)
[2025-01-21 15:10] LABS: Hematocrit 32.7 % (41.0-53.0); Hemoglobin 10.7 g/dL (13.5-17.5); Mean Corpuscular Hemoglobin 27.4 pg (28.0-32.0); Mean Corpuscular Volume 84.0 fL (80.0-100.0); Nucleated Red Blood Cells % 0.0 %
[2025-01-21 15:28] LABS: Alkaline Phosphatase 48 U/L (46-116); Anion Gap 7 (5-15); BUN/Creatinine Ratio 15.9 (10.0-20.0); Bilirubin, Total 0.4 mg/dL (0.2-1.0); Blood Urea Nitrogen 11 mg/dL (9-23); Calcium 9.3 mg/dL (8.7-10.4); Carbon Dioxide 29 mmol/L (20-31); Chloride 103 mmol/L (98-107); Glucose 221 mg/dL (74-106); Potassium 3.5 mmol/L (3.5-5.1); Sodium 139 mmol/L (136-145)
[2025-01-21 15:29] LABS: Alanine Aminotransferase < 9 U/L (7-40); Albumin 3.0 g/dL (3.2-4.8); Total Protein 5.5 g/dL (5.7-8.2)
--- NOTE | 2025-01-21 19:10 | DVHPNRES ---
Progress Note Date Seen: Jan 21, 2025 Resident Creating Document: ANDREW LOZANO RESIDENT Medical Necessity Reason Pt with a Central, PICC or Fol: No Subjective Review of Systems CLAUDE MENDEZ is a 79 years old male with a PMH of HTN, type 2 DM controlled, chronic back pain, dementia, COPD presented to the ED with the chief complaints of worsening of shortness since couple of days. Patient is poor historian, alert and oriented but able to speak in full sentences. Patient denies fever, cough, chest pain, nausea, vomiting, diarrhea and other associated symptoms. patient recently discharged from this facility after being treated for pneumonia. 01/21 interval events: The patient reports improvement in his symptoms. He wanted to have some regular diet The patient denies any chest pain, fever, chills, nausea, vomiting or any other complaints at this time. Review of systems: The patient was seen and examined at the bedside. No overnight events. No new complaints reported. ROS is as above and rest of the ROS is negative. Objective vital signs Vital Sign Date Time Temp Pulse Resp B/P (MAP) Pulse Ox O2 Delivery O2 Flow Rate FiO2 01/21/25 16:33 98.1 72 19 156/73 (100) 96 98.1 01/21/25 10:13 Room Air* 0 21 Total Intake and Output 01/20/25 01/20/25 01/21/25 15:00 23:00 07:00 Intake Total 100 ml 520 ml 1487 ml Output Total 1000 ml 1200 ml Balance 100 ml -480 ml 287 ml medications Current Medications Medications Dose Ordered Sig/Milena Route Start Time Stop Time Status Last Admin Dose Admin Piperacillin Sod/ Tazobactam Sod 100 ml @ 25 mls/hr Q8H IV 01/18/25 02:00 01/21/25 09:32 25 MLS/HR Sodium Chloride 10 ml Q8HR IV 01/17/25 22:00 01/21/25 15:32 10 ML Docusate Sodium 100 mg BIDPRN PRN PO 01/17/25 19:15 01/18/25 21:33 100 MG Acetaminophen 650 mg Q6HP PRN PO 01/17/25 19:15 01/17/25 21:31 650 MG Acetaminophen/ Hydrocodone Bitart 1 tab Q4HP PRN PO 01/17/25 19:15 Cancel Ondansetron HCl 4 mg Q4HP PRN IV 01/17/25 19:15 Enoxaparin Sodium 40 mg DAILY SC 01/18/25 10:00 01/21/25 09:32 40 MG Pantoprazole Sodium 40 mg DAILY IV 01/18/25 10:00 01/21/25 09:32 40 MG Albuterol 2.5 mg Q6HWA [facility] 01/18/25 06:00 01/21/25 10:13 2.5 MG Ipratropium [place] 0.5 mg Q6HWA [facility] 01/18/25 06:00 01/21/25 10:13 0.5 MG Oxycodone/ Acetaminophen 2 tab Q6HP PRN PO 01/17/25 23:00 01/21/25 15:31 2 TAB Apixaban 5 mg BID PO 01/18/25 22:00 01/21/25 09:31 5 MG Enteral Nutritional Formula 240 ml TIDWM PO 01/18/25 18:00 01/21/25 18:00 240 ML Diagnostic Test (Pha) 1 strip ACHS 01/18/25 17:00 01/21/25 16:56 1 STRIP Insulin Human Regular HS [place] 01/18/25 22:00 01/20/25 21:53 3 UNITS Insulin Human Regular AC [place] 01/18/25 17:00 01/21/25 16:56 2 UNITS Dextrose 50 ml UD PRN IV 01/18/25 14:15 Budesonide 0.5 mg BID [facility] 01/18/25 22:00 01/21/25 06:13 0.5 MG Methylprednisolone Sodium Succinate 40 mg BID IV 01/19/25 22:00 01/21/25 09:31 40 MG Insulin Glargine 15 units QAM [place] 01/20/25 07:00 01/20/25 06:16 15 UNITS Insulin Glargine 10 units HS [place] 01/19/25 22:00 01/20/25 21:53 10 UNITS Azithromycin 250 ml @ 125 mls/hr DAILY@2200 IV 01/19/25 22:00 01/20/25 21:58 125 MLS/HR Examination General Appearance: Alert, disoriented but at Baseline, Cooperative, Not in acute distress HEENT: Atraumatic, Mucous membranes moist/pink Respiratory: Nasal cannula in place, Bilateral crackles Cardiovascular: Regular rate, Normal S1, Normal S2, No murmurs Abdominal: Active bowel sounds, Soft, no distention, no tenderness Extremities: No edema, Normal pulses, No tenderness/swelling Skin: Multiple ecchymoses of different sizes noted on his upper extremities, except past surgical scars Neuro: Normal speech, sensorimotor deficits none Psych/Mental Status: Mental status NL, Mood NL Nurse was there as hair spring cutter during examination laboratory and microbiology Laboratory Tests 01/21/25 15:00 Test 01/21/25 15:00 Range/Units Serum Glucose 221 H 74-106 mg/dL Labs and/or images reviewed: Labs reviewed by me, Image(s) reviewed by me Problem List/Assessment/Plan Problem List/Assessment/Plan # ? Aspiration pneumonia # ? COPD exacerbation # Acute on chronic hypoxic respiratory failure likely due to below # Acute Gram-positive/negative bacterial PNA # ? Sepsis from above -elevated lactic acid, 500 mL bolus NS -CXR findings -respiratory cultures, pending -Zosyn and azithromycin -breathing treatments -currently on 2 L oxygen [place], maintain saturation between 88-92% -Swallow evaluation performed: Diet with thin liquids suggested. 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 based on wt loss 11.3kg/19.2% in 10 month, moderate muscle wasting, and mild fat depletion Nutrition Recommendation 1) Consider TPN if continue clear liquid diet 2) Advance to No Concentrated Sugar (NCS) diet as medically feasible 3) Monitor PO intake, wt trend, lab values Expected Outcomes/Goals: To maintain/gain weight To meet at least 75% estimated needs within & days FU 2-3 days Interpretation of weight loss: up to 20% in 1 year Body Fat Depletion (Non Severe: Mild Depletion Muscle mass (Non-Severe): Mild Depletion (Moderate) Protein Calorie Malnutrition: Non-Severe Is there a minimum of two crit: Yes Addendum Addendum Addendum I was physically present for the kunz portions of the service provided to patient by THE RESIDENT. I have reviewed the documentation, discussed the case with resident and agree with the resident's documentation except as noted. Also the patient's clinical case was discussed with the patient's nurse. This medical document was created using an electronic medical record system with computerized dictation system. Although this document has been carefully reviewed, there might still be some phonetic and typographical errors. These areas are purely typographical due to imperfections of the software programs, and do not reflect any compromise in the patient's medical care. Late signature. Date of Service: Jan 21, 2025 Billing Provider: EVELIA RACHEL MD Common Visit Codes: [id number] INP/OBS CARE(HIGH) Secondary Visit Codes: [id number] CARE PLAN 30 MINUTES (20 minutes) ANDREW LOZANO Jan 21, 2025 19:10 EVELIA RACHEL MD Jan 23, 2025 22:15
[2025-01-22] VITALS (9 sets, daily range): BP systolic 141–156; BP diastolic 65–76; PULSE 60–89; RESP 16–18; TEMP 97.8–98; O2SAT 96–100
[2025-01-22] MEDS ORDERED: DOXY1CAP58 PO (09:31)
[2025-01-22] MEDS ORDERED: AUG875T PO (09:31)
--- NOTE | 2025-01-22 17:24 | DVHDSRES ---
Discharge Summary Date of Admission Resident Creating Document: ANDREW LOZANO Jan 17, 2025 at 19:09 Date of Discharge: Jan 22, 2025 Admitting Diagnosis SOB Labs/Diagnostic Data: Laboratory Results Test 01/22/25 05:49 01/21/25 15:00 01/21/25 00:20 01/18/25 14:32 POC Glucose 126 mg/dl (70-106) White Blood Count 5.4 10^3/uL (4.4-10.8) Red Blood Count 3.89 10^6/uL (4.5-5.90) Hemoglobin 10.7 g/dL (13.5-17.5) Hematocrit 32.7 % (41.0-53.0) Mean Corpuscular Volume 84.0 fL (80.0-100.0) Mean Corpuscular Hemoglobin 27.4 pg (28.0-32.0) Mean Corpuscular Hemoglobin Concent 32.6 g/dL (32.0-36.0) Red Cell Distribution Width 17.5 % (11.8-14.3) Platelet Count 213 10^3/uL (140-450) Mean Platelet Volume 7.7 fL (6.9-10.8) Neutrophils (%) (Auto) 92.3 % (37.0-80.0) Lymphocytes (%) (Auto) 3.9 % (10.0-50.0) Monocytes (%) (Auto) 3.8 % (0.0-12.0) Eosinophils (%) (Auto) 0.0 % (0.0-7.0) Basophils (%) (Auto) 0.0 % (0.0-2.0) Neutrophils # (Auto) 5.0 10 ^3/uL (1.6-8.6) Lymphocytes # (Auto) 0.2 10 ^3/uL (0.4-5.4) Monocytes # (Auto) 0.2 10 ^3/uL (0-1.3) Eosinophils # (Auto) 0 10 ^3/uL (0-0.8) Basophils # (Auto) 0 10 ^3/uL (0-0.2) Nucleated Red Blood Cells 0.0 % Sodium Level 139 mmol/L (136-145) Potassium Level 3.5 mmol/L (3.5-5.1) Chloride Level 103 mmol/L (98-107) Carbon Dioxide Level 29 mmol/L (20-31) Anion Gap 7 (5-15) Blood Urea Nitrogen 11 mg/dL (9-23) Creatinine 0.69 mg/dL (0.700-1.30) Glomerular Filtration Rate Calc 94 mL/min (>90) BUN/Creatinine Ratio 15.9 (10.0-20.0) Serum Glucose 221 mg/dL (74-106) Calcium Level 9.3 mg/dL (8.7-10.4) Total Bilirubin 0.4 mg/dL (0.2-1.0) Aspartate Amino Transferase (AST) 8 U/L (13-40) Alanine Aminotransferase (ALT) < 9 U/L (7-40) Alkaline Phosphatase 48 U/L (46-116) Total Protein 5.5 g/dL (5.7-8.2) Albumin 3.0 g/dL (3.2-4.8) Influenza Type A Antigen Negative (Negative) Influenza Type B Antigen Negative (Negative) SARS-CoV-2 Antigen (Rapid) Negative (NEGATIVE) Lactic Acid Level 2.3 mmol/L (0.4-2.0) Test 01/18/25 12:49 01/17/25 22:53 01/17/25 22:25 01/17/25 19:30 Prothrombin Time 11.4 sec (9.3-11.8) Prothrombin Time INR 1.08 (0.9-1.15) Activated Partial Thromboplast Time 27.3 SEC (24.5-34.5) D-Dimer, Quantitative 1.16 mg/L FEU (0.0-0.49) Magnesium Level 2.3 mg/dL (1.6-2.6) Thyroid Stimulating Hormone (TSH) 0.84 uIU/mL (0.55-4.78) Troponin I High Sensitivity 16 ng/L (</=54) Urine Color Yellow (Yellow) Urine Clarity Clear (Clear) Urine pH 7.0 (5.0-9.0) Urine Specific [place] 1.013 (1.001-1.035) Urine Protein Negative (Negative) Urine Ketones 1+ (Negative) Urine Blood Negative /uL (Negative) Urine Nitrite Negative (Negative) Urine Bilirubin Negative (Negative) Urine Urobilinogen 4 mg/dL (Negative) Urine Leukocyte Esterase Negative /uL (Negative) Urine RBC 2 /hpf (0 - 3) Urine Microscopic WBC < 1 /HPF (0-3) Urine Squamous Epithelial Cells Few /hpf (<5) Urine Bacteria None seen /hpf (None Seen) Urine Glucose Normal mg/dL (Normal) Blood Gas Specimen Type Arterial Blood Gas Sample Site Right radial Blood Gas Patient Temperature 37.0 Arterial Blood Date Drawn [id number] Arterial Blood pH 7.497 (7.350-7.450) Arterial Blood Partial Pressure CO2 32.9 mmHg (35.0-48.0) Arterial Blood Partial Pressure O2 61.8 mmHg (83.0-108.0) Arterial Blood HCO3 24.9 mmol/L (21.0-28.0) Arterial Blood Oxygen Saturation 91.1 % (94.0-98.0) Arterial Blood Base Excess 2.0 mmol/L (-2.0-3.0) Arterial Blood Oxyhemoglobin 90.1 % (94.0-98.0) Arterial Blood Carboxyhemoglobin 1.1 % (0.5-1.5) Arterial Blood Methemoglobin 0.0 % (0.0-1.5) Ifeanyi Test Modified Blood Gas Total Hemoglobin 11.30 g/dL (13.5-17.5) Blood Gas Liter Flow 5.00 Blood Gas Modality Oxymizer FiO2 % 46.0 Test 01/17/25 17:57 Differential Total Cells Counted 100.0 (100) Neutrophils % (Manual) 93 (37.0-80.0) Band Neutrophils % (Manual) 0 Lymphocytes % (Manual) 4 (10.0-50.0) Monocytes % (Manual) 3 (0-12) Eosinophils % (Manual) 0 (0-7) Basophils % (Manual) 0 (0.0-2.0) Metamyelocytes % (manual) 0 Myelocytes % (Manual) 0 Promyelocytes % (Manual) 0 Blast Cells % (Manual) 0 Reactive Lymphocytes 0 Platelet Estimate Adequate B-Type Natriuretic Peptide 81.03 pg/mL (0-100) Other Laboratory Tests 01/21/25 15:00 Brief Hx & Hospital Course: CLAUDE MENDEZ is a 79 years old male with a PMH of HTN, type 2 DM controlled, chronic back pain, dementia, COPD presented to the ED with the chief complaints of worsening of shortness since couple of days. Patient is poor historian, alert and oriented but able to speak in full sentences. Patient denies fever, cough, chest pain, nausea, vomiting, diarrhea and other associated symptoms. patient recently discharged from this facility after being treated for pneumonia. This patient was admitted with suspected aspiration pneumonia and COPD exacerbation presenting with acute on chronic hypoxic respiratory failure likely secondary to pneumonia workup was notable for elevated lactic acid, and the patient received normal saline. Chest x-ray suggested pneumonia. And respiratory cultures sent. Extremity venous study ruled out DVT bilaterally. The patient was treated with Zosyn and azithromycin along with breathing treatments. Supplemental oxygen was administered via nasal cannula 2 L/min, start getting oxygen saturation between 88-92%. A swallow evaluation was completed and a diet of thin liquids was recommended. The speech therapy also recommended mechanical soft diet. The patient found to have hypokalemia which was repleted with ongoing monitoring of labs. Additionally severe mild nutrition was noted with a BMI of 17.8, a dietary consult was obtained and ensure supplementation initiated. The patient has a known history of AFib with RVR and secondary hypercoagulable state and was continued on home dose of Eliquis. For chronic back pain pregabalin was continued. GI prophylaxis with Protonix was provided and VT prophylaxis was maintained with Eliquis. The patient was discharged on a mechanical soft diet with thin liquids. Discharge plan was discussed with the patient and family and they verbalized understanding. During the time of discharge patient was hemodynamically stable. The patient was advised to follow-up with the PCP within 1 week. Physical exam on the day of discharge: Patient was lying in bed. General Appearance: Alert, mildly disoriented but Baseline, Cooperative, Not in acute distress HEENT: Atraumatic, Mucous membranes moist/pink Respiratory: Nasal cannula in place, Bilateral crackles Cardiovascular: Regular rate, Normal S1, Normal S2, No murmurs Abdominal: Active bowel sounds, Soft, no distention, no tenderness Extremities: No edema, Normal pulses, No tenderness/swelling Skin: Multiple ecchymoses of different sizes noted on his upper extremities, except past surgical scars Neuro: Normal speech, sensorimotor deficits none Psych/Mental Status: Mental status NL, Mood NL Nurse was there as acid purification equipment operator during examination Discussed with Dr. Rachel Operations or Procedures Extremity venous study: No evidence of DVT in the bilateral lower extremities Chest x-ray: 1. Increased interstitial prominence throughout the right chest in the left base may represent pneumonia. Cardiac size is within normal limits. EKG:Sinus tachycardia Repol abnrm suggests ischemia, diffuse leads Prolonged QT interval Electronically Signed Condition at Discharge: Stable Final Diagnosis/Problems List Aspiration pneumonia COPD exacerbation Acute on chronic hypoxic respiratory failure due to below Acute Gram-positive or Gram-negative bacterial pneumonia Sepsis from above Hypokalemia repleted Severe malnutrition BMI 17.8 He history of AFib with RVR with secondary hypercoagulable state Chronic back pain Discharge Disposition: Home Discharge Instruct/Medications Diet: See Comment Diet comment: Mechanical soft diet with thin liquid Activity: No Restrictions, As Tolerated Follow Up/Referral: Follow-up with PCP in 1 week Medications: As per EMR Scheduled Amoxicillin & Pot Clavulanate (Augmentin Tablet), 875 MG PO BID Apixaban Base (Eliquis), 5 MG PO BID, (Reported) Atorvastatin Calcium (Atorvastatin Calcium), 1 TAB PO DAILY, (Reported) Doxycycline (Monohydrate) (Doxycycline), 100 MG PO BID Glipizide (Glipizide), 1 TAB PO DAILY, (Reported) Scheduled PRN Pregabalin (Pregabalin), 1 CAP PO BIDPRN PRN for neuropathy, (Reported) Discharge Statement: "Patient was advised to return to the ER or call 911 if any headaches, dizziness, shortness of breath, chest pain, abdominal pain, bleeding, fevers, or worsening of medical condition. Patient was counseled about treatment plan, medications, possible side effects, patientverbalized understanding. All questions were answered to the best of my ability. This discharge took greater then 30 minutes in planning, reviewing documentation, counseling the patient, and discussing with other team members." ASSESSMENT ASSESSMENT Assessment Aspiration pneumonia Addendum Addendum Addendum I was physically present for the kunz portions of the service provided to patient by THE RESIDENT. I have reviewed the documentation, discussed the case with resident and agree with the resident's documentation except as noted. Also the patient's clinical case was discussed with the patient's nurse. This medical document was created using an electronic medical record system with computerized dictation system. Although this document has been carefully reviewed, there might still be some phonetic and typographical errors. These areas are purely typographical due to imperfections of the software programs, and do not reflect any compromise in the patient's medical care. Late signature. Date of Service: Jan 22, 2025 Billing Provider: EVELIA RACHEL MD Common Visit Codes: 60840-VCW/OBS DISCH DAY >30min BLAKE,ANDREW RESIDENT Jan 22, 2025 17:24 EVELIA RACHEL MD Jan 23, 2025 22:17
== END 2025-01-22 11:39 | disposition home or self-care (01) | DRG 871 ==
LOC: EDBD 15:53 → ER 15:53 → OVERFLOW 19:09 → WEST WING 01-18 03:50
PROVIDERS: ADMIT Internal Medicine; ATTEND Emergency Medicine
DX: A41.59 Other Gram-negative sepsis (principal); E43 Unspecified severe protein-calorie malnutrition; J15.69 Pneumonia due to other Gram-negative bacteria; J96.21 Acute and chronic respiratory failure with hypoxia; J69.0 Pneumonitis due to inhalation of food and vomit; J15.9 Unspecified bacterial pneumonia; Z68.1 Body mass index [BMI] 19.9 or less, adult; J44.1 Chronic obstructive pulmonary disease with (acute) exacerbation; D68.69 Other thrombophilia; Z20.822 Contact with and (suspected) exposure to COVID-19; I10 Essential (primary) hypertension; E11.9 Type 2 diabetes mellitus without complications; F03.90 Unspecified dementia, unspecified severity, without behavioral disturbance, psychotic disturbance, mood disturbance, and anxiety; E87.6 Hypokalemia; I48.91 Unspecified atrial fibrillation; G89.29 Other chronic pain; Z87.891 Personal history of nicotine dependence
CPT/HCPCS: 36415; 36600; 71045; 80053; 81001; 82805; 82962; 83605; 83735; 83880; 84443; 84484; 85007; 85025; 85027; 85379; 85610; 85730; 87040; 87426; 87804; 93005; 93970; 94640; 96365; 96375; G0378; J1815; J2405; J2470; J2543

== ENCOUNTER 2025-02-07 22:33 | Inpatient (IN) | payer MEDICARE, BC ==
[~2025-02-07] VITALS: Ht 172.7 cm; Wt 56.8 kg
[~2025-02-07 22:33] MED LIST changes: +AUG875T PO; +DOXY1CAP58 PO
[2025-02-07 23:30] VITALS: PULSE 106; O2SAT 98
[2025-02-08] VITALS (11 sets, daily range): BP systolic 115–125; BP diastolic 53–72; PULSE 77–96; RESP 14–22; TEMP 98.2; O2SAT 93–100
--- NOTE | 2025-02-08 00:03 | ED.PDOC ---
SOB-HPI HPI Comments 79-year-old male with a history of dementia, pneumonia, COPD, diabetes, depression, and anxiety was brought in by ambulance with a chief complaining of shortness of breath the associated epigastric/left lower quadrant abdominal pain. EMS states that patient's symptoms started about 1 hour before arrival to the ED patient was noted to be saturating approximately 82% on scene patient was put on a non rebreather given breathing treatments. Patient's oxygen saturation was noted to have gone up to 97% on high-flow nasal cannula after treatments, and noted to be currently sat about 96% on 6 L O2. Patient states he uses 2-3 L at home. No other associated symptoms, modifiers, recent injuries or sick contacts present at this time. Chief Complaint: Shortness of Breath Time Seen by MD: 23:59 Primary Care Provider: UNKNOWN Reviewed notes: Nurses Notes, Tip Fixer Notes, Medications, Allergies Information Source: Patient, Emergency Med Personnel Mode of Arrival: EMS Severity: Moderate Timing: Hours Duration: Since onset, Hours Context: Spontaneous Onset PE Risk Factors: None History of: COPD, Anxiety Prehospital treatment: 12 Lead EKG, Accucheck, Breathing Tx, Electrician Apprentice Powerhouse, Oxygen Modifying Factors: Exertion Associated Signs and Symptoms: None If cough with SOB: Productive Past Medical History PAST MEDICAL HISTORY: COPD, Dementia, DM, HTN Surgical History: Unknown Family History Family History: Reviewed,noncontributory to illness, Unknown Social History Smoker: Quit Greater Than 1 Year Alcohol: Denies ETOH Use Drugs: Denies Drug Use Lives In: Home All Other Systems: Reviewed and Negative (Comprehensive systems review obtained and negative except for what is stated in the HPI.) Physical Exam General Appearance: No Apparent Distress HEENT: Other (Pupils and face symmetric. Moist mucous membranes.) Neck: Full Range of Motion, Normal Inspection Respiratory: Decreased Breath Sounds, No Respiratory Distress, Rhonchi Cardiovascular: No Edema, No JVD, Tachycardia Breast Exam: Deferred Gastrointestinal: Epigastric, LLQ, Soft, Tenderness Genitalia: Deferred Pelvic: Deferred Rectal: Deferred Extremities: Normal inspection, Normal range of motion, Non-tender, No pedal edema Neurologic: Alert (Oriented x3), Normal Affect, Normal Mood, Other (Moves all extremities. No gross focal deficit.) Cerebellar Function: NOT DONE Reflexes: NOT DONE Skin: Dry, Pallor, Warm Lymphatic: NOT DONE EKG EKG : Comments Sinus tach, rate 122, normal WA and QRS intervals, QTC 458, normal axis, normal QRS, nonspecific T change. Was a procedure done? Was a procedure done?: No Differential Dx Differential Diagnosis: Anxiety, Asthma, Bronchitis, CHF, COPD, Panic Attack, Pneumonia, Pneumothorax, Pulmonary Embolism, Respiratory Distress, URI X-Ray, Labs, Meds, VS Vital Signs Date Time Temp Pulse Resp B/P (MAP) Pulse Ox O2 Delivery O2 Flow Rate FiO2 02/08/25 04:00 96 02/08/25 04:00 110/56 02/08/25 03:00 111/68 02/08/25 02:47 98.2 100 20 109/51 (70) 98 98.2 02/08/25 02:12 100 20 109/51 02/08/25 01:42 108 24 111/46 02/08/25 01:02 20 94 Oxymizer 6 N/A 02/08/25 00:00 130 02/07/25 23:30 106 98 Non-Rebreather 10 N/A 02/07/25 23:30 98.2 106 22 137/53 (81) 99 98.2 02/07/25 22:44 98.9 117 22 144/77 97 98.9 02/07/25 22:43 122 Lab Test 02/08/25 04:16 02/08/25 02:08 02/08/25 01:00 Range/Units Sodium Level 140 138 136-145 mmol/L Potassium Level 4.0 3.1 L 3.5-5.1 mmol/L Chloride Level 100 97 L 98-107 mmol/L Carbon Dioxide Level 27 29 20-31 mmol/L Anion Gap 13 12 5-15 Blood Urea Nitrogen 6 L 6 L 9-23 mg/dL Creatinine 0.59 L 0.55 L 0.700-1.30 mg/dL Glomerular Filtration Rate Calc 98 100 >90 mL/min BUN/Creatinine Ratio 10.2 10.9 10.0-20.0 Serum Glucose 184 H 166 H 74-106 mg/dL Calcium Level 8.0 L 8.4 L 8.7-10.4 mg/dL Total Bilirubin 0.4 0.4 0.2-1.0 mg/dL Aspartate Amino Transferase (AST) 14 12 L 13-40 U/L Alanine Aminotransferase (ALT) < 9 < 9 7-40 U/L Alkaline Phosphatase 84 84 46-116 U/L Troponin I High Sensitivity 93 *H 79 *H 61 *H </=54 ng/L Total Protein 6.8 6.9 5.7-8.2 g/dL Albumin 3.3 3.2 3.2-4.8 g/dL White Blood Count 12.4 H 4.4-10.8 10^3/uL Red Blood Count 3.58 L 4.5-5.90 10^6/uL Hemoglobin 9.9 L 13.5-17.5 g/dL Hematocrit 30.3 L 41.0-53.0 % Mean Corpuscular Volume 84.5 80.0-100.0 fL Mean Corpuscular Hemoglobin 27.6 L 28.0-32.0 pg Mean Corpuscular Hemoglobin Concent 32.6 32.0-36.0 g/dL Red Cell Distribution Width 17.7 H 11.8-14.3 % Platelet Count 432 140-450 10^3/uL Mean Platelet Volume 6.7 L 6.9-10.8 fL Neutrophils (%) (Auto) 89.7 H 37.0-80.0 % Lymphocytes (%) (Auto) 4.3 L 10.0-50.0 % Monocytes (%) (Auto) 5.9 0.0-12.0 % Eosinophils (%) (Auto) 0.0 0.0-7.0 % Basophils (%) (Auto) 0.1 0.0-2.0 % Neutrophils # (Auto) 11.1 H 1.6-8.6 10 ^3/uL Lymphocytes # (Auto) 0.5 0.4-5.4 10 ^3/uL Monocytes # (Auto) 0.7 0-1.3 10 ^3/uL Eosinophils # (Auto) 0 0-0.8 10 ^3/uL Basophils # (Auto) 0 0-0.2 10 ^3/uL Nucleated Red Blood Cells 0.0 % B-Type Natriuretic Peptide 132.08 0-100 pg/mL Current Medications Medications (Trade) Dose Ordered Sig/Milena Route Start Time Stop Time Status Last Admin Albuterol (Ventolin Medneb) 5 mg ONCE ONCE NEB 02/08/25 00:45 02/08/25 00:48 DC 02/08/25 01:02 Ipratropium [place] (Atrovent Medneb) 0.5 mg ONCE ONCE NEB 02/08/25 00:45 02/08/25 00:48 DC 02/08/25 01:02 Methylprednisolone Sodium Succinate (Solu Medrol) 125 mg ONCE ONCE IV 02/08/25 00:45 02/08/25 00:48 DC 02/08/25 01:40 Sodium Chloride 1,000 ml @ 1,000 mls/hr Q1H ONCE IV 02/08/25 00:45 02/08/25 01:44 DC 02/08/25 01:42 Morphine Sulfate 2 mg ONCE ONCE IV 02/08/25 00:45 02/08/25 00:48 DC 02/08/25 01:42 Ondansetron HCl (Zofran) 4 mg ONCE ONCE IV 02/08/25 00:45 02/08/25 00:48 DC 02/08/25 01:40 Pantoprazole Sodium (Protonix) 40 mg ONCE ONCE IV 02/08/25 00:45 02/08/25 00:48 DC 02/08/25 01:41 Potassium Bicarbonate (Klor-Con/Ef) 50 meq ONCE ONCE PO 02/08/25 03:00 02/08/25 03:04 DC 02/08/25 03:00 Aspirin 325 mg ONCE ONCE PO 02/08/25 03:00 02/08/25 03:04 DC 02/08/25 03:00 Nitroglycerin (Nitro-Bid) 1 pkg ONCE ONCE TD 02/08/25 03:00 02/08/25 03:04 DC 02/08/25 03:00 Ceftriaxone Sodium 50 ml @ 100 mls/hr ONCE ONCE IV 02/08/25 03:00 02/08/25 03:29 DC 02/08/25 03:00 Azithromycin 250 ml @ 125 mls/hr ONCE ONCE IV 02/08/25 03:00 02/08/25 04:59 DC 02/08/25 03:00 PATIENT: CLAUDE MENDEZ ACCT: [id number] UNIT: [id number] : 1945 LOC: ER ROOM / BED: / AGE / SEX: 79 / M ADM STATUS: REG ER SERVICE [id number] ORDERING PHYSICIAN: LYNDA COLEY MD PROCEDURE(s): CXRP - CHEST PORTABLE REASON: sob ORDER NUMBER(s): [id number], ACCESSION NUMBER(s): [id number] CHEST RADIOGRAPH Indication: sob Technique: 2 views Comparison: XY CHEST PORTABLE on DOS: 01/17/25, XY CHEST XRAY 1 VIEW on DOS: 01/12/25, XY CHEST PORTABLE on DOS: 01/07/25, XY CHEST XRAY 1 VIEW on DOS: 04/12/24, XY CHEST PORTABLE on DOS: 04/11/24 FINDINGS: Lines and Tubes: Overlying leads. Lungs: Development of focal left suprahilar nodular consolidation. Similar appearance of coarse reticular and patchy opacities throughout both lungs, with volume loss in the right lung. Pleura: No visualized effusion or pneumothorax ; the left costophrenic angle is excluded. Cardiomediastinal contours: Unremarkable. Bones: No acute osseous abnormality. IMPRESSION: 1. New left suprahilar opacity superimposed on a background of coarse reticular opacities. The nonspecific radiographic findings suggest pneumonia with underlying chronic fibrosis or edema. ENT: CLAUDE MENDEZ ACCT: [id number] UNIT: [id number] : 1945 LOC: ER ROOM / BED: / AGE / SEX: 79 / M ADM STATUS: REG ER SERVICE ORDERING PHYSICIAN: LYNDA COLEY MD PROCEDURE(s): ABPL - CT AB PEL WO CON-NO ORAL OR IV REASON: LLQ pain ORDER NUMBER(s): [id number], ACCESSION NUMBER(s): [id number] Exam: CT CT AB PEL WO CON-NO ORAL OR IV History: LLQ pain Comparison Study: CT CT AB PEL WITH ORAL CON ONLY on DOS: 01/09/25, CT CT CHEST/AB/PL W CON- IV ONLY on DOS: 04/04/24 TECHNIQUE: Multidetector CT of the abdomen and pelvis was performed from lung bases to pubic symphysis. Imaging was performed without IV contrast. Axial, coronal, and sagittal multiplanar reformats were obtained from the axial data set by the technologist. RADIATION DOSE: CTDI vol 5.07 mGy. DLP 292.66 mGy.cm Findings: Limited evaluation of the solid organs in the absence of IV contrast. Liver: Unremarkable. Spleen: Unremarkable. Pancreas: Unremarkable. Gallbladder: Probable biliary sludge/ cholelithiasis. Adrenals: Not well seen. Kidneys: Unremarkable. Pelvic Viscera: Unremarkable. Vasculature: Moderate aortoiliac atherosclerosis. Retroperitoneum: Unremarkable. Bowel: No bowel obstruction. Musculoskeletal: Heterogeneous appearance of the osseous structures. Soft tissues: Diffuse subcutaneous edema. Lungs: Bronchiectasis. Subpleural reticular opacities. Scattered pulmonary opacities most pronounced within the left lower lobe. Impression: 1. Limited evaluation as above. No acute abdominopelvic abnormality identified. 2. Chronic lung disease with scattered pulmonary opacities most suggestive of infectious/inflammatory process in the appropriate clinical setting. Further clinical correlation is suggested. 3. Incidental findings as detailed. X-Ray, Labs, Meds, VS Comment 79-year-old male with a history of dementia, pneumonia, COPD, diabetes, depression, and anxiety was brought in by ambulance with a chief complaining of shortness a breath the associated epigastric/left lower quadrant abdominal pain. Vitals remarkable for heart rate 117, respiratory rate 22, BP 144/77 Exam remarkable for diminished breath sounds and rhonchi, tachycardia, epigastric and left lower quadrant tenderness Rhythm strip independently interpreted by me: Sinus tach, rate one hundred twenty-two, no ectopy. Chest x-ray IMPRESSION: 1. New left suprahilar opacity superimposed on a background of coarse reticular opacities. The nonspecific radiographic findings suggest pneumonia with underlying chronic fibrosis or edema. CT abdomen and pelvis CBC remarkable for WBC 12.4, metabolic panel remarkable for potassium 3.1, BNP 132.08, serial troponins 61 and 79 Patient treated with the following in the ED: Albuterol 5 mg/Atrovent 0.5 mg nebulized, Solu-Medrol 125 mg IV, morphine 2 mg IV, Zofran 4 mg IV, aspirin 325 mg p.o., nitro bid 1/2 inch to chest wall, Rocephin 1 g IV, Zithromax 500 mg IV On re-evaluation, patient is not in any respiratory distress and saturating norm ally on nasal cannula oxygen. Plan is to admit the patient for ongoing serial troponins, respiratory support, IV antibiotics, and Cardiology evaluation. Time of 1ST Reevaluation: 00:30 Reevaluation 1ST: Unchanged Patient Education/Counseling: Diagnosis, Treatment, Need For Follow Up Family Education/Counseling: No Family Present SEPSIS Sepsis Screen Date sepsis recognized/suspect: Feb 07, 2025 Time Sepsis recognized/suspect: 2332 Recent Procedure: No On Antibiotic Therapy: No Respiratory Rate >20: No Heart Rate >90: No Temp<36 C (96.8 F) or >38.3 C: No SBP <90 or MAP <65 mmHG: No New Acute Mental Status Change: No Is the patient on CPAP, BIPAP,: No Physician Orders Chest Portable (02/08/25 00:45) Urinalysis (02/08/25 00:45) Ct Ab Pel Wo Con-No Oral Or Iv (02/08/25 00:45) Methylprednisolone Sod Succ (Solu Medrol (02/08/25 00:45) Vital Signs Date Time Temp Pulse Resp B/P (MAP) Pulse Ox O2 Delivery O2 Flow Rate FiO2 02/08/25 04:00 96 02/08/25 04:00 110/56 02/08/25 03:00 111/68 02/08/25 02:47 98.2 100 20 109/51 (70) 98 98.2 02/08/25 02:12 100 20 109/51 02/08/25 01:42 108 24 111/46 02/08/25 01:02 20 94 Oxymizer 6 N/A 02/08/25 00:00 130 02/07/25 23:30 106 98 Non-Rebreather 10 N/A 02/07/25 23:30 98.2 106 22 137/53 (81) 99 98.2 02/07/25 22:44 98.9 117 22 144/77 97 98.9 02/07/25 22:43 122 Laboratory Tests Test 02/08/25 01:00 White Blood Count 12.4 10^3/uL (4.4-10.8) H Medications Medications Dose Ordered Sig/Milena Route Start Time Stop Time Status Last Admin Dose Admin Albuterol 5 mg ONCE ONCE NEB 02/08/25 00:45 02/08/25 00:48 DC 02/08/25 01:02 Aspirin 325 mg ONCE ONCE PO 02/08/25 03:00 02/08/25 03:04 DC 02/08/25 03:00 Azithromycin 250 ml @ 125 mls/hr ONCE ONCE IV 02/08/25 03:00 02/08/25 04:59 DC 02/08/25 03:00 Ceftriaxone Sodium 50 ml @ 100 mls/hr ONCE ONCE IV 02/08/25 03:00 02/08/25 03:29 DC 02/08/25 03:00 Ipratropium [place] 0.5 mg ONCE ONCE NEB 02/08/25 00:45 02/08/25 00:48 DC 02/08/25 01:02 Methylprednisolone Sodium Succinate 125 mg ONCE ONCE IV 02/08/25 00:45 02/08/25 00:48 DC 02/08/25 01:40 Morphine Sulfate 2 mg ONCE ONCE IV 02/08/25 00:45 02/08/25 00:48 DC 02/08/25 01:42 Nitroglycerin 1 pkg ONCE ONCE TD 02/08/25 03:00 02/08/25 03:04 DC 02/08/25 03:00 Ondansetron HCl 4 mg ONCE ONCE IV 02/08/25 00:45 02/08/25 00:48 DC 02/08/25 01:40 Pantoprazole Sodium 40 mg ONCE ONCE IV 02/08/25 00:45 02/08/25 00:48 DC 02/08/25 01:41 Potassium Bicarbonate 50 meq ONCE ONCE PO 02/08/25 03:00 02/08/25 03:04 DC 02/08/25 03:00 Sodium Chloride 1,000 ml @ 1,000 mls/hr Q1H ONCE IV 02/08/25 00:45 02/08/25 01:44 DC 02/08/25 01:42 Departure 1 Departure Time of Disposition: 02:00 Impression: Primary Impression: Pneumonia Additional Impressions: COPD exacerbation Elevated troponin Electrolyte imbalance Abdominal pain Disposition: ADMITTED INPATIENT Admit to: Tele Condition: Guarded Critical Care Note Critical Care Time?: Yes (35 min-critical care time only) Critical care comment: Critical care time including multiple bedside re-evaluations, review of lab and imaging studies, discussion of the case with the admitting provider. Patient is high risk for respiratory decompensation. Stability Stability form required: No Heart Score Heart Score: Heart Score Response (Comments) Value History N/A 0 EKG N/A 0 Age N/A 0 Risk Factors N/A 0 Troponin N/A 0 Total 0 I personally scribed for LYNDA COLEY MD ([email or web address]) on 02/08/25 at 00:03. Electronically submitted by Jerome Lacey ([email or web address]). I personally scribed for LYNDA COLEY MD ([email or web address]) on 02/08/25 at 00:42. Electronically submitted by Jerome Lacey ([email or web address]). I personally scribed for LYNDA COLEY MD ([email or web address]) on 02/08/25 at 01:55. Electronically submitted by Jerome Lacey ([email or web address]). LYNDA COLEY MD Feb 08, 2025 00:03
[2025-02-08] MEDS: ALBUTEROL SULF 2.5 MG/0.5ML(0.5%) NEB SOLN NEB ONE (01:01)
[2025-02-08] MEDS: IPRATROPIUM BROM 0.5 MG/2.5ML INH SOL NEB ONE (01:01)
[2025-02-08 01:29] LABS: Hematocrit 30.3 % (41.0-53.0); Hemoglobin 9.9 g/dL (13.5-17.5); Mean Corpuscular Hemoglobin 27.6 pg (28.0-32.0); Mean Corpuscular Volume 84.5 fL (80.0-100.0); Nucleated Red Blood Cells % 0.0 %
[2025-02-08] MEDS: ONDANSETRON HCL 4 MG/2 ML VIAL IV ONE (01:40)
[2025-02-08] MEDS: methylPREDNISolone SOD SUCC 125 MG/2 ML VL IV ONE (01:40)
[2025-02-08 01:41] LABS: Albumin 3.2 g/dL (3.2-4.8); Alkaline Phosphatase 84 U/L (46-116); Anion Gap 12 (5-15); BUN/Creatinine Ratio 10.9 (10.0-20.0); Bilirubin, Total 0.4 mg/dL (0.2-1.0); Carbon Dioxide 29 mmol/L (20-31); Sodium 138 mmol/L (136-145); Total Protein 6.9 g/dL (5.7-8.2)
[2025-02-08] MEDS: PANTOPRAZOLE 40 MG/10 ML VIAL INJ IV ONE (01:41)
--- NOTE | 2025-02-08 01:41 | DVH ---
CHEST RADIOGRAPH Indication: sob Technique: 2 views Comparison: XY CHEST PORTABLE on DOS: 01/17/25, XY CHEST XRAY 1 VIEW on DOS: 01/12/25, XY CHEST PORTABLE on DOS: 01/07/25, XY CHEST XRAY 1 VIEW on DOS: 04/12/24, XY CHEST PORTABLE on DOS: 04/11/24 FINDINGS: Lines and Tubes: Overlying leads. Lungs: Development of focal left suprahilar nodular consolidation. Similar appearance of coarse reti cular and patchy opacities throughout both lungs, with volume loss in the right lung. Pleura: No visualized effusion or pneumothorax ; the left costophrenic angle is excluded. Cardiomediastinal contours: Unremarkable. Bones: No acute osseous abnormality. IMPRESSION: 1. New left suprahilar opacity superimposed on a background of coarse reticular opacities. The nonspe cific radiographic findings suggest pneumonia with underlying chronic fibrosis or edema.
[2025-02-08] MEDS: MORPHINE SULFATE INJ 2 MG/ml SYRG IV ONE (01:42)
[2025-02-08] MEDS: SODIUM CHLORIDE 0.9% 1,000 ML IV ONE (01:42)
[2025-02-08 01:44] LABS: Alanine Aminotransferase < 9 U/L (7-40); Blood Urea Nitrogen 6 mg/dL (9-23); Calcium 8.4 mg/dL (8.7-10.4); Chloride 97 mmol/L (98-107); Glucose 166 mg/dL (74-106); Potassium 3.1 mmol/L (3.5-5.1)
--- NOTE | 2025-02-08 01:48 | DVH ---
Exam: CT CT AB PEL WO CON-NO ORAL OR IV History: LLQ pain Comparison Study: CT CT AB PEL WITH ORAL CON ONLY on DOS: 01/09/25, CT CT CHEST/AB/PL W CON- IV ONLY on DOS: 04/04/24 TECHNIQUE: Multidetector CT of the abdomen and pelvis was performed from lung bases to pubic symphysi s. Imaging was performed without IV contrast. Axial, coronal, and sagittal multiplanar reformats were obtained from the axial data set by the technologist. RADIATION DOSE: CTDI vol 5.07 mGy. DLP 292.66 mGy.cm Findings: Limited evaluation of the solid organs in the absence of IV contrast. Liver: Unremarkable. Spleen: Unremarkable. Pancreas: Unremarkable. Gallbladder: Probable biliary sludge/ cholelithiasis. Adrenals: Not well seen. Kidneys: Unremarkable. Pelvic Viscera: Unremarkable. Vasculature: Moderate aortoiliac atherosclerosis. Retroperitoneum: Unremarkable. Bowel: No bowel obstruction. Musculoskeletal: Heterogeneous appearance of the osseous structures. Soft tissues: Diffuse subcutaneous edema. Lungs: Bronchiectasis. Subpleural reticular opacities. Scattered pulmonary opacities most pronounced within the left lower lobe. Impression: 1. Limited evaluation as above. No acute abdominopelvic abnormality identified. 2. Chronic lung disease with scattered pulmonary opacities most suggestive of infectious/inflammatory process in the appropriate clinical setting. Further clinical correlation is suggested. 3. Incidental findings as detailed.
[2025-02-08] MEDS: NITROGLYCERIN 2% OINT 1GM PKG TD ONE (03:00)
[2025-02-08] MEDS: AZITHROMYCIN 500MG/ 250ML 250 ML IV ONE (03:00)
[2025-02-08] MEDS: POTASSIUM EFFERVESENT TAB 25 MEQ PO ONE (03:00)
[2025-02-08] MEDS: cefTRIAXone 1GM/50ML D5W 50 ML IV ONE (03:00)
[2025-02-08] MEDS ORDERED: NITROGLYCERIN 0.4 MG SL TAB SL PRN (04:45)
[2025-02-08] MEDS ORDERED: DEXTROSE (50%) 50ML SYRG IV PRN (04:45)
[2025-02-08] MEDS ORDERED: ONDANSETRON HCL 4 MG/2 ML VIAL IV PRN (04:45)
[2025-02-08] MEDS ORDERED: ACETAMINOPHEN 325 MG TAB PO PRN (04:45)
[2025-02-08] MEDS ORDERED: MORPHINE SULFATE INJ 2 MG/ml SYRG IV PRN (04:45)
[2025-02-08] MEDS ORDERED: HYDROcodone-ACET 5/325MG TAB PO PRN (04:45)
--- NOTE | 2025-02-08 05:10 | DVHHP2 ---
History of Present Illness Reason for Visit: COPD with acute exacerbation History of Present Illness The patient is a 79-year-old male with past medical history of COPD on oxygen 2- 3 L/min at home, dementia, diabetes mellitus, depression, anxiety, and hypertension who presented to [facility] ED with complaint of s hortness of breaths. Patient reports symptoms progressively get worse with desaturating on oxygen 2 L/min, increased work of breathing, associated epigastric and left lower quadrant abdominal pain. Patient was seen and evaluated in the ED and was placed on a non-rebreather and given breathing treatment. Laboratory data shows WBC 12.4, hemoglobin 9.9, hematocrit 30.3, platelets 332, sodium 138, potassium 3.1, BUN 6, creatinine 0.55, glucose 166, calcium 8.4, troponin 79, BNP 132.08, blood pressure 109/57, heart rate 96, temperature 98.2 F, O2 saturation 94% on oxygen. Chest x-ray revealing new left suprahilar opacity superimposed on a background of coarse reactive color opacities; the nonspecific radiographic findings suggest pneumonia with underlying chronic fibrosis edema. Patient was started on IV antibiotic regimen azithromycin, please see medication orders section in the computer. On my assessment, patient denied chest pain, no headache, no dizziness, currently on oxygen, no nausea, no vomiting, no fever, no chills. Patient was admitted for further evaluation and medical management. Past Medical History Depression, Anxiety, COPD, Dementia, DM, HTN Past Surgical History Unknown Family History Reviewed, noncontributory to the management of this case. Past Social History The patient lives at home, denies smoking, alcohol or illicit drugs abuse. Review of Systems Constitutional: Yes: Weakness; No: Fever, Chills, Sweats, Malaise, Other Eyes: No: Pain, Vision change, Conjunctivae inflammation, Eyelid inflammation, Other, Redness ENT: No: Ear pain, Ear discharge, Nose pain, Nose discharge, Nose congestion, Mouth pain, Mouth swelling, Throat pain, Throat swelling, Other Respiratory: Shortness of breath, SOB with excertion, Other (SOB at rest); No: Cough, Dry, Wheezing, Hemoptysis, Pleuritic Pain, Sputum, Wheezing Cardiovascular: No: Chest Pain, Palpitations, Orthopnea, Paroxysmal Noc. Dyspnea, Edema, Lt Headedness, Other Gastrointestinal: Abdominal Pain; No: Nausea, Vomiting, Diarrhea, Constipation, Melena, Hematochezia, Other Genitourinary: No Dysuria, No Frequency, No Incontinence, No Hematuria, No Retention, No Other Musculoskeletal: No: other, neck pain, shoulder pain, arm pain, back pain, hand pain, leg pain, foot pain Skin: No: Rash, Lesions, Jaundice, Bruising, Other Neurological: No: Weakness, Numbness, Incoordination, Change in speech, Confusion, Seizures, Other Allergies: Coded Allergies: NO KNOWN ALLERGIES (Unverified , 04/02/24) Exam Vital Signs Vital Signs Date Time Temp Pulse Resp B/P (MAP) Pulse Ox O2 Delivery O2 Flow Rate FiO2 02/08/25 04:00 96 02/08/25 03:00 111/68 02/08/25 02:47 98.2 20 98 98.2 02/08/25 01:02 Oxymizer 6 N/A General Appearance: Alert, Oriented X3, Cooperative, No acute distress HEENT: Atraumatic, PERRLA, EOMI, Mucous membr. moist/pink Respiratory: Normal air movement, Other (Diminished breath sounds) Cardiovascular: Normal S1, Normal S2, No murmurs, Other (Irregular rate) Abdominal: Normal bowel sounds, Soft, No tenderness, No hepatospenomegaly, No masses Extremities: No clubbing, No cyanosis, No edema, Normal pulses, No tenderness/swelling Skin: No rashes, No significant lesion Neuro: Normal speech, Normal tone, Sensation intact, Cranial nerves 3-12 NL, Reflexes 2+, Other (Generalized weakness) Psych/Mental Status: Mental status NL, Mood NL Labs/Xrays Labs Test 02/08/25 04:16 02/08/25 01:00 Range/Units White Blood Count 12.4 H 4.4-10.8 10^3/uL Red Blood Count 3.58 L 4.5-5.90 10^6/uL Hemoglobin 9.9 L 13.5-17.5 g/dL Hematocrit 30.3 L 41.0-53.0 % Mean Corpuscular Volume 84.5 80.0-100.0 fL Mean Corpuscular Hemoglobin 27.6 L 28.0-32.0 pg Mean Corpuscular Hemoglobin Concent 32.6 32.0-36.0 g/dL Red Cell Distribution Width 17.7 H 11.8-14.3 % Platelet Count 432 140-450 10^3/uL Mean Platelet Volume 6.7 L 6.9-10.8 fL Neutrophils (%) (Auto) 89.7 H 37.0-80.0 % Lymphocytes (%) (Auto) 4.3 L 10.0-50.0 % Monocytes (%) (Auto) 5.9 0.0-12.0 % Eosinophils (%) (Auto) 0.0 0.0-7.0 % Basophils (%) (Auto) 0.1 0.0-2.0 % Neutrophils # (Auto) 11.1 H 1.6-8.6 10 ^3/uL Lymphocytes # (Auto) 0.5 0.4-5.4 10 ^3/uL Monocytes # (Auto) 0.7 0-1.3 10 ^3/uL Eosinophils # (Auto) 0 0-0.8 10 ^3/uL Basophils # (Auto) 0 0-0.2 10 ^3/uL Nucleated Red Blood Cells 0.0 % Sodium Level 138 136-145 mmol/L Potassium Level 3.1 L 3.5-5.1 mmol/L Chloride Level 97 L 98-107 mmol/L Carbon Dioxide Level 29 20-31 mmol/L Anion Gap 12 5-15 Blood Urea Nitrogen 6 L 9-23 mg/dL Creatinine 0.55 L 0.700-1.30 mg/dL Glomerular Filtration Rate Calc 100 >90 mL/min BUN/Creatinine Ratio 10.9 10.0-20.0 Serum Glucose 166 H 74-106 mg/dL Calcium Level 8.4 L 8.7-10.4 mg/dL Total Bilirubin 0.4 0.2-1.0 mg/dL Aspartate Amino Transferase (AST) 12 L 13-40 U/L Alanine Aminotransferase (ALT) < 9 7-40 U/L Alkaline Phosphatase 84 46-116 U/L B-Type Natriuretic Peptide 132.08 0-100 pg/mL Total Protein 6.9 5.7-8.2 g/dL Albumin 3.2 3.2-4.8 g/dL PATIENT: CLAUDE MENDEZ ACCT: [id number] UNIT: [id number] : 1945 LOC: ER ROOM / BED: / AGE / SEX: 79 / M ADM STATUS: REG ER SERVICE [id number] ORDERING PHYSICIAN: LYNDA COLEY MD PROCEDURE(s): ABPL - CT AB PEL WO CON-NO ORAL OR IV REASON: LLQ pain ORDER NUMBER(s): [id number], ACCESSION NUMBER(s): [id number] Exam: CT CT AB PEL WO CON-NO ORAL OR IV History: LLQ pain Comparison Study: CT CT AB PEL WITH ORAL CON ONLY on DOS: 01/09/25, CT CT CHEST/AB/PL W CON- IV ONLY on DOS: 04/04/24 TECHNIQUE: Multidetector CT of the abdomen and pelvis was performed from lung bases to pubic symphysis. Imaging was performed without IV contrast. Axial, coronal, and sagittal multiplanar reformats were obtained from the axial data set by the technologist. RADIATION DOSE: CTDI vol 5.07 mGy. DLP 292.66 mGy.cm Findings: Limited evaluation of the solid organs in the absence of IV contrast. Liver: Unremarkable. Spleen: Unremarkable. Pancreas: Unremarkable. Gallbladder: Probable biliary sludge/ cholelithiasis. Adrenals: Not well seen. Kidneys: Unremarkable. Pelvic Viscera: Unremarkable. Vasculature: Moderate aortoiliac atherosclerosis. Retroperitoneum: Unremarkable. Bowel: No bowel obstruction. Musculoskeletal: Heterogeneous appearance of the osseous structures. Soft tissues: Diffuse subcutaneous edema. Lungs: Bronchiectasis. Subpleural reticular opacities. Scattered pulmonary opacities most pronounced within the left lower lobe. Impression: 1. Limited evaluation as above. No acute abdominopelvic abnormality identified. 2. Chronic lung disease with scattered pulmonary opacities most suggestive of infectious/inflammatory process in the appropriate clinical setting. Further clinical correlation is suggested. 3. Incidental findings as detailed. ORDERING PHYSICIAN: LYNDA COLEY MD PROCEDURE(s): CXRP - CHEST PORTABLE REASON: sob ORDER NUMBER(s): [id number], ACCESSION NUMBER(s): [id number] CHEST RADIOGRAPH Indication: sob Technique: 2 views Comparison: XY CHEST PORTABLE on DOS: 01/17/25, XY CHEST XRAY 1 VIEW on DOS: 01/12/25, XY CHEST PORTABLE on DOS: 01/07/25, XY CHEST XRAY 1 VIEW on DOS: 04/12/24, XY CHEST PORTABLE on DOS: 04/11/24 FINDINGS: Lines and Tubes: Overlying leads. Lungs: Development of focal left suprahilar nodular consolidation. Similar appearance of coarse reticular and patchy opacities throughout both lungs, with volume loss in the right lung. Pleura: No visualized effusion or pneumothorax; the left costophrenic angle is excluded. Cardiomediastinal contours: Unremarkable. Bones: No acute osseous abnormality. IMPRESSION: 1. New left suprahilar opacity superimposed on a background of coarse reticular opacities. The nonspecific radiographic findings suggest pneumonia with underlying chronic fibrosis or edema. SEPSIS Sepsis Screen Date sepsis recognized/suspect: Feb 07, 2025 Time Sepsis recognized/suspect: 2332 Recent Procedure: No On Antibiotic Therapy: No Respiratory Rate >20: No Heart Rate >90: No Temp<36 C (96.8 F) or >38.3 C: No SBP <90 or MAP <65 mmHG: No New Acute Mental Status Change: No Is the patient on CPAP, BIPAP,: No Physician Orders Electrocardigram (02/07/25 23:14) Chest Portable (02/08/25 00:45) Urinalysis (02/08/25 00:45) Ct Ab Pel Wo Con-No Oral Or Iv (02/08/25 00:45) Methylprednisolone Sod Succ (Solu Medrol (02/08/25 00:45) Troponin-I Hs (02/08/25 03:45) Azithromycin 500mg/ 250ml (Zithromax 50 (02/08/25 03:00) Complete Blood Count (02/08/25 04:38) Comprehensive Metabolic Panel (02/08/25 04:38) Aspirin Tablet (02/08/25 10:00) Pantoprazole (Protonix) (02/08/25 10:00) Ceftriaxone Ivpb Rocephin (02/08/25 09:00) Azithromycin 500mg/ 250ml (Zithromax 50 (02/08/25 10:00) Methylprednisolone Sod Succ (Solu Medrol (02/08/25 06:00) Famotidine Injection (Pepcid Injection) (02/08/25 10:00) Levalbuterol Hcl (Xopenex Medneb) (02/08/25 06:00) Consistent Carb(Ccho)Diabetes (02/08/25 Breakfast) Glucose Blood (Accu-Chek Comfort Curve T (02/08/25 07:00) Bedtime Insulin Scale (02/08/25 22:00) Moderate Insulin Ss (02/08/25 07:00) Dextrose 50% Syringe (02/08/25 04:45) Admit (02/08/25 04:38) Allergies (02/08/25 04:38) Code Status (02/08/25 04:38) Sodium Chloride Lock (Saline Lock Ns) (02/08/25 06:00) Oxygen Per Hour (02/08/25 04:38) Hydrocodone-Acet 5/325mg Tab (Tunica 5/32 (02/08/25 04:45) Ondansetron Hcl (Zofran) (02/08/25 04:45) Docusate Sodium Capsule (Colace Capsule) (02/08/25 04:45) Fall Risk Precautions In Place QSHIFT (02/08/25 04:38) Complete Blood Count (02/09/25 04:00) Comprehensive Metabolic Panel (02/09/25 04:00) Condition: Serious (02/08/25 04:38) Acetaminophen Tablet (Tylenol Tablet) (02/08/25 04:45) Maintain Bed Rest (02/08/25 04:38) Sequential Compression Device (02/08/25 ) Nitroglycerin Sublingual (Ntrostat Subli (02/08/25 04:45) Morphine Sulfate Injection (02/08/25 04:45) Stat Ekg For Chest Pain (02/08/25 04:38) Notify Md Of Changes From Base (02/08/25 04:38) Manager Reliability For 24 Hours (02/08/25 04:38) Emergency Dysrhythmia Protocol (02/08/25 04:38) Rhythm Strips Once Every Shift (02/08/25 04:38) Oxygen By Nasal Cannula (02/08/25 04:38) Vital Signs Date Time Temp Pulse Resp B/P (MAP) Pulse Ox O2 Delivery O2 Flow Rate FiO2 02/08/25 04:00 96 02/08/25 03:00 111/68 02/08/25 02:47 98.2 100 20 109/51 (70) 98 98.2 02/08/25 02:12 100 20 109/51 02/08/25 01:42 108 24 111/46 02/08/25 01:02 20 94 Oxymizer 6 N/A 02/08/25 00:00 130 02/07/25 23:30 106 98 Non-Rebreather 10 N/A 02/07/25 23:30 98.2 106 22 137/53 (81) 99 98.2 02/07/25 22:44 98.9 117 22 144/77 97 98.9 02/07/25 22:43 122 Laboratory Tests Test 02/08/25 01:00 White Blood Count 12.4 10^3/uL (4.4-10.8) H Medications Medications Dose Ordered Sig/Milena Route Start Time Stop Time Status Last Admin Dose Admin Albuterol 5 mg ONCE ONCE NEB 02/08/25 00:45 02/08/25 00:48 DC 02/08/25 01:02 5 MG Aspirin 325 mg ONCE ONCE PO 02/08/25 03:00 02/08/25 03:04 DC 02/08/25 03:00 325 MG Ceftriaxone Sodium 50 ml @ 100 mls/hr ONCE ONCE IV 02/08/25 03:00 02/08/25 03:29 DC 02/08/25 03:00 100 MLS/HR Ipratropium [place] 0.5 mg ONCE ONCE NEB 02/08/25 00:45 02/08/25 00:48 DC 02/08/25 01:02 0.5 MG Methylprednisolone Sodium Succinate 125 mg ONCE ONCE IV 02/08/25 00:45 02/08/25 00:48 DC 02/08/25 01:40 125 MG Morphine Sulfate 2 mg ONCE ONCE IV 02/08/25 00:45 02/08/25 00:48 DC 02/08/25 01:42 2 MG Nitroglycerin 1 pkg ONCE ONCE TD 02/08/25 03:00 02/08/25 03:04 DC 02/08/25 03:00 1 PKG Ondansetron HCl 4 mg ONCE ONCE IV 02/08/25 00:45 02/08/25 00:48 DC 02/08/25 01:40 4 MG Pantoprazole Sodium 40 mg ONCE ONCE IV 02/08/25 00:45 02/08/25 00:48 DC 02/08/25 01:41 40 MG Potassium Bicarbonate 50 meq ONCE ONCE PO 02/08/25 03:00 02/08/25 03:04 DC 02/08/25 03:00 50 MEQ Sodium Chloride 1,000 ml @ 1,000 mls/hr Q1H ONCE IV 02/08/25 00:45 02/08/25 01:44 DC 02/08/25 01:42 1,000 MLS/HR Assessment/Plan Assessment/Plan COPD with acute exacerbation Elevated troponin Electrolyte imbalance Abdominal pain Leukocytosis, unspecified Pneumonia, unspecified organisms Plan 1. Admit to telemetry unit 2. Breathing treatment 3. Pain control management 4. IV antibiotic management 5. Management of fluids and electrolytes 6. Consultation for hospitalist 7. Diagnostic test chest x-ray 8. DVT prophylaxis-on aspirin 9. Repeat labs CBC, CMP in a.m. 10. Home medication reviewed and reconciled 11. Continue with current medical management 12. Treatment plan discussed with patient and RN. Patient verbalized understanding. Plan discussed with: Patient, Other (RN) My Orders Orders - MCKENZIE ESPARZA DNP Procedure Category Date Status Time Complete Blood Count LAB 02/08/25 Verified 04:38 Comprehensive LAB 02/08/25 Verified Metabolic Panel 04:38 Aspirin Tablet PHA 02/08/25 Verified 10:00 Pantoprazole PHA 02/08/25 Verified (Protonix) 10:00 Ceftriaxone Ivpb PHA 02/08/25 Verified Rocephin 09:00 Azithromycin 500mg/ PHA 02/08/25 Verified 250ml (Zithromax 50 10:00 Methylprednisolone PHA 02/08/25 Verified Sod Succ (Solu Medrol 06:00 Famotidine Injection PHA 02/08/25 Verified (Pepcid Injection) 10:00 Levalbuterol Hcl PHA 02/08/25 Verified (Xopenex Medneb) 06:00 Consistent DIET 02/08/25 Verified Carb(Ccho)Diabetes Breakfast Glucose Blood PHA 02/08/25 Verified (Accu-Chek Comfort 07:00 Bedtime Insulin Scale PHA 02/08/25 Verified 22:00 Moderate Insulin Ss PHA 02/08/25 Verified 07:00 Dextrose 50% Syringe PHA 02/08/25 Verified 04:45 Admit ADMIT 02/08/25 Verified 04:38 Allergies VANNESA 02/08/25 Verified 04:38 Code Status CODE 02/08/25 Verified 04:38 Sodium Chloride Lock PHA 02/08/25 Verified (Saline Lock Ns) 06:00 Oxygen Per Hour RT 02/08/25 Verified 04:38 Hydrocodone-Acet PHA 02/08/25 Verified 5/325mg Tab (Tunica 04:45 Ondansetron Hcl [facility] 02/08/25 Verified (Zofran) 04:45 Docusate Sodium [facility] 02/08/25 Verified Capsule (Colace 04:45 Fall Risk Precautions [facility] 02/08/[address] 04:38 Complete Blood Count LAB 02/09/25 Verified 04:00 Comprehensive LAB 02/09/25 Verified Metabolic Panel 04:00 Condition: Serious [facility] 02/08/25 Verified 04:38 Acetaminophen Tablet [facility] 02/08/25 Verified (Tylenol Tablet) 04:45 Maintain Bed Rest [facility] 02/08/25 Verified 04:38 Sequential [facility] 02/08/25 Verified Compression Device Nitroglycerin [facility] 02/08/25 Verified Sublingual (Ntrostat 04:45 Morphine Sulfate [facility] 02/08/25 Verified Injection 04:45 Stat Ekg For Chest [facility] 02/08/25 Verified Pain 04:38 Notify Md Of Changes [facility] 02/08/25 Verified From Base 04:38 Manager Reliability For [facility] 02/08/25 Verified 24 Hours 04:38 Emergency Dysrhythmia [facility] 02/08/25 Verified Protocol 04:38 Rhythm Strips Once [facility] 02/08/25 Verified Every Shift 04:38 Oxygen By Nasal 02/08/25 Verified Cannula 04:38 Problem List: (1) COPD with acute exacerbation (2) Elevated troponin (3) Abdominal pain (4) Electrolyte imbalance (5) Leukocytosis, unspecified (6) Pneumonia, unspecified organism Date of Service: Feb 08, 2025 Billing Provider: MCKENZIE ESPARZA DNP Common Visit Codes: [id number] INP/OBS CARE (HIGH) MCKENZIE ESPARZA DNP Feb 08, 2025 05:10
[2025-02-08 05:33] LABS: Albumin 3.3 g/dL (3.2-4.8); Alkaline Phosphatase 84 U/L (46-116); Anion Gap 13 (5-15); Carbon Dioxide 27 mmol/L (20-31); Chloride 100 mmol/L (98-107); Potassium 4.0 mmol/L (3.5-5.1); Sodium 140 mmol/L (136-145)
[2025-02-08 05:36] LABS: Alanine Aminotransferase < 9 U/L (7-40); Calcium 8.0 mg/dL (8.7-10.4); Glucose 184 mg/dL (74-106)
[2025-02-08] MEDS: SODIUM CHLOR 0.9% PF (SALINE LOCK) 10ML VIAL/SYR IV SCH (06:00)
[2025-02-08] MEDS: methylPREDNISolone SOD SUCC 40 MG/ML VL IV SCH (06:08)
[2025-02-08] MEDS: ACCU-CHEK COMFORT CURVE STRIP VI SCH (06:08)
[2025-02-08] MEDS: InsuLIN REG 1unit/0.01ml Soln (100units/ml) SC SCH ×2 (06:12→21:22)
[2025-02-08 06:13] LABS: BUN/Creatinine Ratio 10.2 (10.0-20.0); Total Protein 6.8 g/dL (5.7-8.2)
[2025-02-08 06:15] LABS: Bilirubin, Total 0.4 mg/dL (0.2-1.0)
[2025-02-08 06:30] LABS: Blood Urea Nitrogen 6 mg/dL (9-23)
[2025-02-08] MEDS: LEVALBUTEROL HCL 1.25 MG/3 ML NEB NEB SCH (06:44)
--- NOTE | 2025-02-08 06:58 | ECG ---
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
--- NOTE | 2025-02-08 09:00 | DVHPN2 ---
Reviewed: Care Plan, H&P, Labs, Medications, Previous Orders, Radiology Changes from previous H/P or p: No Changes Eyes: No Pain, No Vision change, No Conjunctivae inflammation, No Eyelid inflammation, No Other, No Redness ENT: No Ear pain, No Ear discharge, No Nose pain, No Nose discharge, No Nose congestion, No Mouth pain, No Mouth swelling, No Throat pain, No Throat swelling, No Other Cardiovascular: No Chest Pain, No Palpitations, No Orthopnea, No Paroxysmal Noc. Dyspnea, No Edema, No Lt Headedness, No Other Respiratory: No Cough, No Dry; Shortness of breath, SOB with excertion; No Wheezing, No Hemoptysis, No Pleuritic Pain, No Sputum; Other (SOB at rest) Gastrointestinal: No Nausea, No Vomiting; Abdominal Pain; No Diarrhea, No Constipation, No Melena, No Hematochezia, No Other Genitourinary: No Dysuria, No Frequency, No Incontinence, No Hematuria, No Retention, No Other Musculoskeletal: No other, No neck pain, No shoulder pain, No arm pain, No back pain, No hand pain, No leg pain, No foot pain Skin: No Rash, No Lesions, No Jaundice, No Bruising, No Other Objective Vitals Vital Signs Date Time Temp Pulse Resp B/P (MAP) Pulse Ox O2 Delivery O2 Flow Rate FiO2 02/08/25 08:47 98.2 96 20 115/53 99 5.0 46 98.2 02/08/25 06:51 Oxymizer Medications Current Medications Medications Dose Ordered Sig/Milena Route Start Time Stop Time Status Last Admin Dose Admin Aspirin 81 mg DAILY PO 02/08/25 10:00 Pantoprazole Sodium 40 mg DAILY IV 02/08/25 10:00 Ceftriaxone Sodium 50 ml @ 100 mls/hr DAILY@09 IV 02/08/25 09:00 Azithromycin 250 ml @ 125 mls/hr DAILY IV 02/08/25 10:00 Methylprednisolone Sodium Succinate 40 mg Q8HR IV 02/08/25 06:00 02/08/25 06:08 40 MG Famotidine 20 mg Q12HR IV 02/08/25 10:00 Levalbuterol HCl 0.625 mg Q6HR NEB 02/08/25 06:00 02/08/25 06:44 0.625 MG Diagnostic Test (Pha) 1 strip ACHS 02/08/25 07:00 02/08/25 06:08 1 STRIP Insulin Human Regular HS SC 02/08/25 22:00 Insulin Human Regular AC SC 02/08/25 07:00 02/08/25 06:12 6 UNITS Dextrose 50 ml UD PRN IV 02/08/25 04:45 Sodium Chloride 10 ml Q8HR IV 02/08/25 06:00 02/08/25 06:00 10 ML Acetaminophen/ Hydrocodone Bitart 1 tab Q4HP PRN PO 02/08/25 04:45 Ondansetron HCl 4 mg Q4HP PRN IV 02/08/25 04:45 Docusate Sodium 100 mg BIDPRN PRN PO 02/08/25 04:45 Acetaminophen 650 mg Q6HP PRN PO 02/08/25 04:45 Nitroglycerin 0.4 mg Q5MINP PRN SL 02/08/25 04:45 Morphine Sulfate 2 mg Q30M PRN IV 02/08/25 04:45 Laboratory Results Laboratory Tests 02/08/25 01:00 02/08/25 04:16 Chemistry Test 02/08/25 01:00 02/08/25 04:16 Albumin 3.2 g/dL (3.2-4.8) 3.3 g/dL (3.2-4.8) Calcium Level 8.4 mg/dL (8.7-10.4) L 8.0 mg/dL (8.7-10.4) L Total Protein 6.9 g/dL (5.7-8.2) 6.8 g/dL (5.7-8.2) Cardiac Markers Test 02/08/25 01:00 B-Type Natriuretic Peptide 132.08 pg/mL (0-100) LFT Test 02/08/25 01:00 02/08/25 04:16 Alanine Aminotransferase (ALT) < 9 U/L (7-40) < 9 U/L (7-40) Alkaline Phosphatase 84 U/L (46-116) 84 U/L (46-116) Aspartate Amino Transferase (AST) 12 U/L (13-40) L 14 U/L (13-40) Total Bilirubin 0.4 mg/dL (0.2-1.0) 0.4 mg/dL (0.2-1.0) Labs and/or images reviewed: Labs reviewed by me, Image(s) reviewed by me Assessment/Plan Assessment/Plan Acute on chronic respiratory failure: Oxygen by nasal cannula Sepsis secondary to left upper lobe pneumonia: Rocephin azithromycin Solu- Medrol Acute COPD exacerbation: Albuterol Atrovent Solu-Medro Use of home oxygen 2 L/min Elevated troponin 93: Aspirin, cardiology consult for Dr. Coto Acute hypokalemia potassium 3.1: Replace potassium Chronic anemia hemoglobin 9.9 Diabetes Hypertension COPD Anxiety Dementia Time spent 70 minutes Advanced care planning time 20 minutes Patient is full code Flu test pending Ivania test pending Plan discussed with: Patient My Orders Orders - GINGER BRICEÑO MD Procedure Category Date Status Time * Cardiology Consult CONS 02/08/25 Transmitted 08:54 Date of Service: Feb 08, 2025 Billing Provider: GINGER BRICEÑO MD Common Visit Codes: [id number] CARE 30-74 MIN GINGER BRICEÑO MD Feb 08, 2025 09:00
[2025-02-08 09:29] LABS: Urine Protein, UAD Negative (Negative)
[2025-02-08] MEDS: AZITHROMYCIN 500MG/ 250ML 250 ML IV SCH (10:00)
--- NOTE | 2025-02-08 11:49 | DVHINCON2 ---
DAVID URENA [facility] 02/08/25 1149: Date Seen: Feb 08, [address] 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 He is currently admitted for sepsis secondary to pneumonia. During his ED evaluation, troponin levels were found to be mildly elevated at 61-79-93, prompting cardiology consultation. On assessment, the patient is alert and oriented but a poor historian. He denies chest pain, dizziness, palpitations, or shortness of breath at that time of evaluation. A 12 lead ECG shows sinus tachycardia at 1-2 beats per minute without signs of acute ischemia. Telemetry reveals normal sinus rhythm. He does not current knee follow with a manager testing. Past Medical History As stated in HPI Past Surgical History Denies Family History: Diabetes mellitus G8 MOTHER G8 FATHER Family History Reviewed, non-contributory to the management of this case. Social History The patient lives at home, denies smoking, alcohol or illicit drugs abuse. Allergies: Coded Allergies: NO KNOWN ALLERGIES (Unverified , 04/02/24) Home Meds Active Scripts Doxycycline (Monohydrate) (Doxycycline) 100 Mg Cap, 100 MG PO BID for 5 Days, #10 CAP Prov:VIVIANRENETTASONIA RESIDENT 01/22/25 Amoxicillin & Pot Clavulanate (AUGMENTIN TABLET) 875 Mg Tb, 875 MG PO BID for 10 Days, #20 TAB Prov:KEITH PARK RESIDENT 01/22/25 Reported Medications Pregabalin (Pregabalin) 200 Mg Cap, 1 CAP PO BIDPRN PRN for neuropathy 04/03/24 Atorvastatin Calcium (ATORVASTATIN CALCIUM) 20 Mg Tab, 1 TAB PO DAILY 04/03/24 Glipizide (Glipizide) 5 Mg Tab, 1 TAB PO DAILY 04/03/24 Apixaban Base (ELIQUIS) 5 Mg Tab, 5 MG PO BID, TAB 04/03/24 Current Medications Current Medications Medications (Trade) Dose Ordered Sig/Milena Route PRN Reason Start Time Stop Time Status Last Admin Aspirin 81 mg DAILY PO 02/08/25 10:00 Pantoprazole Sodium (Protonix) 40 mg DAILY IV 8/3/25 10:00 Ceftriaxone Sodium 50 ml @ 100 mls/hr DAILY@09 IV 02/08/25 09:00 Azithromycin 250 ml @ 125 mls/hr DAILY IV 02/08/25 10:00 Methylprednisolone Sodium Succinate (Solu Medrol) 40 mg Q8HR IV 02/08/25 06:00 02/08/25 06:08 Famotidine (Pepcid Injection) 20 mg Q12HR IV 02/08/25 10:00 Levalbuterol HCl (Xopenex Medneb) 0.625 mg Q6HR NEB 02/08/25 06:00 02/08/25 06:44 Diagnostic Test (Pha) (Accu-Chek Comfort Curve T) 1 strip ACHS 02/08/25 07:00 02/08/25 06:08 Insulin Human Regular (InsuLIN R) HS SC 02/08/25 22:00 Insulin Human Regular (InsuLIN R) AC SC 02/08/25 07:00 02/08/25 06:12 Dextrose 50 ml UD PRN IV Blood Sugar LESS THAN 60 02/08/25 04:45 Sodium Chloride (Saline Lock Ns) 10 ml Q8HR IV 02/08/25 06:00 02/08/25 06:00 Acetaminophen/ Hydrocodone Bitart ([place] 5/325MG Tab) 1 tab Q4HP PRN PO MODERATE PAIN (4-6 PAIN SCALE) 02/08/25 04:45 Ondansetron HCl (Zofran) 4 mg Q4HP PRN IV NAUSEA / VOMITING 02/08/25 04:45 Docusate Sodium (Colace Capsule) 100 mg BIDPRN PRN PO FOR CONSTIPATION 02/08/25 04:45 Acetaminophen (Tylenol Tablet) 650 mg Q6HP PRN PO PAIN SCALE 1-3 OR TEMP>100.4 02/08/25 04:45 Nitroglycerin (Ntrostat Sublingual) 0.4 mg Q5MINP PRN SL FOR CHEST PAIN 02/08/25 04:45 Morphine Sulfate 2 mg Q30M PRN IV FOR CHEST PAIN 02/08/25 04:45 Oxycodone/ Acetaminophen (Percocet 5/ 325MG Tablet) 1 tab Q4HP PRN PO SEVERE PAIN (7-10 PAIN SCALE) 02/08/25 09:30 Review of Systems Constitutional: No symptom reported Ears, Nose, & Throat: No symptom reported Eyes: No symptom reported Neurological: No symptoms reported Pulmonary/Respiratory: Denies dyspnea currently, being treated for pneumonia Cardiovascular: Denies chest pain, palpitations, or syncope Gastrointestinal: No symptom reported Genitourinary: No symptom reported Musculoskeletal: No symptom reported Skin: No symptom reported Psychiatric: No symptom reported Endocrine: No symptom reported Hemotologic/Lymphatic: No symptom reported Vital Signs Vital Signs Date Time Temp Pulse Resp B/P (MAP) Pulse Ox O2 Delivery O2 Flow Rate FiO2 02/08/25 10:00 96 20 112/56 (74) 97 02/08/25 08:47 98.2 5.0 46 98.2 02/08/25 08:00 Oxymizer Physical Exam INITIAL VITAL SIGNS: Reviewed by me GENERAL: Alert and interactive. No acute distress. HEAD: Head is normocephalic and atraumatic. EYES: EOMI, PERRL. No scleral icterus. No conjunctival injection. ENT: Moist mucous membranes. NECK: Supple, No masses, Full range of motion. RESPIRATORY: Mild basilar bilateral crackles, no increased work of breathing. CV: Tachycardic, regular rhythm, no murmurs GI/: Active bowel sounds, soft, nondistended, nontender. No guarding. No rebound. No masses. No CVA tenderness. INTEGUMENTARY: Warm and dry. No obvious rashes. NEUROLOGIC: Alert and oriented. Face is symmetric. Speech is normal. Moves all extremities equally. Labs/Diagnostic Data Labs Test 02/08/25 09:10 02/08/25 06:08 02/08/25 04:16 02/08/25 01:00 Range/Units Urine Color Yellow Yellow Urine Clarity Clear Clear Urine pH 6.0 5.0-9.0 Urine Specific [place] 1.016 1.001-1.035 Urine Protein Negative Negative Urine Ketones 1+ H Negative Urine Blood Negative Negative /uL Urine Nitrite Negative Negative Urine Bilirubin Negative Negative Urine Urobilinogen Normal Negative mg/dL Urine Leukocyte Esterase Negative Negative /uL Urine RBC 1 0 - 3 /hpf Urine Microscopic WBC 1 0-3 /HPF Urine Squamous Epithelial Cells None seen <5 /hpf Urine Bacteria None seen None Seen /hpf Urine Mucus Few None Seen Urine Glucose Normal Normal mg/dL POC Glucose 215 H 70-106 mg/dl Sodium Level 140 136-145 mmol/L Potassium Level 4.0 3.5-5.1 mmol/L Chloride Level 100 98-107 mmol/L Carbon Dioxide Level 27 20-31 mmol/L Anion Gap 13 5-15 Blood Urea Nitrogen 6 L 9-23 mg/dL Creatinine 0.59 L 0.700-1.30 mg/dL Glomerular Filtration Rate Calc 98 >90 mL/min BUN/Creatinine Ratio 10.2 10.0-20.0 Serum Glucose 184 H 74-106 mg/dL Calcium Level 8.0 L 8.7-10.4 mg/dL Total Bilirubin 0.4 0.2-1.0 mg/dL Aspartate Amino Transferase (AST) 14 13-40 U/L Alanine Aminotransferase (ALT) < 9 7-40 U/L Alkaline Phosphatase 84 46-116 U/L Troponin I High Sensitivity 93 *H </=54 ng/L Total Protein 6.8 5.7-8.2 g/dL Albumin 3.3 3.2-4.8 g/dL White Blood Count 12.4 H 4.4-10.8 10^3/uL Red Blood Count 3.58 L 4.5-5.90 10^6/uL Hemoglobin 9.9 L 13.5-17.5 g/dL Hematocrit 30.3 L 41.0-53.0 % Mean Corpuscular Volume 84.5 80.0-100.0 fL Mean Corpuscular Hemoglobin 27.6 L 28.0-32.0 pg Mean Corpuscular Hemoglobin Concent 32.6 32.0-36.0 g/dL Red Cell Distribution Width 17.7 H 11.8-14.3 % Platelet Count 432 140-450 10^3/uL Mean Platelet Volume 6.7 L 6.9-10.8 fL Neutrophils (%) (Auto) 89.7 H 37.0-80.0 % Lymphocytes (%) (Auto) 4.3 L 10.0-50.0 % Monocytes (%) (Auto) 5.9 0.0-12.0 % Eosinophils (%) (Auto) 0.0 0.0-7.0 % Basophils (%) (Auto) 0.1 0.0-2.0 % Neutrophils # (Auto) 11.1 H 1.6-8.6 10 ^3/uL Lymphocytes # (Auto) 0.5 0.4-5.4 10 ^3/uL Monocytes # (Auto) 0.7 0-1.3 10 ^3/uL Eosinophils # (Auto) 0 0-0.8 10 ^3/uL Basophils # (Auto) 0 0-0.2 10 ^3/uL Nucleated Red Blood Cells 0.0 % B-Type Natriuretic Peptide 132.08 0-100 pg/mL PROCEDURE(s): CXRP - CHEST PORTABLE REASON: sob ORDER NUMBER(s): [id number], ACCESSION NUMBER(s): [id number] CHEST RADIOGRAPH Indication: sob Technique: 2 views Comparison: XY CHEST PORTABLE on DOS: 01/17/25, XY CHEST XRAY 1 VIEW on DOS: 01/12/25, XY CHEST PORTABLE on DOS: 01/07/25, XY CHEST XRAY 1 VIEW on DOS: 04/12/24, XY CHEST PORTABLE on DOS: 04/11/24 FINDINGS: Lines and Tubes: Overlying leads. Lungs: Development of focal left suprahilar nodular consolidation. Similar appearance of coarse reticular and patchy opacities throughout both lungs, with volume loss in the right lung. Pleura: No visualized effusion or pneumothorax ; the left costophrenic angle is excluded. Cardiomediastinal contours: Unremarkable. Bones: No acute osseous abnormality. IMPRESSION: 1. New left suprahilar opacity superimposed on a background of coarse reticular opacities. The nonspecific radiographic findings suggest pneumonia with underlying chronic fibrosis or edema. Assessment NSTEMI likey type 2 due to below Transient AFib on Eliquis Sepsis- Pneumonia HTN COPD exacerbation DM type 2 Dementia Plan/Recommendation (Dr. Benjamin): Mild troponin elevation likely representing type 2 UT from systemic infection. He is hemodynamically stable, asymptomatic from a cardiac standpoint, and ECG shows sinus tachycardia without ischemic changes. Telemetry confirmed sinus rhythm. Given his history of AFib and a CHADS-VASc score of 5, he is at high risk for thromboembolic events, and despite a HAS BLED score of 2, the benefit of anticoagulation outweighs the bleeding risk. Therefore, we recommend continuing Eliquis for stroke prevention. No further cardiac workup in indicated that this time. We advised telemetry monitoring during hospitalization and out patient cardiology follow-up for rhythm and heart f ailure management. Cardiology will sign off unless new cardiac concerns arise. This medical document was created using an electronic medical record system with voice recognition software and computerized dictation system. Although this document has been carefully reviewed, there might still be some phonetic and typographical errors. Occasional wrong-word or ``sound-alike substitutions may have occurred due to the inherent limitations of voice recognition software. These areas are purely typographical due to imperfections of the software programs and do not reflect any compromise in the patient's medical care. Please read the chart carefully and recognize, using context, where these substitutions have occurred. Plan discussed with: Patient Plan discussed with: Patient NYHA Physical activity limitations: Class2(Slight)fatigue,sob Date of Service: Feb 08, 2025 Billing Provider: ARNOLD BENJAMIN MD Cardiology Common Codes: CONSULT ONLY Cardiology Consultation Codes: [id number] CONSULT <45MIN ARNOLD BENJAMIN MD 02/09/25 0840: Family History: Diabetes mellitus G8 MOTHER G8 FATHER Allergies: Coded Allergies: NO KNOWN ALLERGIES (Unverified , 04/02/24) Home Meds Active Scripts Doxycycline (Monohydrate) (Doxycycline) 100 Mg Cap, 100 MG PO BID for 5 Days, #10 CAP Prov:KALEIGH PARK RESIDENT 01/22/25 Amoxicillin & Pot Clavulanate (AUGMENTIN TABLET) 875 Mg Tb, 875 MG PO BID for 10 Days, #20 TAB Prov:KALEIGH PARK RESIDENT 01/22/25 Reported Medications Pregabalin (Pregabalin) 200 Mg Cap, 1 CAP PO BIDPRN PRN for neuropathy 04/03/24 Atorvastatin Calcium (ATORVASTATIN CALCIUM) 20 Mg Tab, 1 TAB PO DAILY 04/03/24 Glipizide (Glipizide) 5 Mg Tab, 1 TAB PO DAILY 04/03/24 Apixaban Base (ELIQUIS) 5 Mg Tab, 5 MG PO BID, TAB 04/03/24 Plan/Recommendation agree with MANAGER PART assessment and plan DAVID URENA Feb 08, 2025 11:49 ARNOLD BENJAMIN MD Feb 09, 2025 08:40
[2025-02-08] MEDS: cefTRIAXone 1GM/50ML D5W 50 ML IV SCH (13:46)
[2025-02-08] MEDS: PANTOPRAZOLE 40 MG/10 ML VIAL INJ IV SCH (13:46)
[2025-02-08] MEDS: FAMOTIDINE (10MG/ML) 2ML VL IV SCH (13:46)
[2025-02-08] MEDS: OXYCODONE W/ ACETAMINOPHEN 5/325MG TABLET PO PRN (13:48)
[2025-02-08] MEDS: DOCUSATE SOD 100 MG CAP PO PRN (22:21)
[2025-02-09] VITALS (10 sets, daily range): BP systolic 122–141; BP diastolic 58–81; PULSE 56–78; RESP 17–20; TEMP 97.8–98.7; O2SAT 97–100
--- NOTE | 2025-02-09 10:21 | DVHPN2 ---
Reviewed: Care Plan, H&P, Labs, Medications, Previous Orders, Radiology Changes from previous H/P or p: No Changes Eyes: No Pain, No Vision change, No Conjunctivae inflammation, No Eyelid inflammation, No Other, No Redness ENT: No Ear pain, No Ear discharge, No Nose pain, No Nose discharge, No Nose congestion, No Mouth pain, No Mouth swelling, No Throat pain, No Throat swelling, No Other Cardiovascular: No Chest Pain, No Palpitations, No Orthopnea, No Paroxysmal Noc. Dyspnea, No Edema, No Lt Headedness, No Other Respiratory: No Cough, No Dry; Shortness of breath, SOB with excertion; No Wheezing, No Hemoptysis, No Pleuritic Pain, No Sputum; Other (SOB at rest) Gastrointestinal: No Nausea, No Vomiting; Abdominal Pain; No Diarrhea, No Constipation, No Melena, No Hematochezia, No Other Genitourinary: No Dysuria, No Frequency, No Incontinence, No Hematuria, No Retention, No Other Musculoskeletal: No other, No neck pain, No shoulder pain, No arm pain, No back pain, No hand pain, No leg pain, No foot pain Skin: No Rash, No Lesions, No Jaundice, No Bruising, No Other Objective Vitals Vital Signs Date Time Temp Pulse Resp B/P (MAP) Pulse Ox O2 Delivery O2 Flow Rate FiO2 02/09/25 08:30 97.8 65 18 122/72 (89) 99 97.8 02/09/25 08:00 Nasal Cannula* 2 28 Intake/Output Intake and Output 02/09/25 07:00 Intake Total 400 ml Output Total 200 ml Balance 200 ml Intake Oral 400 ml Output Urine Total 200 ml Medications Current Medications Medications Dose Ordered Sig/Milena Route Start Time Stop Time Status Last Admin Dose Admin Aspirin 81 mg DAILY PO 02/08/25 10:00 02/08/25 13:46 81 MG Pantoprazole Sodium 40 mg DAILY IV 02/08/25 10:00 02/08/25 13:46 40 MG Ceftriaxone Sodium 50 ml @ 100 mls/hr DAILY@09 IV 02/08/25 09:00 02/08/25 13:46 100 MLS/HR Azithromycin 250 ml @ 125 mls/hr DAILY IV 02/08/25 10:00 02/08/25 10:00 125 MLS/HR Methylprednisolone Sodium Succinate 40 mg Q8HR IV 02/08/25 06:00 02/09/25 06:07 40 MG Famotidine 20 mg Q12HR IV 02/08/25 10:00 02/08/25 22:22 20 MG Levalbuterol HCl 0.625 mg Q6HR NEB 02/08/25 06:00 02/09/25 06:29 0.625 MG Diagnostic Test (Pha) 1 strip ACHS 02/08/25 07:00 02/09/25 06:07 1 STRIP Insulin Human Regular HS SC 02/08/25 22:00 02/08/25 21:22 2 UNITS Insulin Human Regular AC SC 02/08/25 07:00 02/09/25 06:20 3 UNITS Dextrose 50 ml UD PRN IV 02/08/25 04:45 Sodium Chloride 10 ml Q8HR IV 02/08/25 06:00 02/09/25 06:07 10 ML Acetaminophen/ Hydrocodone Bitart 1 tab Q4HP PRN PO 02/08/25 04:45 Ondansetron HCl 4 mg Q4HP PRN IV 02/08/25 04:45 Docusate Sodium 100 mg BIDPRN PRN PO 02/08/25 04:45 02/08/25 22:21 100 MG Acetaminophen 650 mg Q6HP PRN PO 02/08/25 04:45 Nitroglycerin 0.4 mg Q5MINP PRN SL 02/08/25 04:45 Morphine Sulfate 2 mg Q30M PRN IV 02/08/25 04:45 Oxycodone/ Acetaminophen 1 tab Q4HP PRN PO 02/08/25 09:30 02/09/25 06:06 1 TAB Laboratory Results Laboratory Tests 02/08/25 01:00 02/08/25 04:16 Urinalysis Test 02/08/25 09:10 Urine Color Yellow (Yellow) Urine Clarity Clear (Clear) Urine pH 6.0 (5.0-9.0) Urine Specific [place] 1.016 (1.001-1.035) Urine Protein Negative (Negative) Urine Ketones 1+ (Negative) H Urine Blood Negative /uL (Negative) Urine Nitrite Negative (Negative) Urine Bilirubin Negative (Negative) Urine Urobilinogen Normal mg/dL (Negative) Urine Leukocyte Esterase Negative /uL (Negative) Urine RBC 1 /hpf (0 - 3) Urine Microscopic WBC 1 /HPF (0-3) Urine Squamous Epithelial Cells None seen /hpf (<5) Urine Bacteria None seen /hpf (None Seen) Urine Mucus Few (None Seen) Urine Glucose Normal mg/dL (Normal) Labs and/or images reviewed: Labs reviewed by me, Image(s) reviewed by me Assessment/Plan Assessment/Plan Acute on chronic respiratory failure: Oxygen by nasal cannula Sepsis secondary to left upper lobe pneumonia: Rocephin azithromycin Solu- Medrol Acute COPD exacerbation: Albuterol Atrovent Solu-Medro Use of home oxygen 2 L/min Elevated troponin 93: Aspirin, cardiology consult for Dr. Coto Acute hypokalemia potassium 3.1: Replace potassium Chronic anemia hemoglobin 9.9 Diabetes Hypertension COPD Anxiety Dementia Time spent 50 minutes Advanced care planning time 20 minutes Patient is full code Flu test pending Ivania test pending Patient was on [facility] hospice Patient is insisting to be discharged back on hospice today Daughter Cyndee at bed side Plan discussed with: Patient My Orders Orders - GINGER BRICEÑO MD Procedure Category Date Status Time * Duralumin Metalworker CONS 02/08/25 Transmitted Consult 22:45 Mrsa Screen RICH 02/08/25 Uncollected 23:38 Date of Service: Feb 09, 2025 Billing Provider: GINGER BRICEÑO MD Common Visit Codes: [id number] INP/OBS CARE(HIGH) GINGER BRICEÑO MD Feb 09, 2025 10:21
[2025-02-09] MEDS ORDERED: PRED20TA2 PO (10:23)
[2025-02-09] MEDS ORDERED: AZIT500T66 PO (10:23)
--- NOTE | 2025-02-09 10:29 | DVHDS2 ---
Discharge Summary Date of Admission Feb 08, 2025 at 04:38 Date of Discharge: Feb 09, 2025 Admitting Diagnosis Generalized weakness shortness of breath Wounds: None Labs/Diagnostic Data: Laboratory Results Test 02/09/25 06:01 02/08/25 09:10 02/08/25 04:16 02/08/25 01:00 POC Glucose 192 mg/dl (70-106) Urine Color Yellow (Yellow) Urine Clarity Clear (Clear) Urine pH 6.0 (5.0-9.0) Urine Specific [place] 1.016 (1.001-1.035) Urine Protein Negative (Negative) Urine Ketones 1+ (Negative) Urine Blood Negative /uL (Negative) Urine Nitrite Negative (Negative) Urine Bilirubin Negative (Negative) Urine Urobilinogen Normal mg/dL (Negative) Urine Leukocyte Esterase Negative /uL (Negative) Urine RBC 1 /hpf (0 - 3) Urine Microscopic WBC 1 /HPF (0-3) Urine Squamous Epithelial Cells None seen /hpf (<5) Urine Bacteria None seen /hpf (None Seen) Urine Mucus Few (None Seen) Urine Glucose Normal mg/dL (Normal) Sodium Level 140 mmol/L (136-145) Potassium Level 4.0 mmol/L (3.5-5.1) Chloride Level 100 mmol/L (98-107) Carbon Dioxide Level 27 mmol/L (20-31) Anion Gap 13 (5-15) Blood Urea Nitrogen 6 mg/dL (9-23) Creatinine 0.59 mg/dL (0.700-1.30) Glomerular Filtration Rate Calc 98 mL/min (>90) BUN/Creatinine Ratio 10.2 (10.0-20.0) Serum Glucose 184 mg/dL (74-106) Calcium Level 8.0 mg/dL (8.7-10.4) Total Bilirubin 0.4 mg/dL (0.2-1.0) Aspartate Amino Transferase (AST) 14 U/L (13-40) Alanine Aminotransferase (ALT) < 9 U/L (7-40) Alkaline Phosphatase 84 U/L (46-116) Troponin I High Sensitivity 93 ng/L (</=54) Total Protein 6.8 g/dL (5.7-8.2) Albumin 3.3 g/dL (3.2-4.8) White Blood Count 12.4 10^3/uL (4.4-10.8) Red Blood Count 3.58 10^6/uL (4.5-5.90) Hemoglobin 9.9 g/dL (13.5-17.5) Hematocrit 30.3 % (41.0-53.0) Mean Corpuscular Volume 84.5 fL (80.0-100.0) Mean Corpuscular Hemoglobin 27.6 pg (28.0-32.0) Mean Corpuscular Hemoglobin Concent 32.6 g/dL (32.0-36.0) Red Cell Distribution Width 17.7 % (11.8-14.3) Platelet Count 432 10^3/uL (140-450) Mean Platelet Volume 6.7 fL (6.9-10.8) Neutrophils (%) (Auto) 89.7 % (37.0-80.0) Lymphocytes (%) (Auto) 4.3 % (10.0-50.0) Monocytes (%) (Auto) 5.9 % (0.0-12.0) Eosinophils (%) (Auto) 0.0 % (0.0-7.0) Basophils (%) (Auto) 0.1 % (0.0-2.0) Neutrophils # (Auto) 11.1 10 ^3/uL (1.6-8.6) Lymphocytes # (Auto) 0.5 10 ^3/uL (0.4-5.4) Monocytes # (Auto) 0.7 10 ^3/uL (0-1.3) Eosinophils # (Auto) 0 10 ^3/uL (0-0.8) Basophils # (Auto) 0 10 ^3/uL (0-0.2) Nucleated Red Blood Cells 0.0 % B-Type Natriuretic Peptide 132.08 pg/mL (0-100) Other Laboratory Tests 02/08/25 04:16 02/08/25 01:00 Brief Hx & Hospital Course: 79-year-old male with COPD home oxygen use diabetes hypertension COPD anxiety dementia chronic anemia brought in for generalized weakness and shortness of breaths. Found to have left upper lobe pneumonia started on Rocephin azithromycin and Solu-Medrol albuterol Atrovent. Slightly elevated troponin [address] Coto felt to be non ST-elevation PA type 2 potassium was replaced. Patient's daughter Cyndee at bedside. Patient was on [facility] hospice prior to admission and is requesting to be discharged today. Advised the patient might be better off for two or three more days of IV antibiotics but he is insisting to be discharged and the daughter is requesting also to be discharged. Patient discharged home on hospice. Prescription for azithromycin and prednisone transmitted to the pharmacy Consults/Reason for consult Cardiology Dr. Coto Operations or Procedures None Condition at Discharge: Fair Final Diagnosis/Problems List Acute on chronic respiratory failure: Oxygen by nasal cannula Sepsis secondary to left upper lobe pneumonia: Rocephin azithromycin Solu-Medrol Acute COPD exacerbation: Albuterol Atrovent Solu-Medro Use of home oxygen 2 L/min Elevated troponin 93: Aspirin, cardiology consult for Dr. Coto Acute hypokalemia potassium 3.1: Replace potassium Chronic anemia hemoglobin 9.9 Diabetes Hypertension COPD Anxiety Dementia Discharge Disposition: Hospice - Home Discharge Instruct/Medications Diet: Cardiac 2g Na,low cholest Activity: Light activity Follow Up/Referral: Follow up with the primary [place] all previous home medications Medications: Azithromycin Prednisone tablets Transmitted to [facility] pharmacy Scheduled Amoxicillin & Pot Clavulanate (Augmentin Tablet), 875 MG PO BID Apixaban Base (Eliquis), 5 MG PO BID, (Reported) Atorvastatin Calcium (Atorvastatin Calcium), 1 TAB PO DAILY, (Reported) Azithromycin (Azithromycin), 1 TAB PO DAILY Doxycycline (Monohydrate) (Doxycycline), 100 MG PO BID Glipizide (Glipizide), 1 TAB PO DAILY, (Reported) Prednisone (Prednisone), 20 MG PO DAILY Scheduled PRN Pregabalin (Pregabalin), 1 CAP PO BIDPRN PRN for neuropathy, (Reported) 39 (Time taken for discharge summary 39 minutes) Discharge Statement: "Patient was advised to return to the ER or call 911 if any headaches, dizziness, shortness of breath, chest pain, abdominal pain, bleeding, fevers, or worsening of medical condition. Patient was counseled about treatment plan, medications, possible side effects, patientverbalized understanding. All questions were answered to the best of my ability. This discharge took greater then 30 minutes in planning, reviewing documentation, counseling the patient, and discussing with other team members." ASSESSMENT ASSESSMENT Hospital Course Improved marginally Assessment Acute on chronic respiratory failure: Oxygen by nasal cannula Sepsis secondary to left upper lobe pneumonia: Rocephin azithromycin Solu- Medrol Acute COPD exacerbation: Albuterol Atrovent Solu-Medro Use of home oxygen 2 L/min Elevated troponin 93: Aspirin, cardiology consult for Dr. Coto Acute hypokalemia potassium 3.1: Replace potassium Chronic anemia hemoglobin 9.9 Diabetes Hypertension COPD Anxiety Dementia Date of Service: Feb 09, 2025 Billing Provider: GINGER BRICEÑO MD Common Visit Codes: [id number]/OBS DISCH DAY >30min GINGER BRICEÑO MD Feb 09, 2025 10:29
== END 2025-02-09 14:27 | disposition hospice, home (50) | DRG 871 ==
LOC: EDUNIT# 22:33 → EDBD 22:33 → ER 22:33 → OVERFLOW 02-08 04:38 → TELE-CENTR 02-08 20:10
PROVIDERS: ADMIT Family Medicine; ATTEND Family Medicine
DX: A41.9 Sepsis, unspecified organism (principal); I21.A1 Myocardial infarction type 2; J96.20 Acute and chronic respiratory failure, unspecified whether with hypoxia or hypercapnia; J15.69 Pneumonia due to other Gram-negative bacteria; J15.9 Unspecified bacterial pneumonia; F03.94 Unspecified dementia, unspecified severity, with anxiety; J44.1 Chronic obstructive pulmonary disease with (acute) exacerbation; I50.22 Chronic systolic (congestive) heart failure; J44.0 Chronic obstructive pulmonary disease with (acute) lower respiratory infection; Z51.5 Encounter for palliative care; E87.6 Hypokalemia; E11.9 Type 2 diabetes mellitus without complications; D64.9 Anemia, unspecified; I11.0 Hypertensive heart disease with heart failure; I48.91 Unspecified atrial fibrillation; Z79.01 Long term (current) use of anticoagulants; Z99.81 Dependence on supplemental oxygen; Z83.3 Family history of diabetes mellitus; Z79.1 Long term (current) use of non-steroidal anti-inflammatories (NSAID); Z87.891 Personal history of nicotine dependence
CPT/HCPCS: 36415; 71045; 74176; 80053; 81001; 82962; 83880; 84484; 85025; 93005; 94640; 96374; 96375; 99291; G0378; J1815; J2405; J2470; J3490